=== PATIENT | female | born 1940 | race Caucasian/White ===

== ENCOUNTER → 2018-03-07 | Outpatient (CLI) | payer MEDICARE ==
--- NOTE | 2018-03-09 08:51 | MM ---
Reason for exam: screening (asymptomatic). Last mammogram was performed 5 years and 1 month ago. History: Patient is postmenopausal. Family history of breast cancer in 2 paternal cousins and breast cancer in paternal aunt at age 60. Took hormonal contraceptives for 3 years beginning at age 20. Took estrogen for 6 months beginning at age 29. Taking other hormone for 10 years beginning at age 58. Physical Findings: A clinical breast exam by your physician is recommended on an annual basis and results should be correlated with mammographic findings. MG 3D Screening Mammo W/Cad Bilateral CC and MLO view(s) were taken. Prior study comparison: January 24, 2013, bilateral digital screening mammo w/CAD. September 29, 2011, bilateral digital screening mammo w/CAD. New 1.4cm cutaneous mass undersurface of the right breast measuring 1.4cm corresponds to the boil indicated by the tech. Otherwise, no significant change. ASSESSMENT: Probably benign, BI-RAD 3 RECOMMENDATION: Follow-up diagnostic mammogram of the right breast in 3 months. (following treatment of patient's boil) Manage on a clinical basis with regard to patient ruptured right breast boil.
== END | disposition home or self-care (01) ==
LOC: RADMAMWWP 11:18
PROVIDERS: ATTEND Family Medicine
DX: Z12.31 Encounter for screening mammogram for malignant neoplasm of breast (principal)
CPT/HCPCS: 77063; 77067

== ENCOUNTER → 2018-03-10 | Day surgery (SDC) | payer MEDICARE ==
[~2018-03-10] MED LIST: ALLOPURINOL 300 MG TAB PO SCH; ALPRAZolam 0.25 MG TAB PO PRN; ALPRAZolam 0.5 MG TAB PO PRN; ASPIRIN 325 MG TAB PO STA; FOLIC ACID PO SCH; IOPAMIDOL-370 125ML BTL INJ ONE; LEVOTHYROXINE 75 MCG TAB PO SCH; LIDOCAINE 2% INJ 20 MG/ML (20 ML MDV) ONE; LIDOCAINE 2% INJ 20 MG/ML SQ ONE; METOPROLOL TARTRATE 50 MG TAB PO SCH; MULTIVITAMINS, THERA 1 EACH TAB PO SCH; NITROGLYCERIN SL TABS 0.4 MG TAB SUBLINGUAL PRN; NON-FORMULARY DRUG (Aspirin [Adult Low Dose Aspirin Ec] 81 MG) PO SCH; NON-FORMULARY DRUG (Calcium Carbonate [Calcium] 1 TAB) PO SCH; NON-FORMULARY DRUG (Cyanocobalamin (Vitamin B-12) [Vitamin B-12] 1,000 MCG) PO SCH; NON-FORMULARY DRUG (Lovastatin 40 MG) PO SCH; NON-FORMULARY DRUG (Omeprazole 20 MG) PO SCH; RX INFO: IV CONTRAST WAS GIVEN 1 EACH MISC MISCELLANE PRN; SODIUM CHLORIDE 0.9% 1,000 ML IV SCH; SODIUM CHLORIDE 0.9% 1,000 ML in EMPTY BAG 1 BAG IV ONE; TERAZOSIN 2 MG PO SCH; VERAPAMIL 2.5 MG/ML 2 ML AMP ONE; fentaNYL (PF) 50 MCG/ML 2 ML AMP IV ONE; fentaNYL (PF) 50 MCG/ML 2 ML AMP ONE
[2018-03-10 07:13] VITALS: RESP 18; TEMP 98.2
--- NOTE | 2018-03-10 09:01 | CC ---
CARDIAC CATHETERIZATION REPORT Ms. Carbone is a 77-year-old female with a known history of coronary artery disease, status post coronary artery bypass grafting performed in 1997, who presented with symptoms of progressive dyspnea and had an abnormal myocardial perfusion imaging with evidence of stress-induced ischemia involving the anterolateral wall. In view of that, recommendation made regarding cardiac catheterization. The procedures, risks and complication were discussed with the patient who is in full understanding and agreement. PROCEDURE: Patient was brought to the Wireless Cellular Technician in a fasting semi-sedated state after receiving fentanyl and Benadryl and achieving moderate conscious sedated state using Xylocaine anesthesia and Seldinger technique, a 6-Palestinian sheath was introduced in the right femoral artery. Selective right and left angiography performed using 6-Palestinian 4 bend right and left Carola catheter. Multiple views of the coronary artery including hemiaxial views were obtained. Following that, the 6-Palestinian right Carola catheter was used to cannulate the saphenous vein graft to the right coronary artery, to ramus intermedius and DONOVAN to LAD. Images of the grafts were obtained. Following that, a 6- Palestinian tight pigtail catheter was introduced into the left ventricle and a 30 degree KAYE view of the left ventricle was obtained. Following that, the catheter and sheaths were removed. Hemostasis was obtained with deployment of an Angio-Seal. There was no immediate complication. Patient was returned to her room in stable condition. FINDINGS: 1. FLUOROSCOPY: There was calcification involving the left main, LAD and left circumflex. 2. LEFT MAIN: This vessel is a large bifurcating left circumflex, left anterior descending artery. Left main coronary artery has a 99% stenosis distally. 3. LEFT ANTERIOR DESCENDING ARTERY: This vessel is totally occluded proximally with no significant antegrade flow. 4. LEFT CIRCUMFLEX: This vessel is totally occluded proximally with no antegrade flow. 5. RIGHT CORONARY ARTERY: This vessel is totally occluded proximally with no antegrade flow. 6. SAPHENOUS VEIN GRAFT TO THE RIGHT CORONARY ARTERY: The proximal distal anastomotic site are patent. The flow into the PDA and PLV is brisk. There is intimal disease in the [place] right coronary artery with area of stenosis up to 40%-50%. The rest of the vessel has no high-grade stenosis. 7. SAPHENOUS VEIN GRAFT TO THE RAMUS INTERMEDIUS: The proximal distal anastomotic site are patent. The flow into the ramus intermedius is brisk. There is intimal disease into the saphenous vein graft with an area of stenosis up to 20%-30% without any evidence of high-grade stenosis. 8. DONOVAN TO LAD: The distal anastomotic site is patent. The flow into the LAD is brisk. There is no evidence of high-grade stenosis. 9. LEFT VENTRICULOGRAM: Left ventriculogram is performed in 30 degree KAYE view and revealed mid anterior wall hypokinesis. Estimated ejection fraction 50%. There was no significant mitral regurgitation. An incidental abdominal aortic aneurysm was noted. HEMODYNAMICS: There was no gradient across the aortic valve. The left ventricle end-diastolic pressure was 11. Diastolic pressure was 16-20 mmHg. CONCLUSION: 1. Severe triple-vessel disease. 2. Patent DONOVAN to left anterior descending artery. 3. Patent saphenous vein graft to the right coronary artery into the ramus intermedius. 4. Mildly impaired left ventricular systolic function with evidence of abdominal aortic aneurysm. RECOMMENDATION: I will maximize her medical therapy and initiate anticoagulation. She will be further evaluated regarding her abdominal aortic aneurysm and depending on progress, further recommendation will be made. Those findings and recommendations were discussed with the patient and her family who is in full understanding and agreement. Duration of procedure is 20 minutes. MMODL / IJN: [id number] /
[2018-03-10 13:00] VITALS: BP 122/72; PULSE 105
== END | disposition home or self-care (01) ==
LOC: CATHCVL 06:23
PROVIDERS: ATTEND Internal Medicine Interventional Cardiology
DX: I25.10 Atherosclerotic heart disease of native coronary artery without angina pectoris (principal); I25.810 Atherosclerosis of coronary artery bypass graft(s) without angina pectoris; I25.84 Coronary atherosclerosis due to calcified coronary lesion; I25.82 Chronic total occlusion of coronary artery; I10 Essential (primary) hypertension; I48.1 Persistent atrial fibrillation; E78.2 Mixed hyperlipidemia; Z82.49 Family history of ischemic heart disease and other diseases of the circulatory system; Z79.82 Long term (current) use of aspirin; Z79.890 Hormone replacement therapy; Z79.899 Other long term (current) drug therapy
CPT/HCPCS: 93459; C1760; C1894; C1769; J2001; J3010; Q9967

== ENCOUNTER → 2018-03-14 | Outpatient (CLI) | payer MEDICARE ==
--- NOTE | 2018-03-14 11:32 | US ---
EXAMINATION TYPE: US abdomen complete DATE OF EXAM: 03/14/2018 COMPARISON: PET 2013 CLINICAL HISTORY: Abdominal Aortic Aneurysm I71.4. AAA seen on recent heart cath EXAM MEASUREMENTS: Liver Length: 15.5 cm Gallbladder Wall: 0.2 cm CBD: 0.6 cm Spleen: 13.4 cm Right Kidney: 9.7 x 4.9 x 4.7 cm Left Kidney: 9.6 x 4.9 x 5.0 cm Pancreas: visualized portions wnl, tail limited by overlying midline bowel gas Liver: somewhat heterogeneous without any definite lesion seen at this time Gallbladder: wnl Evidence for sonographic Singh's sign: no CBD: wnl Spleen: enlarged Right Kidney: dilated renal pelvis, 1.6 x 1.8 x 1.7cm exophytic hypoechoic area mid pole Left Kidney: wnl Upper IVC: wnl Abd Aorta: distal aorta AAA measuring 2.9 x 3.2cm and measuring 4 cm in length Visualized aorta shows aneurysm up to 3.2 cm transversely distal aspect new or more prominent from pr ior PET/CT. The visualized liver is heterogeneous without suspicious mass or ductal dilatation. The intrahepatic portion of the IVC is within normal limits. There is no evidence of cholelithiasis. Co mmon bile duct is unremarkable. The visualized portions of the pancreas are homogenous. The spleen is unremarkable. Some cortical thinning in right kidney is present. There is prominent right renal p marco a without calyceal dilatation consistent with extrarenal pelvis redemonstrated. Technologist jana s 1.6 cm round hypoechoic anechoic exophytic lesion likely reflecting proteinaceous cyst which correl ates with CT axial image 77. Left kidney and spleen are unremarkable. IMPRESSION: There is 3.2 cm aneurysm of the infrarenal abdominal aorta.
== END | disposition home or self-care (01) ==
LOC: RADUSWWP 10:25
PROVIDERS: ATTEND Internal Medicine Interventional Cardiology
DX: I71.4 Abdominal aortic aneurysm, without rupture (principal)
CPT/HCPCS: 76700

== ENCOUNTER 2018-08-11 07:40 | Day surgery (SDC) | payer MEDICARE ==
[2018-08-05 16:29] VITALS: BMI 28.3
[~2018-08-11 07:40] MED LIST changes: -ALLOPURINOL 300 MG TAB PO SCH; -ALPRAZolam 0.25 MG TAB PO PRN; -ALPRAZolam 0.5 MG TAB PO PRN; -ASPIRIN 325 MG TAB PO STA; -FOLIC ACID PO SCH; +HEPARIN SODIUM,PORCINE 5,000 UNIT/ML 1 ML VIAL SQ ONE; -IOPAMIDOL-370 125ML BTL INJ ONE; -LEVOTHYROXINE 75 MCG TAB PO SCH; -LIDOCAINE 2% INJ 20 MG/ML (20 ML MDV) ONE; -LIDOCAINE 2% INJ 20 MG/ML SQ ONE; -METOPROLOL TARTRATE 50 MG TAB PO SCH; -MULTIVITAMINS, THERA 1 EACH TAB PO SCH; -NITROGLYCERIN SL TABS 0.4 MG TAB SUBLINGUAL PRN; -NON-FORMULARY DRUG (Aspirin [Adult Low Dose Aspirin Ec] 81 MG) PO SCH; -NON-FORMULARY DRUG (Calcium Carbonate [Calcium] 1 TAB) PO SCH; -NON-FORMULARY DRUG (Cyanocobalamin (Vitamin B-12) [Vitamin B-12] 1,000 MCG) PO SCH; -NON-FORMULARY DRUG (Lovastatin 40 MG) PO SCH; -NON-FORMULARY DRUG (Omeprazole 20 MG) PO SCH; +Pre Op ABX Message 1 EACH MISC MISCELLANE ONE; -RX INFO: IV CONTRAST WAS GIVEN 1 EACH MISC MISCELLANE PRN; -SODIUM CHLORIDE 0.9% 1,000 ML IV SCH; -SODIUM CHLORIDE 0.9% 1,000 ML in EMPTY BAG 1 BAG IV ONE; -TERAZOSIN 2 MG PO SCH; -VERAPAMIL 2.5 MG/ML 2 ML AMP ONE; -fentaNYL (PF) 50 MCG/ML 2 ML AMP IV ONE; -fentaNYL (PF) 50 MCG/ML 2 ML AMP ONE
[2018-08-11 08:30] VITALS: TEMP 98.2
[2018-08-11] MEDS ORDERED: LACTATED RINGERS 1,000 ML IV ONE (08:44)
[2018-08-11] MEDS ORDERED: LIDOCAINE 1% 20 ML VIAL (10MG/ML) FOR IV START INTRADERMA ONE (08:44)
[2018-08-11] MEDS ORDERED: DEXAMETHASONE SOD PHOSPHATE 10 MG/ML 1 ML VIAL IV ONE (08:45)
[2018-08-11] MEDS ORDERED: ONDANSETRON 4 MG/2 ML VIAL IVP ONE (08:45)
--- NOTE | 2018-08-11 08:54 | P.GSHP ---
History of Present Illness H&P Date: 08/11/18 Chief Complaint: Right chest wall skin lesion Cyst 77-year-old female who has a right chest wall skin lesion. The patient has had the lesion several months. It has some intermittent drainage. His located at the inframammary crease under the right breast. Past Medical History Past Medical History: Hyperlipidemia, Hypertension, Thyroid Disorder Additional Past Medical History / Comment(s): GOUT. ANEMIA (NOT SURE WHAT EXACTLY TYPE). History of Any Multi-Drug Resistant Organisms: None Reported Past Surgical History: Section, Coronary Bypass/CABG, Heart Catheterization, Heart Catheterization With Stent, Hysterectomy Additional Past Surgical History / Comment(s): TRIPLE BYPASS. LEFT KNEE TOTAL X2. COLONOSCOPY Past Anesthesia/Blood Transfusion Reactions: No Reported Reaction, Blood Transfusion Reaction Additional Past Anesthesia/Blood Transfusion Reaction / Comment(s): SLOW TO WAKE. HAS HAD 2 UNITS OF BLOOD IN THE PAST FIVE YEARS. Date of Last Stent Placement:: 1995 Smoking Status: Never smoker - Past Family History Mother Family Medical History: No Reported History Father Family Medical History: Cancer Medications and Allergies Home Medications Medication Instructions Recorded Confirmed Type Calcium Carbonate [Calcium] 1 tab PO DAILY 03/08/18 08/05/18 History Cyanocobalamin (Vitamin B-12) 1,000 mcg PO DAILY 03/08/18 08/05/18 History [Vitamin B-12] Folic Acid 1 tab PO DAILY 03/08/18 08/05/18 History Levothyroxine Sodium [Synthroid] 75 mg PO QAM 03/08/18 08/05/18 History Lovastatin [Mevacor] 40 mg PO HS 03/08/18 08/05/18 History Metoprolol Tartrate [Lopressor] 50 mg PO TID 03/08/18 08/05/18 History Multivitamins, Thera [Multivitamin 1 tab PO DAILY 03/08/18 08/05/18 History (formulary)] Omeprazole [PriLOSEC] 20 mg PO HS 03/08/18 08/05/18 History Terazosin [Hytrin] 2 mg PO HS 03/08/18 08/05/18 History Warfarin [Coumadin] 2.5 mg PO MOTUTHSA 08/05/18 08/05/18 History Warfarin [Coumadin] 5 mg PO SUWEFR 08/05/18 08/05/18 History Allergies Allergy/AdvReac Type Severity Reaction Status Date / Time adhesive tape Allergy Rash/Hives Verified 08/11/18 08:11 nickel Allergy REACTED TO Verified 08/11/18 08:11 METAL, KNEE HAD TO REPLACED. codeine AdvReac Nausea & Verified 08/11/18 08:11 Vomiting Surgical - Exam Vital Signs Temp Pulse Resp BP Pulse Ox 98.2 F 95 16 120/75 98 08/11/18 08:28 08/11/18 08:28 08/11/18 08:28 08/11/18 08:28 08/11/18 08:28 - General well developed, no distress - Eyes PERRL - ENT normal pinna - Neck no masses - Respiratory normal expansion - Abdomen Abdomen: soft, non tender - Integumentary 2 cm skin lesion in the right inframammary crease. There is some minimal inflammation. Assessment and Plan Assessment: Right chest wall skin lesion. We'll perform excision.
[2018-08-11] MEDS ORDERED: PROPOFOL 10 MG/ML 20 ML VIAL IV ONE (09:23)
[2018-08-11] MEDS ORDERED: fentaNYL (PF) 50 MCG/ML 2 ML AMP ONE (09:23)
[2018-08-11] MEDS ORDERED: BUPIVACAIN-EPI 0.25%-1:200,000 30 ML VIAL SQ ONE ×2 (09:23→09:41)
[2018-08-11] MEDS ORDERED: MIDAZOLAM 2 MG/2 ML VIAL ONE (09:23)
[2018-08-11] MEDS ORDERED: SODIUM CHLORIDE 0.9% 50 ML with ceFAZolin 2,000 MG IV ONE ×2 (09:39)
--- NOTE | 2018-08-11 10:07 | P.OP ---
Date of Procedure: 08/11/18 Preoperative Diagnosis: Right chest wall skin lesion Postoperative Diagnosis: Right chest wall skin lesion Procedure(s) Performed: Excision of right chest wall skin lesion Anesthesia: EMERY Surgeon: Tommy Hernandez Estimated Blood Loss (ml): 2 Pathology: other (Right chest wall skin lesion) Condition: stable Disposition: PACU Description of Procedure: The patient's placed on the operating table in supine position. She received IV sedation. Her right chest wall was prepped and draped usual sterile fashion. The area was anesthetized 1% local Xylocaine. An elliptical skin incision is made around the lesion. Lesion was located at the inframammary crease. Using left cautery and subcu tissues were divided. The skin was closed interrupted 3-0 Monocryl suture. Dermabond was applied. Patient top procedure well was sent to recovery in stable condition.
[2018-08-11 10:18] VITALS: BP 124/86; PULSE 108; RESP 14
== END 2018-08-11 10:38 | disposition home or self-care (01) ==
LOC: OR 07:40
PROVIDERS: ATTEND Surgery
DX: L72.0 Epidermal cyst (principal); L92.9 Granulomatous disorder of the skin and subcutaneous tissue, unspecified; L90.5 Scar conditions and fibrosis of skin; I10 Essential (primary) hypertension; E78.5 Hyperlipidemia, unspecified; E07.9 Disorder of thyroid, unspecified; M10.9 Gout, unspecified; I48.91 Unspecified atrial fibrillation; Z79.01 Long term (current) use of anticoagulants; Z95.1 Presence of aortocoronary bypass graft; Z95.5 Presence of coronary angioplasty implant and graft; Z79.890 Hormone replacement therapy; Z79.899 Other long term (current) drug therapy; Z88.5 Allergy status to narcotic agent; Z91.09 Other allergy status, other than to drugs and biological substances
CPT/HCPCS: 88304; 11403; J2250; J1644; J1100; J2405; J0690; J3010; J2704

== ENCOUNTER → 2019-03-17 | Outpatient (CLI) | payer MEDICARE ==
--- NOTE | 2019-03-21 07:39 | MM ---
Reason for exam: screening (asymptomatic). Last mammogram was performed 1 year ago. History: Patient is postmenopausal. Family history of breast cancer in 2 paternal cousins and breast cancer in paternal aunt at age 60. Took hormonal contraceptives for 3 years beginning at age 20. Took estrogen for 6 months beginning at age 29. Taking other hormone for 10 years beginning at age 58. Physical Findings: A clinical breast exam by your physician is recommended on an annual basis and results should be correlated with mammographic findings. MG 3D Screening Mammo W/Cad Bilateral CC and MLO view(s) were taken. Prior study comparison: March 07, 2018, bilateral MG 3d screening mammo w/cad. There are scattered fibroglandular densities. No significant changes when compared with prior studies. ASSESSMENT: Negative, BI-RAD 1 RECOMMENDATION: Routine screening mammogram of both breasts in 1 year.
== END | disposition home or self-care (01) ==
LOC: RADMAMWWP 14:05
PROVIDERS: ATTEND Family Medicine
DX: Z12.31 Encounter for screening mammogram for malignant neoplasm of breast (principal)
CPT/HCPCS: 77063; 77067

== ENCOUNTER 2019-07-30 19:38 | Emergency (ER) | payer MEDICARE ==
[2019-07-30 19:44] VITALS: RESP 18
[2019-07-30] MEDS ORDERED: SODIUM CHLORIDE 0.9% 500 ML 500 ML IV STA (20:00)
--- NOTE | 2019-07-30 20:16 | ED ---
General Adult HPI - General Chief complaint: Dizziness Stated complaint: Chest pain Time Seen by Provider: 07/30/19 19:45 Source: patient Mode of arrival: ambulatory Limitations: no limitations - History of Present Illness Initial comments: Dictation was produced using Rad dictation software. please excuse any grammatical, word or spelling errors. Chief Complaint: 78 old female multiple coronary disease presents with dizziness and palpitations for 3 days. History of Present Illness: She is 78-year-old female she has past medical history of CABG, atrial fibrillation, hypertension and thyroid disease. She presents dizziness since Wednesday. Patient denies sensation of the room spinning. She denies any vomiting. She feels lightheaded. She states she also has palpitations. She has a history of atrial fibrillation and takes Coumadin. Patient is a patient complains at this time. She is having difficulty keeping things down. The ROS documented in this emergency department record has been reviewed and confirmed by me. Those systems with pertinent positive or negative responses have been documented in the HPI. All other systems are other negative and/or noncontributory. PHYSICAL EXAM: General Impression: Alert and oriented x3, not in acute distress HEENT: Normocephalic atraumatic, extra-ocular movements intact, pupils equal and reactive to light bilaterally, dry mucous membranes Cardiovascular: Heart regular rate and rhythm, S1&S2 audible, no murmurs, rubs or gallops Chest: Lungs clear to auscultation bilaterally, no rhonchi, no wheeze, no rales Abdomen: Bowel sounds present, abdomen soft, non-tender, non-distended, no organomegaly Musculoskeletal: Pulses present and equal in all extremities, no peripheral edema Motor: no focal deficits noted Neurological: CN II-XII grossly intact, no focal motor or sensory deficits noted Skin: Intact with no visualized rashes Psych: Normal affect and mood ED course: 28-year-old female presents with dizziness and palpitations 3 days. Vital signs upon arrival shows heart rate of 120, respiratory signs within acceptable limits. Physical examination is benign. Patient is well-appearing. Laboratory evaluation obtained. Hemoglobin stable at 12.7. Coag panel shows INR 2.2 which is therapeutic. Metabolic panel is unremarkable. Urinalysis is negative. Chest x-ray shows mild increased interstitial markings compared to old exam which could relate to minimal pulmonary congestion. Patient not complaining of any shortness of breath. She does have good outpatient follow-up with cardiology. 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 Patient is told to follow-up with cardiology as she may need dosed medication adjustments. Patient has some agreeable to plan. Patient be discharged. EKG interpretation: Ventricular rate 104, H fibrillation, QRS 76, QTC 444. No HI prolongation, no QTC prolongation, no ST or T-wave changes noted. No old EKG for comparison. Overall, this EKG is unremarkable - Related Data Home Medications Medication Instructions Recorded Confirmed Cyanocobalamin (Vitamin B-12) 1,000 mcg PO DAILY 03/08/18 07/30/19 [Vitamin B-12] Folic Acid 0.8 mg PO DAILY 03/08/18 07/30/19 Levothyroxine Sodium [Synthroid] 75 mg PO QAM 03/08/18 07/30/19 Metoprolol Tartrate [Lopressor] 50 mg PO TID 03/08/18 07/30/19 Omeprazole [PriLOSEC] 20 mg PO DAILY 03/08/18 07/30/19 Terazosin [Hytrin] 2 mg PO HS 03/08/18 07/30/19 Warfarin [Coumadin] 2.5 mg PO TUTHSA 08/05/18 07/30/19 Warfarin [Coumadin] 5 mg PO SUMOWEFR 08/05/18 07/30/19 Allopurinol [Zyloprim] 300 mg PO DAILY 07/30/19 07/30/19 Calcium Carbonate/Vitamin D3 1 tab PO DAILY 07/30/19 07/30/19 [Calcium 500-Vit D3 200 Tablet] Lovastatin [Mevacor] 20 mg PO HS 07/30/19 07/30/19 Allergies Allergy/AdvReac Type Severity Reaction Status Date / Time adhesive tape Allergy Rash/Hives Verified 07/30/19 20:44 nickel Allergy REACTED TO Verified 07/30/19 20:44 METAL, KNEE HAD TO REPLACED. codeine AdvReac Nausea & Verified 07/30/19 20:44 Vomiting Review of Systems ROS Statement: Those systems with pertinent positive or pertinent negative responses have been documented in the HPI. ROS Other: All systems not noted in ROS Statement are negative. Past Medical History Past Medical History: Atrial Fibrillation, Hyperlipidemia, Hypertension, Thyroid Disorder Additional Past Medical History / Comment(s): GOUT. ANEMIA (NOT SURE WHAT EXACTLY TYPE). History of Any Multi-Drug Resistant Organisms: None Reported Past Surgical History: Section, Coronary Bypass/CABG, Heart Catheterization, Heart Catheterization With Stent, Hysterectomy Additional Past Surgical History / Comment(s): TRIPLE BYPASS. LEFT KNEE TOTAL X2. COLONOSCOPY Past Anesthesia/Blood Transfusion Reactions: No Reported Reaction, Blood Transfusion Reaction Additional Past Anesthesia/Blood Transfusion Reaction / Comment(s): SLOW TO WAKE. HAS HAD 2 UNITS OF BLOOD IN THE PAST FIVE YEARS. Date of Last Stent Placement:: 1995 Past Psychological History: No Psychological Hx Reported Smoking Status: Never smoker - Past Family History Mother Family Medical History: No Reported History Father Family Medical History: Cancer General Exam Limitations: no limitations Course Vital Signs 07/30/19 07/30/19 07/30/19 19:42 20:14 20:26 Temperature 98.1 F Pulse Rate 120 H 110 H 98 Respiratory 18 18 18 Rate Blood Pressure 137/81 131/86 140/92 O2 Sat by Pulse 97 94 L 95 Oximetry Medical Decision Making - Lab Data Result diagrams: 07/30/19 20:10 07/30/19 20:10 Lab Results 07/30/19 07/30/19 07/30/19 Range/Units 20:10 20:10 20:10 WBC 4.7 (3.8-10.6) k/uL RBC 4.21 (3.80-5.40) m/uL Hgb 12.7 (11.4-16.0) gm/dL Hct 39.6 (34.0-46.0) % MCV 94.0 (80.0-100.0) fL MCH 30.2 (25.0-35.0) pg MCHC 32.2 (31.0-37.0) g/dL RDW 15.8 H (11.5-15.5) % Plt Count 175 (150-450) k/uL Neutrophils % 61 % Lymphocytes % 28 % Monocytes % 6 % Eosinophils % 3 % Basophils % 1 % Neutrophils # 2.9 (1.3-7.7) k/uL Lymphocytes # 1.3 (1.0-4.8) k/uL Monocytes # 0.3 (0-1.0) k/uL Eosinophils # 0.2 (0-0.7) k/uL Basophils # 0.0 (0-0.2) k/uL PT 21.8 H (9.0-12.0) sec INR 2.2 H (<1.2) APTT 34.9 H (22.0-30.0) sec Sodium 141 (137-145) mmol/L Potassium 3.7 (3.5-5.1) mmol/L Chloride 107 (98-107) mmol/L Carbon Dioxide 24 (22-30) mmol/L Anion Gap 10 mmol/L BUN 15 (7-17) mg/dL Creatinine 0.96 (0.52-1.04) mg/dL Est GFR (CKD-EPI)AfAm 66 (>60 ml/min/1.73 sqM) Est GFR (CKD-EPI)NonAf 57 (>60 ml/min/1.73 sqM) Glucose 127 H (74-99) mg/dL Calcium 10.2 (8.4-10.2) mg/dL Magnesium 1.8 (1.6-2.3) mg/dL Total Bilirubin 0.3 (0.2-1.3) mg/dL AST 23 (14-36) U/L ALT 18 (9-52) U/L Alkaline Phosphatase 66 (38-126) U/L Troponin I (0.000-0.034) ng/mL Total Protein 7.3 (6.3-8.2) g/dL Albumin 4.3 (3.5-5.0) g/dL TSH 3.850 (0.465-4.680) mIU/L Urine Color Urine Appearance (Clear) Urine pH (5.0-8.0) Ur Specific [place] (1.001-1.035) Urine Protein (Negative) Urine Glucose (UA) (Negative) Urine Ketones (Negative) Urine Blood (Negative) Urine Nitrite (Negative) Urine Bilirubin (Negative) Urine Urobilinogen (<2.0) mg/dL Ur Leukocyte Esterase (Negative) Urine RBC (0-5) /hpf Urine WBC (0-5) /hpf Ur Squamous Epith Cells (0-4) /hpf Urine Bacteria (None) /hpf Urine Mucus (None) /hpf 07/30/19 07/30/19 Range/Units 20:10 23:20 WBC (3.8-10.6) k/uL RBC (3.80-5.40) m/uL Hgb (11.4-16.0) gm/dL Hct (34.0-46.0) % MCV (80.0-100.0) fL MCH (25.0-35.0) pg MCHC (31.0-37.0) g/dL RDW (11.5-15.5) % Plt Count (150-450) k/uL Neutrophils % % Lymphocytes % % Monocytes % % Eosinophils % % Basophils % % Neutrophils # (1.3-7.7) k/uL Lymphocytes # (1.0-4.8) k/uL Monocytes # (0-1.0) k/uL Eosinophils # (0-0.7) k/uL Basophils # (0-0.2) k/uL PT (9.0-12.0) sec INR (<1.2) APTT (22.0-30.0) sec Sodium (137-145) mmol/L Potassium (3.5-5.1) mmol/L Chloride (98-107) mmol/L Carbon Dioxide (22-30) mmol/L Anion Gap mmol/L BUN (7-17) mg/dL Creatinine (0.52-1.04) mg/dL Est GFR (CKD-EPI)AfAm (>60 ml/min/1.73 sqM) Est GFR (CKD-EPI)NonAf (>60 ml/min/1.73 sqM) Glucose (74-99) mg/dL Calcium (8.4-10.2) mg/dL Magnesium (1.6-2.3) mg/dL Total Bilirubin (0.2-1.3) mg/dL AST (14-36) U/L ALT (9-52) U/L Alkaline Phosphatase (38-126) U/L Troponin I <0.012 (0.000-0.034) ng/mL Total Protein (6.3-8.2) g/dL Albumin (3.5-5.0) g/dL TSH (0.465-4.680) mIU/L Urine Color Light Yellow Urine Appearance Clear (Clear) Urine pH 6.0 (5.0-8.0) Ur Specific [place] 1.007 (1.001-1.035) Urine Protein Negative (Negative) Urine Glucose (UA) Negative (Negative) Urine Ketones Negative (Negative) Urine Blood Small H (Negative) Urine Nitrite Negative (Negative) Urine Bilirubin Negative (Negative) Urine Urobilinogen <2.0 (<2.0) mg/dL Ur Leukocyte Esterase Negative (Negative) Urine RBC 1 (0-5) /hpf Urine WBC 3 (0-5) /hpf Ur Squamous Epith Cells 3 (0-4) /hpf Urine Bacteria Rare H (None) /hpf Urine Mucus Rare H (None) /hpf Disposition Clinical Impression: Palpitations, Generalized weakness Disposition: HOME SELF-CARE Condition: Good Instructions (If sedation given, give patient instructions): Heart Palpitations (ED) Is patient prescribed a controlled substance at d/c from ED?: No Referrals: Brittany Mike DO [Primary Care Provider] - 1-2 days Time of Disposition: 00:10
[2019-07-30 20:23] LABS: Basophils % (A) 1 %; Eosinophils # (A) 0.2 k/uL (0-0.7); Eosinophils % (A) 3 %; HCT 39.6 % (34.0-46.0); HGB 12.7 gm/dL (11.4-16.0); Lymphocytes # (A) 1.3 k/uL (1.0-4.8); Lymphocytes % (A) 28 %; MCH 30.2 pg (25.0-35.0); MCHC 32.2 g/dL (31.0-37.0); Monocytes # (A) 0.3 k/uL (0-1.0); Monocytes % (A) 6 %; Neutrophils # (A) 2.9 k/uL (1.3-7.7); Neutrophils % (A) 61 %; Platelet Count 175 k/uL (150-450); RBC 4.21 m/uL (3.80-5.40); RDW 15.8 % (11.5-15.5); WBC 4.7 k/uL (3.8-10.6)
[2019-07-30 20:33] LABS: Albumin 4.3 g/dL (3.5-5.0); Calcium 10.2 mg/dL (8.4-10.2); Magnesium 1.8 mg/dL (1.6-2.3); Potassium 3.7 mmol/L (3.5-5.1); Total Bilirubin 0.3 mg/dL (0.2-1.3); Total Protein 7.3 g/dL (6.3-8.2)
[2019-07-30 20:35] LABS: INR 2.2 (<1.2); Partial Thromboplastin Time 34.9 sec (22.0-30.0); Prothrombin Time 21.8 sec (9.0-12.0)
--- NOTE | 2019-07-30 21:03 | XR ---
EXAMINATION TYPE: XR chest 2V DATE OF EXAM: 07/30/2019 COMPARISON: 02/28/2013 HISTORY: Dysrhythmia TECHNIQUE: Frontal and lateral views of the chest are obtained. FINDINGS: Heart is enlarged. There is no gross heart failure. There is coarsening of the lung markin gs. There are sternal wires. There is no pleural effusion. There are no hilar masses. IMPRESSION: Increased interstitial markings compared to old exam could relate to minimal pulmonary c ongestion that is a change compared to old exam. There is no overt heart failure.
[2019-07-30 23:35] LABS: Appearance,Urine Clear (Clear); Bacteria,Urine Rare /hpf; Bilirubin,Urine Negative (Negative); Blood,Urine Small (Negative); Color,Urine Light Yellow; Glucose,Urine (UA) Negative (Negative); Ketones,Urine Negative (Negative); Leukocyte Esterase,Urine Negative (Negative); Mucus,Urine Rare /hpf; Nitrite,Urine Negative (Negative); Protein,Urine Negative (Negative); RBC,Urine 1 /hpf (0-5); Specific Gravity,Urine 1.007 (1.001-1.035); Squamous Epithelial Cell,Urine 3 /hpf (0-4); Urobilinogen,Urine <2.0 mg/dL (<2.0)
[2019-07-31 00:28] VITALS: BP 138/70; PULSE 81; TEMP 97.9
== END 2019-07-31 00:30 | disposition home or self-care (01) ==
LOC: EC 19:38
DX: R00.2 Palpitations (principal); R53.1 Weakness; R42 Dizziness and giddiness; R07.9 Chest pain, unspecified; R91.8 Other nonspecific abnormal finding of lung field; I48.91 Unspecified atrial fibrillation; E78.5 Hyperlipidemia, unspecified; I10 Essential (primary) hypertension; M10.9 Gout, unspecified; E07.9 Disorder of thyroid, unspecified; Z95.1 Presence of aortocoronary bypass graft; Z95.818 Presence of other cardiac implants and grafts; Z95.5 Presence of coronary angioplasty implant and graft; Z79.890 Hormone replacement therapy; Z79.01 Long term (current) use of anticoagulants; Z79.899 Other long term (current) drug therapy; Z91.048 Other nonmedicinal substance allergy status; Z88.5 Allergy status to narcotic agent
CPT/HCPCS: 36415; 71046; 80053; 81001; 83735; 84443; 84484; 85025; 85610; 85730; 93005; 96360; 99284

== ENCOUNTER → 2019-09-27 | Outpatient (CLI) | payer MEDICARE ==
--- NOTE | 2019-09-27 14:05 | CT ---
EXAMINATION TYPE: CT abdomen pelvis wo con DATE OF EXAM: 09/27/2019 HISTORY: generalized abdominal pain, constipation, bloating CT DLP: 885 mGycm. Automated Exposure Control for Dose Reduction was Utilized. TECHNIQUE: CT scan of the abdomen and pelvis is performed without oral or IV contrast. COMPARISON: PET/CT October 21, 2013 FINDINGS: Within the limitations of a non-contrast study, the following observations are made. LUNG BASES: Moderate linear and slightly nodular bibasilar fibrotic changes are present new from 2013 PET/CT. LIVER/GB: No significant abnormality is appreciated. PANCREAS: No significant abnormality is seen. SPLEEN: No significant abnormality is seen. ADRENALS: No significant abnormality is seen. KIDNEYS: Some cortical thinning of both kidneys redemonstrated. Redemonstration of exophytic 1.5 cm s imple appearing thin-walled cyst laterally right kidney mid to lower pole level. BOWEL: Sigmoid colonic diverticula. No suspicious small or large bowel dilatation. GENITAL ORGANS: Uterus is surgically absent. LYMPH NODES: No greater than 1cm abdominal or pelvic lymph nodes are appreciated. OSSEOUS STRUCTURES: Mild multilevel spurring in the lower thoracic spine. Moderate narrowing and spur ring of both hip joints. OTHER: Moderate atherosclerotic change in the aorta with focal 3.0 cm AAA axial image 58. This is pro gressed slightly from prior PET/CT 2013 from 2.7 cm. Redemonstration of small to moderate size left f at containing periumbilical hernia image 68. IMPRESSION: 1. No bowel obstruction. No significant colonic fecal prominence or constipation. No acute findings a re evident. 2. Atherosclerotic and mildly aneurysmal abdominal aorta measuring up to 3.0 cm. 3. Suspect fairly moderate new bibasilar fibrotic changes. Correlate clinically. 3.
== END | disposition home or self-care (01) ==
LOC: RADCTMAIN 13:35
PROVIDERS: ATTEND Family Medicine
DX: I70.0 Atherosclerosis of aorta (principal); I71.4 Abdominal aortic aneurysm, without rupture
CPT/HCPCS: 74176

== ENCOUNTER 2019-11-21 06:32 | Day surgery (SDC) | payer MEDICARE ==
[2019-11-20 11:16] VITALS: BMI 30.2
[~2019-11-21 06:32] MED LIST changes: -HEPARIN SODIUM,PORCINE 5,000 UNIT/ML 1 ML VIAL SQ ONE; +LACTATED RINGERS 1,000 ML IV SCH; +LIDOCAINE 1% 20 ML VIAL (10MG/ML) FOR IV START INTRADERMA PRN; -Pre Op ABX Message 1 EACH MISC MISCELLANE ONE
[2019-11-21 07:16] VITALS: TEMP 97.5
[2019-11-21] MEDS ORDERED: PROPOFOL 10 MG/ML 20 ML VIAL IV ONE (09:16)
[2019-11-21] MEDS ORDERED: LIDOCAINE 1% INJ 10MG/ML (20 ML MDV) ONE (09:16)
--- NOTE | 2019-11-21 09:21 | P.GSHP ---
History of Present Illness H&P Date: 11/21/19 Chief Complaint: GERD, screening colonoscopy, change in bowel habits This a 70-year-old female who presents today for EGD colonoscopy. She's had issues GERD. She's also had issues with change in bowel habits increased constipation. She presents today for screening colonoscopy. Past Medical History Past Medical History: Atrial Fibrillation, Hyperlipidemia, Hypertension, Thyroid Disorder Additional Past Medical History / Comment(s): irregular stools,contipation,abdominal pain and incontinent of stools when sneezing or coughing,doesn't feel like emptying bowel, hx GOUT,ANEMIA History of Any Multi-Drug Resistant Organisms: None Reported Past Surgical History: Section, Coronary Bypass/CABG, Heart Catheterization, Heart Catheterization With Stent, Hysterectomy Additional Past Surgical History / Comment(s): TRIPLE BYPASS. LEFT KNEE TOTAL X2. COLONOSCOPY Past Anesthesia/Blood Transfusion Reactions: No Reported Reaction Additional Past Anesthesia/Blood Transfusion Reaction / Comment(s): SLOW TO WAKE. no problems with prior blood transfusions Date of Last Stent Placement:: 1995 Smoking Status: Never smoker - Past Family History Mother Family Medical History: No Reported History Father Family Medical History: Cancer Sister(s) Family Medical History: Cancer Additional Family Medical History / Comment(s): ovarian CA Medications and Allergies Home Medications Medication Instructions Recorded Confirmed Type Cyanocobalamin (Vitamin B-12) 1,000 mcg PO DAILY 03/08/18 11/21/19 History [Vitamin B-12] Folic Acid 0.8 mg PO DAILY 03/08/18 11/21/19 History Levothyroxine Sodium [Synthroid] 75 mg PO QAM 03/08/18 11/21/19 History Metoprolol Tartrate [Lopressor] 50 mg PO TID 03/08/18 11/21/19 History Omeprazole [PriLOSEC] 20 mg PO DAILY 03/08/18 11/21/19 History Terazosin [Hytrin] 2 mg PO DAILY 03/08/18 11/21/19 History Warfarin [Coumadin] 2.5 mg PO Q2D 08/05/18 11/21/19 History Warfarin [Coumadin] 5 mg PO Q2D 08/05/18 11/21/19 History Allopurinol [Zyloprim] 300 mg PO DAILY 07/30/19 11/21/19 History Calcium Carbonate/Vitamin D3 2 tab PO DAILY 07/30/19 11/21/19 History [Calcium 500-Vit D3 200 Tablet] Lovastatin [Mevacor] 20 mg PO HS 07/30/19 11/21/19 History Allergies Allergy/AdvReac Type Severity Reaction Status Date / Time adhesive tape Allergy Rash/Hives,paper Verified 11/21/19 06:50 tape is ok nickel Allergy REACTED TO Verified 11/21/19 06:50 METAL, KNEE HAD TO REPLACED. codeine AdvReac Nausea & Verified 11/21/19 06:50 Vomiting Surgical - Exam Vital Signs Temp Pulse Resp BP Pulse Ox 97.5 F L 97 16 126/81 96 11/21/19 07:05 11/21/19 07:05 11/21/19 07:05 11/21/19 07:05 11/21/19 07:05 - General well developed, well nourished, no distress - Eyes PERRL - ENT normal pinna - Neck no masses - Respiratory normal expansion - Cardiovascular Rhythm: regular - Abdomen Abdomen: soft, non tender Assessment and Plan Assessment: GERD we'll perform EGD. Change in bowel habits with increasing constipation. We'll perform screening colonoscopy
--- NOTE | 2019-11-21 09:45 | P.OP ---
Date of Procedure: 11/21/19 Preoperative Diagnosis: Change in bowel habits . GERD Postoperative Diagnosis: Antral gastritis Hiatal hernia Esophagitis Diverticulosis Procedure(s) Performed: EGD Colonoscopy Anesthesia: MAC Surgeon: Tommy Hernandez Pathology: other (Antrum, esophagus) Condition: stable Disposition: PACU Description of Procedure: The patient's placed on the endoscopy table in the lateral position. She received IV sedation. The gastroscope placed oropharynx passed in the esophagus and into the stomach. Scope was then placed through the pylorus. The first and second portion of the duodenum appeared normal. Scope was then brought back the antrum and this appeared moderately inflamed with evidence of significant gastritis at the pylorus. This area was biopsied. The scope was unretroflexed and remainder of the stomach appeared normal. The GE junction was at 47 is. The distals esophagus appeared inflamed. There is evidence of a small hiatal hernia. The esophagus was biopsied. The proximal esophagus. Normal. Scope withdrawn for patient. Next digital rectal exam was performed which revealed hemorrhoids. The flexible colonoscope was then placed patient anus and passed throughout the colon. Cecum was not visualizing the tortuous the bowel. This point scope was brought back and the remainder of the right colon, transverse colon appeared normal. In the descending and sigmoid colon there is moderate diverticular changes. The scope was then brought back the rectum and this appeared normal. Scope withdrawn for patient.
[2019-11-21 10:06] VITALS: BP 143/76; PULSE 114; RESP 20
== END 2019-11-21 10:32 | disposition home or self-care (01) ==
LOC: ORWHC2ENDO 06:32
PROVIDERS: ATTEND Surgery
DX: K29.50 Unspecified chronic gastritis without bleeding (principal); K21.0 Gastro-esophageal reflux disease with esophagitis; K44.9 Diaphragmatic hernia without obstruction or gangrene; K57.30 Diverticulosis of large intestine without perforation or abscess without bleeding; K64.9 Unspecified hemorrhoids; K59.00 Constipation, unspecified; I48.91 Unspecified atrial fibrillation; I25.10 Atherosclerotic heart disease of native coronary artery without angina pectoris; I10 Essential (primary) hypertension; E78.5 Hyperlipidemia, unspecified; E07.9 Disorder of thyroid, unspecified; M10.9 Gout, unspecified; Z95.1 Presence of aortocoronary bypass graft; Z95.5 Presence of coronary angioplasty implant and graft; Z79.890 Hormone replacement therapy; Z79.899 Other long term (current) drug therapy; Z79.01 Long term (current) use of anticoagulants; Z88.5 Allergy status to narcotic agent; Z88.8 Allergy status to other drugs, medicaments and biological substances; Z91.09 Other allergy status, other than to drugs and biological substances; Z98.890 Other specified postprocedural states; Z90.710 Acquired absence of both cervix and uterus; Z96.652 Presence of left artificial knee joint; Z80.41 Family history of malignant neoplasm of ovary; Z80.9 Family history of malignant neoplasm, unspecified
CPT/HCPCS: 45378; 43239; 88305; J2001; J2704

== ENCOUNTER 2020-08-11 15:30 | Emergency (ER) | payer MEDICARE ==
[2020-08-11] MEDS ORDERED: LIDOCAINE 5% PATCH TOPICAL STA (16:09)
--- NOTE | 2020-08-11 16:12 | ED ---
General Adult HPI - General Chief complaint: Chest Pain Stated complaint: chest pain Time Seen by Provider: 08/11/20 15:43 Source: patient Mode of arrival: ambulatory Limitations: no limitations - History of Present Illness Initial comments: Dictation was produced using [employer] dictation software. please excuse any grammatical, word or spelling errors. This patient was cared for during a federal and state declared state of emergency secondary to Covid 19 Chief Complaint: 79-year-old female presents today with right-sided chest pain. History of Present Illness: 79-year-old female presents with right-sided chest pain she states her symptoms started early this morning. Patient states sharp and worse with deep inspiration. She denies any trauma to the chest per she states it hurts when you press over her right chest. No associated dizziness, nausea. Her symptoms do not rate to her extremities jaw or shoulders. She has past medical history of coronary artery disease and multivessel bypass grafting. She denies any associated diaphoresis. The ROS documented in this emergency department record has been reviewed and confirmed by me. Those systems with pertinent positive or negative responses have been documented in the HPI. All other systems are other negative and/or noncontributory. PHYSICAL EXAM: General Impression: Alert and oriented x3, not in acute distress HEENT: Normocephalic atraumatic, extra-ocular movements intact, pupils equal and reactive to light bilaterally, mucous membranes moist. Cardiovascular: Heart regular rate and rhythm Chest: Able to complete full sentences, no retractions, no tachypnea, tenderness to palpation over the right anterolateral chest Abdomen: abdomen soft, non-tender, non-distended, no organomegaly Musculoskeletal: Pulses present and equal in all extremities, no peripheral edema Motor: no focal deficits noted Neurological: CN II-XII grossly intact, no focal motor or sensory deficits noted Skin: Intact with no visualized rashes Psych: Normal affect and mood ED course: 79-year-old female presents with musculoskeletal chest pain. Signs upon arrival shows heart rate of 104, rest vital signs within acceptable limits. EKG shows A. fib. Patient has history of A. fib. She does take anticoagulation medications. On physical examination pain is very atypical and reproducible with palpation.Laboratory evaluation was obtained. CBC unremarkable. Coag panel is negative. Metabolic panel is negative. Troponin is negative. Patient observed in emergency department for several hours with no acute events. Patient reevaluated at bedside after blood patch administration she does report slight improvement of her symptoms. Patient given one [place] pills. Patient has an ALLERGY to codeine however has taken medical in the past post surgically. Patient is tolerating [place]. Patient evaluated with improvement of symptoms. Patient given prescription for [place]. She is told to follow-up with her primary care physician regarding outpatient management of her symptoms. Return parameters discussed. Patient will be discharged. EKG interpretation: Ventricular rate 84, A. fib, QRS 82, QTc 453. No NE prolongation, no QTC prolongation, no ST or T-wave changes noted. EKG compared to 07/30/2019 showing no changes. Overall, this EKG is unremarkable - Related Data Home Medications Medication Instructions Recorded Confirmed Cyanocobalamin (Vitamin B-12) 1,000 mcg PO DAILY 03/08/18 11/21/19 [Vitamin B-12] Folic Acid 0.8 mg PO DAILY 03/08/18 11/21/19 Levothyroxine Sodium [Synthroid] 75 mg PO QAM 03/08/18 11/21/19 Metoprolol Tartrate [Lopressor] 50 mg PO TID 03/08/18 11/21/19 Omeprazole [PriLOSEC] 20 mg PO DAILY 03/08/18 11/21/19 Terazosin [Hytrin] 2 mg PO DAILY 03/08/18 11/21/19 Warfarin [Coumadin] 2.5 mg PO Q2D 08/05/18 11/21/19 Warfarin [Coumadin] 5 mg PO Q2D 08/05/18 11/21/19 Calcium Carbonate/Vitamin D3 2 tab PO DAILY 07/30/19 11/21/19 [Calcium 500-Vit D3 200 Tablet] Lovastatin [Mevacor] 20 mg PO HS 07/30/19 11/21/19 allopurinoL [Zyloprim] 300 mg PO DAILY 07/30/19 11/21/19 Previous Rx's Medication Instructions Recorded HYDROcodone/APAP 5-325MG [[place] 1 tab PO Q6HR PRN 3 Days #6 tab 08/11/20 5-325] Allergies Allergy/AdvReac Type Severity Reaction Status Date / Time adhesive tape Allergy Rash/Hives,paper Verified 08/11/20 15:35 tape is ok nickel Allergy REACTED TO Verified 08/11/20 15:35 METAL, KNEE HAD TO REPLACED. codeine AdvReac Nausea & Verified 08/11/20 15:35 Vomiting Review of Systems ROS Statement: Those systems with pertinent positive or pertinent negative responses have been documented in the HPI. ROS Other: All systems not noted in ROS Statement are negative. Past Medical History Past Medical History: Atrial Fibrillation, Hyperlipidemia, Hypertension, Thyroid Disorder Additional Past Medical History / Comment(s): irregular stools,contipation,abdominal pain and incontinent of stools when sneezing or coughing,doesn't feel like emptying bowel, hx GOUT,ANEMIA History of Any Multi-Drug Resistant Organisms: None Reported Past Surgical History: Section, Coronary Bypass/CABG, Heart Catheterization, Heart Catheterization With Stent, Hysterectomy Additional Past Surgical History / Comment(s): TRIPLE BYPASS. LEFT KNEE TOTAL X2. COLONOSCOPY Past Anesthesia/Blood Transfusion Reactions: No Reported Reaction Additional Past Anesthesia/Blood Transfusion Reaction / Comment(s): SLOW TO WAKE. no problems with prior blood transfusions Date of Last Stent Placement:: 1995 Past Psychological History: No Psychological Hx Reported Smoking Status: Never smoker Past Alcohol Use History: None Reported Past Drug Use History: None Reported - Past Family History Mother Family Medical History: No Reported History Father Family Medical History: Cancer Sister(s) Family Medical History: Cancer Additional Family Medical History / Comment(s): ovarian CA General Exam Limitations: no limitations Course Vital Signs 08/11/20 08/11/20 08/11/20 15:32 16:40 17:51 Temperature 97.8 F 98.2 F Pulse Rate 104 H 98 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 ] Respiratory 18 20 Rate Blood Pressure 125/71 131/75 O2 Sat by Pulse 98 96 Oximetry Medical Decision Making - Lab Data Result diagrams: 08/11/20 16:10 08/11/20 16:10 Lab Results 08/11/20 08/11/20 08/11/20 Range/Units 16:10 16:10 16:10 WBC 5.8 (3.8-10.6) k/uL RBC 4.19 (3.80-5.40) m/uL Hgb 12.3 (11.4-16.0) gm/dL Hct 39.1 (34.0-46.0) % MCV 93.3 (80.0-100.0) fL MCH 29.5 (25.0-35.0) pg MCHC 31.6 (31.0-37.0) g/dL RDW 15.8 H (11.5-15.5) % Plt Count 195 (150-450) k/uL Neutrophils % 61 % Lymphocytes % 28 % Monocytes % 4 % Eosinophils % 4 % Basophils % 2 % Neutrophils # 3.5 (1.3-7.7) k/uL Lymphocytes # 1.6 (1.0-4.8) k/uL Monocytes # 0.2 (0-1.0) k/uL Eosinophils # 0.2 (0-0.7) k/uL Basophils # 0.1 (0-0.2) k/uL PT 21.1 H (9.0-12.0) sec INR 2.2 H (<1.2) APTT 32.7 H (22.0-30.0) sec Sodium 137 (137-145) mmol/L Potassium 4.0 (3.5-5.1) mmol/L Chloride 104 (98-107) mmol/L Carbon Dioxide 27 (22-30) mmol/L Anion Gap 6 mmol/L BUN 14 (7-17) mg/dL Creatinine 0.74 (0.52-1.04) mg/dL Est GFR (CKD-EPI)AfAm 90 (>60 ml/min/1.73 sqM) Est GFR (CKD-EPI)NonAf 78 (>60 ml/min/1.73 sqM) Glucose 104 H (74-99) mg/dL Calcium 10.1 (8.4-10.2) mg/dL Magnesium 1.9 (1.6-2.3) mg/dL Total Bilirubin 0.7 (0.2-1.3) mg/dL AST 50 H (14-36) U/L ALT 35 H (4-34) U/L Alkaline Phosphatase 70 (38-126) U/L Troponin I (0.000-0.034) ng/mL Total Protein 7.3 (6.3-8.2) g/dL Albumin 4.3 (3.5-5.0) g/dL 08/11/20 Range/Units 16:10 WBC (3.8-10.6) k/uL RBC (3.80-5.40) m/uL Hgb (11.4-16.0) gm/dL Hct (34.0-46.0) % MCV (80.0-100.0) fL MCH (25.0-35.0) pg MCHC (31.0-37.0) g/dL RDW (11.5-15.5) % Plt Count (150-450) k/uL Neutrophils % % Lymphocytes % % Monocytes % % Eosinophils % % Basophils % % Neutrophils # (1.3-7.7) k/uL Lymphocytes # (1.0-4.8) k/uL Monocytes # (0-1.0) k/uL Eosinophils # (0-0.7) k/uL Basophils # (0-0.2) k/uL PT (9.0-12.0) sec INR (<1.2) APTT (22.0-30.0) sec Sodium (137-145) mmol/L Potassium (3.5-5.1) mmol/L Chloride (98-107) mmol/L Carbon Dioxide (22-30) mmol/L Anion Gap mmol/L BUN (7-17) mg/dL Creatinine (0.52-1.04) mg/dL Est GFR (CKD-EPI)AfAm (>60 ml/min/1.73 sqM) Est GFR (CKD-EPI)NonAf (>60 ml/min/1.73 sqM) Glucose (74-99) mg/dL Calcium (8.4-10.2) mg/dL Magnesium (1.6-2.3) mg/dL Total Bilirubin (0.2-1.3) mg/dL AST (14-36) U/L ALT (4-34) U/L Alkaline Phosphatase (38-126) U/L Troponin I <0.012 (0.000-0.034) ng/mL Total Protein (6.3-8.2) g/dL Albumin (3.5-5.0) g/dL Disposition Clinical Impression: Chest pain Disposition: HOME SELF-CARE Condition: Good Instructions (If sedation given, give patient instructions): Costochondritis (E D) Prescriptions: HYDROcodone/APAP 5-325MG [[place] 5-325] 1 tab PO Q6HR PRN 3 Days #6 tab PRN Reason: Severe Pain Is patient prescribed a controlled substance at d/c from ED?: No Referrals: Brittany Mike DO [Primary Care Provider] - 1-2 days Time of Disposition: 17:57
--- NOTE | 2020-08-11 16:14 | XR ---
EXAMINATION TYPE: XR chest 2V DATE OF EXAM: 08/11/2020 COMPARISON: 07/30/2019 HISTORY: Chest pain TECHNIQUE: FINDINGS: Heart is enlarged. There are sternal wires. There is coarsening of the interstitial marking s. There is no gross heart failure. There are chest leads. Costophrenic angles are clear. IMPRESSION: Coarse lung markings similar to old exam and consistent with prominent fibrosis. Stable c ardiomegaly. No obvious heart failure.
[2020-08-11 16:26] LABS: Basophils # (A) 0.1 k/uL (0-0.2); Basophils % (A) 2 %; Eosinophils # (A) 0.2 k/uL (0-0.7); Eosinophils % (A) 4 %; HCT 39.1 % (34.0-46.0); HGB 12.3 gm/dL (11.4-16.0); Lymphocytes # (A) 1.6 k/uL (1.0-4.8); Lymphocytes % (A) 28 %; MCH 29.5 pg (25.0-35.0); MCHC 31.6 g/dL (31.0-37.0); MCV 93.3 fL (80.0-100.0); Mean Platelet Volume 7.2; Monocytes # (A) 0.2 k/uL (0-1.0); Monocytes % (A) 4 %; Neutrophils # (A) 3.5 k/uL (1.3-7.7); Neutrophils % (A) 61 %; Platelet Count 195 k/uL (150-450); RBC 4.19 m/uL (3.80-5.40); RDW 15.8 % (11.5-15.5); WBC 5.8 k/uL (3.8-10.6)
[2020-08-11 16:37] LABS: INR 2.2 (<1.2); Partial Thromboplastin Time 32.7 sec (22.0-30.0); Prothrombin Time 21.1 sec (9.0-12.0)
[2020-08-11 16:38] LABS: Albumin 4.3 g/dL (3.5-5.0); Calcium 10.1 mg/dL (8.4-10.2); Magnesium 1.9 mg/dL (1.6-2.3); Total Bilirubin 0.7 mg/dL (0.2-1.3); Total Protein 7.3 g/dL (6.3-8.2)
[2020-08-11] MEDS ORDERED: HYDROcodone/APAP 5-325MG 1 EACH TAB PO STA (17:33)
[2020-08-11 18:26] VITALS: BP 130/74; PULSE 92; RESP 18; TEMP 98.1
== END 2020-08-11 18:25 | disposition home or self-care (01) ==
LOC: EC 15:30
DX: R07.89 Other chest pain (principal); I48.91 Unspecified atrial fibrillation; I10 Essential (primary) hypertension; E07.9 Disorder of thyroid, unspecified; D64.9 Anemia, unspecified; E78.5 Hyperlipidemia, unspecified; M10.9 Gout, unspecified; Z79.01 Long term (current) use of anticoagulants; Z79.899 Other long term (current) drug therapy; Z79.890 Hormone replacement therapy; Z88.5 Allergy status to narcotic agent; Z91.048 Other nonmedicinal substance allergy status; Z95.1 Presence of aortocoronary bypass graft; Z95.5 Presence of coronary angioplasty implant and graft
CPT/HCPCS: 36415; 71046; 80053; 83735; 84484; 85025; 85610; 85730; 93005; 99285

== ENCOUNTER → 2021-07-10 | Outpatient (CLI) | payer MEDICARE ==
--- NOTE | 2021-07-11 12:16 | MM ---
Reason for exam: screening (asymptomatic). Last mammogram was performed 2 years and 4 months ago. History: Patient is postmenopausal. Family history of breast cancer in 2 paternal cousins and breast cancer in paternal aunt at age 60. Took hormonal contraceptives for 3 years beginning at age 20. Took estrogen for 6 months beginning at age 29. Taking other hormone for 10 years beginning at age 58. Physical Findings: A clinical breast exam by your physician is recommended on an annual basis and results should be correlated with mammographic findings. MG 3D Screening Mammo W/Cad Bilateral CC and MLO view(s) were taken. Prior study comparison: March 17, 2019, bilateral MG 3d screening mammo w/cad. March 07, 2018, bilateral MG 3d screening mammo w/cad. No significant changes when compared with prior studies. ASSESSMENT: Benign, BI-RAD 2 RECOMMENDATION: Routine screening mammogram of both breasts in 1 year.
== END | disposition home or self-care (01) ==
LOC: RADMAMWWP 13:34
PROVIDERS: ATTEND Family Medicine
DX: Z12.31 Encounter for screening mammogram for malignant neoplasm of breast (principal); Z78.0 Asymptomatic menopausal state; Z80.3 Family history of malignant neoplasm of breast; Z79.3 Long term (current) use of hormonal contraceptives
CPT/HCPCS: 77063; 77067

== ENCOUNTER 2022-01-19 10:41 | Observation (INO) | payer MEDICARE ==
--- NOTE | 2022-01-19 11:29 | ED ---
General Adult HPI - General Chief complaint: Weakness Stated complaint: weakness Time Seen by Provider: 01/19/22 11:00 Source: patient, EMS Mode of arrival: EMS - History of Present Illness Initial comments: Dictation was produced using [employer] dictation software. please excuse any grammatical, word or spelling errors. Chief Complaint: Patient is an 81-year-old female presents to the emergency department for weakness and fall History of Present Illness: Patient is a 81-year-old female she has multiple comorbidities. She presents to emergency department for generalized weakness and fall. This morning she was able to get to the toilet however oriented toe she felt so weak that she tried to stand up and fell to the ground. She states she cut herself. Denies any head trauma. No loss of consciousness. Patient states she was in IVP from the fall. She tried to get up but was unable to. Her is a diesel truck technician and is not home at the moment. Neighbor was notified and found patient on the ground. EMS was called. Patient states she feels really weak to her lower extremities. Denies any pain complaints. Patient has no other complaints at this time. The ROS documented in this emergency department record has been reviewed and confirmed by me. Those systems with pertinent positive or negative responses have been documented in the HPI. All other systems are other negative and/or noncontributory. PHYSICAL EXAM: General Impression: Alert and oriented x3, not in acute distress HEENT: Normocephalic atraumatic, extra-ocular movements intact, pupils equal and reactive to light bilaterally, mucous membranes moist. Cardiovascular: Heart regular rate and rhythm Chest: Able to complete full sentences, no retractions, no tachypnea Abdomen: abdomen soft, non-tender, non-distended, no organomegaly Musculoskeletal: Pulses present and equal in all extremities, no peripheral edema Motor: no focal deficits noted Neurological: CN II-XII grossly intact, no focal motor or sensory deficits noted Skin: Intact with no visualized rashes Psych: Normal affect and mood ED course: 81-year-old female presents to the emergency department for weakness and fall this morning. Signs upon arrival shows 93% on room air, rest of vital signs within acceptable limits. Post x-ray chest x-ray shows no acute processes. Computed tomography scan of the head C-spine shows no traumatic injuries. Blood work was obtained. CBC, coag panel and metabolic panel is all within acceptable limits. Urinalysis shows 14 squamous epithelial cells with 13 white blood cells. Pending culture. Disposition options were discussed with patient she states she is home alone and is feeling too weak to go home. She has no family or friend assistance. Patient be admitted observation. Case discussed with Dr. Mei who is willing to accept patient care. EKG interpretation: Ventricular rate 92, A. fib, QRS 81, QTC 377. no QTC prolongation, no ST or T-wave changes noted. EKG compared to 08/11/2020 showing no changes. Overall, this EKG is unremarkable - Related Data Home Medications Medication Instructions Recorded Confirmed Metoprolol Tartrate [Lopressor] 50 mg PO BID 03/08/18 01/19/22 Warfarin [Coumadin] 2.5 mg PO SUTUTHSA@209908/05/18 01/19/22 allopurinoL [Zyloprim] 300 mg PO DAILY 07/30/19 01/19/22 Diltiazem HCl [Cardizem CD] 120 mg PO DAILY 01/19/22 01/19/22 Isosorbide Mononitrate ER [Imdur] 30 mg PO DAILY 01/19/22 01/19/22 Levothyroxine Sodium [Synthroid] 100 mcg PO DAILY 01/19/22 01/19/22 Lovastatin [Mevacor] 40 mg PO DAILY 01/19/22 01/19/22 Nitroglycerin Sl Tabs [Nitrostat] 0.4 mg SL Q5M PRN 01/19/22 01/19/22 Oxybutynin Chloride [Ditropan] 5 mg PO DAILY 01/19/22 01/19/22 Pantoprazole [Protonix] 40 mg PO DAILY 01/19/22 01/19/22 Terazosin [Hytrin] 2 mg PO HS 01/19/22 01/19/22 Warfarin [Coumadin] 5 mg PO MOWEFR@209901/19/22 01/19/22 Allergies Allergy/AdvReac Type Severity Reaction Status Date / Time adhesive tape Allergy Rash/Hives,paper Verified 01/19/22 12:56 tape is ok nickel Allergy REACTED TO Verified 01/19/22 12:56 METAL, KNEE HAD TO REPLACED. codeine AdvReac Hallucinati Verified 01/19/22 12:56 ons Review of Systems ROS Statement: Those systems with pertinent positive or pertinent negative responses have been documented in the HPI. ROS Other: All systems not noted in ROS Statement are negative. Past Medical History Past Medical History: Atrial Fibrillation, Hyperlipidemia, Hypertension, Thyroid Disorder Additional Past Medical History / Comment(s): irregular stools,contipation,abdominal pain and incontinent of stools when sneezing or coughing,doesn't feel like emptying bowel, hx GOUT,ANEMIA History of Any Multi-Drug Resistant Organisms: None Reported Past Surgical History: Section, Coronary Bypass/CABG, Heart Catheterization, Heart Catheterization With Stent, Hysterectomy Additional Past Surgical History / Comment(s): TRIPLE BYPASS. LEFT KNEE TOTAL X2. COLONOSCOPY Past Anesthesia/Blood Transfusion Reactions: No Reported Reaction Additional Past Anesthesia/Blood Transfusion Reaction / Comment(s): SLOW TO WAKE. no problems with prior blood transfusions Date of Last Stent Placement:: 1995 Past Psychological History: No Psychological Hx Reported Smoking Status: Never smoker Past Alcohol Use History: None Reported Past Drug Use History: None Reported - Past Family History Mother Family Medical History: No Reported History Father Family Medical History: Cancer Sister(s) Family Medical History: Cancer Additional Family Medical History / Comment(s): ovarian CA Course Vital Signs 01/19/22 10:42 Pulse Rate 62 Respiratory 18 Rate Blood Pressure 128/90 O2 Sat by Pulse 93 L Oximetry Medical Decision Making - Lab Data Result diagrams: 01/19/22 12:05 01/19/22 12:46 Lab Results 01/19/22 01/19/22 01/19/22 Range/Units 12:05 12:05 12:46 WBC 10.9 H (3.8-10.6) k/uL RBC 4.91 (3.80-5.40) m/uL Hgb 16.0 (11.4-16.0) gm/dL Hct 49.4 H (34.0-46.0) % MCV 100.6 H (80.0-100.0) fL MCH 32.6 (25.0-35.0) pg MCHC 32.4 (31.0-37.0) g/dL RDW 15.5 (11.5-15.5) % Plt Count 173 (150-450) k/uL MPV 8.3 Neutrophils % 84 % Lymphocytes % 9 % Monocytes % 5 % Eosinophils % 1 % Basophils % 0 % Neutrophils # 9.2 H (1.3-7.7) k/uL Lymphocytes # 1.0 (1.0-4.8) k/uL Monocytes # 0.6 (0-1.0) k/uL Eosinophils # 0.1 (0-0.7) k/uL Basophils # 0.0 (0-0.2) k/uL Macrocytosis Slight PT 23.8 H (9.0-12.0) sec INR 2.4 H (<1.2) APTT 30.1 H (22.0-30.0) sec Sodium (137-145) mmol/L Potassium (3.5-5.1) mmol/L Chloride (98-107) mmol/L Carbon Dioxide (22-30) mmol/L Anion Gap mmol/L BUN (7-17) mg/dL Creatinine (0.52-1.04) mg/dL Est GFR (CKD-EPI)AfAm (>60 ml/min/1.73 sqM) Est GFR (CKD-EPI)NonAf (>60 ml/min/1.73 sqM) Glucose (74-99) mg/dL Plasma Lactic Acid Lloyd 1.5 (0.7-2.0) mmol/L Calcium (8.4-10.2) mg/dL Magnesium (1.6-2.3) mg/dL Troponin I (0.000-0.034) ng/mL Urine Color Urine Appearance (Clear) Urine pH (5.0-8.0) Ur Specific [place] (1.001-1.035) Urine Protein (Negative) Urine Glucose (UA) (Negative) Urine Ketones (Negative) Urine Blood (Negative) Urine Nitrite (Negative) Urine Bilirubin (Negative) Urine Urobilinogen (<2.0) mg/dL Ur Leukocyte Esterase (Negative) Urine RBC (0-5) /hpf Urine WBC (0-5) /hpf Ur Squamous Epith Cells (0-4) /hpf Urine Bacteria (None) /hpf Urine Mucus (None) /hpf 01/19/22 01/19/22 01/19/22 Range/Units 12:46 12:46 14:01 WBC (3.8-10.6) k/uL RBC (3.80-5.40) m/uL Hgb (11.4-16.0) gm/dL Hct (34.0-46.0) % MCV (80.0-100.0) fL MCH (25.0-35.0) pg MCHC (31.0-37.0) g/dL RDW (11.5-15.5) % Plt Count (150-450) k/uL MPV Neutrophils % % Lymphocytes % % Monocytes % % Eosinophils % % Basophils % % Neutrophils # (1.3-7.7) k/uL Lymphocytes # (1.0-4.8) k/uL Monocytes # (0-1.0) k/uL Eosinophils # (0-0.7) k/uL Basophils # (0-0.2) k/uL Macrocytosis PT (9.0-12.0) sec INR (<1.2) APTT (22.0-30.0) sec Sodium 137 (137-145) mmol/L Potassium 4.1 (3.5-5.1) mmol/L Chloride 108 H (98-107) mmol/L Carbon Dioxide 22 (22-30) mmol/L Anion Gap 7 mmol/L BUN 25 H (7-17) mg/dL Creatinine 0.69 (0.52-1.04) mg/dL Est GFR (CKD-EPI)AfAm >90 (>60 ml/min/1.73 sqM) Est GFR (CKD-EPI)NonAf 82 (>60 ml/min/1.73 sqM) Glucose 86 (74-99) mg/dL Plasma Lactic Acid Lloyd (0.7-2.0) mmol/L Calcium 9.4 (8.4-10.2) mg/dL Magnesium 2.0 (1.6-2.3) mg/dL Troponin I 0.013 (0.000-0.034) ng/mL Urine Color Light Yellow Urine Appearance Cloudy H (Clear) Urine pH 7.0 (5.0-8.0) Ur Specific [place] 1.010 (1.001-1.035) Urine Protein Negative (Negative) Urine Glucose (UA) Negative (Negative) Urine Ketones Negative (Negative) Urine Blood Trace H (Negative) Urine Nitrite Negative (Negative) Urine Bilirubin Negative (Negative) Urine Urobilinogen <2.0 (<2.0) mg/dL Ur Leukocyte Esterase Large H (Negative) Urine RBC 4 (0-5) /hpf Urine WBC 13 H (0-5) /hpf Ur Squamous Epith Cells 14 H (0-4) /hpf Urine Bacteria Occasional H (None) /hpf Urine Mucus Rare H (None) /hpf Disposition Clinical Impression: Grave disability Disposition: ADMITTED IP TO THIS HOSP Condition: Fair Referrals: Brittany Mike DO [Primary Care Provider] - 1-2 days
--- NOTE | 2022-01-19 12:06 | CT ---
EXAMINATION TYPE: CT brain freddy wo con DATE OF EXAM: 01/19/2022 COMPARISON: None HISTORY: 81-year-old female with pain after fall CT DLP: 1350.8 mGycm Automated exposure control for dose reduction was used. Technique: Examination of the head was done in axial plane without intravenous contrast. Coronal and sagittal reconstructions performed. CT of the cervical spine was obtained in axial plane without intravenous injection of contrast mater ial. Coronal and sagittal reformatted images were obtained from the axial views for evaluation of f ractures, spinal alignment and canal. FINDINGS: Head: There is no evidence of acute intracranial hemorrhage, acute ischemic changes, mass, mass-effect, or extra-axial fluid collection. There is no effacement of cerebral sulci or basal subarachnoid cister ns. There is no hydrocephalus. There is no midline shift. Evans-white matter distinction is preserv ed. Mild generalized supratentorial volume loss. Moderate patchy white matter hypodensities in both cereb ral hemispheres. Prominent prostatic calcification junction of the V3/V4 segments of the vertebral ar teries. The left side is dominant. Paranasal sinuses are well pneumatized. Mild lobulated mucosal thickening left greater than right zen ors of the maxillary sinuses. Slight leftward nasal septal bowing. Orbits and globes are intact. Cervical spine: Degenerative changes left greater than right TMJs. No craniocervical junction anomaly, predental space widening, or prevertebral soft tissue swelling. D egenerative changes C1 dens articulation. Mild degenerative disc disease especially mid to lower cervical spine. Disc osteophyte complex at C6- C7 results in mild central spinal canal narrowing. No watson canal compromise identified by CT. Overall alignment is maintained. No acute fracture of the cervical spine. Scattered facet and uncovertebral joint arthropathy mid to lower cervical spine. Changes result in va riable mild neuroforaminal stenoses, particularly on the right at C3-C4, C4-C5, C5-C6. Sagittal and coronal reformatted images confirm above findings. COMBINED IMPRESSION: 1. Mild generalized atrophy and moderate patchy burden of chronic small vessel ischemic disease. No a cute intracranial abnormality seen. 2. No acute fracture or malalignment of the cervical spine. Mild to moderate multilevel spondylotic c hange.
--- NOTE | 2022-01-19 12:14 | XR ---
EXAMINATION TYPE: XR chest 1V portable DATE OF EXAM: 01/19/2022 Comparison: 08/11/2020 Clinical History: 81-year-old female with pain after fall Findings: Median sternotomy wires are present with post-CABG clips in the mediastinum. Heart is mildly enlarged . Mild interstitial prominence as a chronic appearance and shows improvement from 08/11/2020. Some mil d strandy atelectasis at the right base. No watson consolidation or pleural effusion. No pneumothorax seen. Impression: Borderline to mild cardiomegaly. Chronic appearing changes. Correlate to exclude mild pulmonary vascu lar congestion. No focal infiltrate or other acute process seen.
--- NOTE | 2022-01-19 12:15 | XR ---
EXAMINATION TYPE: XR pelvis AP view DATE OF EXAM: 01/19/2022 Comparison: None Clinical History: 81-year-old female with pain after fall Findings: Mild degenerative changes bilateral hips. More mild to moderate at the left hip with joint space narr owing. Mild osteitis pubis. SI joints appear symmetric and intact. Smooth delineation to the arcuate lines of the sacrum. There is osteopenia but no displaced fracture seen. Impression: Mild bilateral hip OA, left greater than right. There is osteopenia but no displaced fracture seen.
[2022-01-19 12:24] LABS: Basophils % (A) 0 %; Eosinophils # (A) 0.1 k/uL (0-0.7); Eosinophils % (A) 1 %; HCT 49.4 % (34.0-46.0); Lymphocytes % (A) 9 %; MCH 32.6 pg (25.0-35.0); MCHC 32.4 g/dL (31.0-37.0); MCV 100.6 fL (80.0-100.0); Macrocytosis Slight; Mean Platelet Volume 8.3; Monocytes # (A) 0.6 k/uL (0-1.0); Monocytes % (A) 5 %; Neutrophils # (A) 9.2 k/uL (1.3-7.7); Neutrophils % (A) 84 %; Platelet Count 173 k/uL (150-450); RBC 4.91 m/uL (3.80-5.40); RDW 15.5 % (11.5-15.5); WBC 10.9 k/uL (3.8-10.6)
[2022-01-19 12:46] LABS: INR 2.4 (<1.2); Partial Thromboplastin Time 30.1 sec (22.0-30.0); Prothrombin Time 23.8 sec (9.0-12.0)
[2022-01-19 13:13] LABS: African American GFR (CKD) >90 (>60 ml/min/1.73 sqM); Anion Gap 7 mmol/L; Blood Urea Nitrogen 25 mg/dL (7-17); Calcium 9.4 mg/dL (8.4-10.2); Carbon Dioxide 22 mmol/L (22-30); Chloride 108 mmol/L (98-107); Glucose 86 mg/dL (74-99); Non-African American GFR(CKD) 82 (>60 ml/min/1.73 sqM); Potassium 4.1 mmol/L (3.5-5.1); Sodium 137 mmol/L (137-145)
[2022-01-19 14:23] LABS: Appearance,Urine Cloudy (Clear); Bacteria,Urine Occasional /hpf; Bilirubin,Urine Negative (Negative); Blood,Urine Trace (Negative); Color,Urine Light Yellow; Glucose,Urine (UA) Negative (Negative); Ketones,Urine Negative (Negative); Leukocyte Esterase,Urine Large (Negative); Mucus,Urine Rare /hpf; Nitrite,Urine Negative (Negative); Protein,Urine Negative (Negative); RBC,Urine 4 /hpf (0-5); Squamous Epithelial Cell,Urine 14 /hpf (0-4); Urobilinogen,Urine <2.0 mg/dL (<2.0); WBC,Urine 13 /hpf (0-5)
[2022-01-19] MEDS ORDERED: NALOXONE 0.4 MG/ML 1 ML VIAL IV PRN (15:02)
[2022-01-19] MEDS: SODIUM CHLORIDE 0.9% 1,000 ML IV SCH (19:00)
[2022-01-19] MEDS: METOPROLOL TARTRATE 50 MG TAB PO SCH (20:44)
[2022-01-19] MEDS ORDERED: WARFARIN 5 MG TAB PO SCH (21:00)
[2022-01-20] MEDS: LEVOTHYROXINE 100 MCG TAB PO SCH (05:59)
[2022-01-20 06:29] LABS: Prothrombin Time 20.5 sec (9.0-12.0)
[2022-01-20] MEDS: METOPROLOL TARTRATE 50 MG TAB PO SCH ×2 (08:45→23:00)
[2022-01-20] MEDS: ATORVASTATIN 10 MG TAB PO SCH (08:45)
[2022-01-20] MEDS: allopurinoL 300 MG TAB PO SCH (08:45)
[2022-01-20] MEDS: PANTOPRAZOLE 40 MG TABLET PO SCH (08:45)
[2022-01-20] MEDS: DILTIAZEM CD 120 MG CAP.ER.24H PO SCH (08:45)
[2022-01-20] MEDS: ISOSORBIDE MONONITRATE ER 30 MG TAB.ER.24H PO SCH (08:45)
--- NOTE | 2022-01-20 13:29 | P.CNNES ---
History of Present Illness Consult date: 01/20/22 Requesting physician: Lanny Virk Reason for Consult: lower extremity numbness, weakness, recent fall History of Present Illness: This is an 81-year-old woman with history of atrial fibrillation on Coumadin, hypertension, hyperlipidemia, hypothyroidism who presented emergency department on the 01/19/2022 for lower extremity weakness and a recent fall. According to patient she noticed that she is having the lower back pain over the posterior left side that radiated to the posterior leg all the way down to the foot and that occurred about 3 weeks ago and since then she's been having the lower extremity weakness over the bilateral lower extremity initially she noticed over the left than the right as well as now she is noticing got numbness tingling over the bilateral lower extremities. She stated that she had a fall about 2-3 weeks ago in which her legs gave out and she denies any loss of consciousness. She denies any bowel incontinence or constipation. She has been having urinary frequency and some incontinence for the last 4 months. She has sensation that her urine is fall but she stated that she can't control and as a result the she would have leakage. She was not exactly sure about the timeframe of how things started regarding the weakness and the numbness but she knows that started about 3 weeks ago. She saw her primary care and she got the an injection to her lower back which did not help. She said that she did not get any imaging as an outpatient. She denies of any visual disturbance, difficulty swallowing, she has chronic old left neck pain that does not radiate anywhere. Some other workup in the hospital consisted of: Initial vital signs was blood pressure of 128/90, heart rate of 62, respiratory of 18, initial temperature is 98.0 Fahrenheit oral and pulse ox of 93% room air. Initial white blood cell is 10.9 thousand and slightly in the neutrophilic. The MCV is 100.6 and hematocrit is 49.4 otherwise CBC with differential is unremarkable Chemistry panel is a chloride is 108 and the BUN is 25 otherwise is unremarkable PT is 23.8, INR is 2.4 and the PTT is 3.1 on presentation Urinalysis is a leukocyte esterase was large, urine white blood cells 13, squamous epithelial cells is 14 possibly suspicious for urinary tract infection CT of the head is reported as mild generalized atrophy and moderate patchy burden of chronic small vessel ischemic disease. No acute intracranial abnormality seen. I personally reviewed the CT of the head there is no acute or subacute ischemia and there is no parts interpreter proximal hemorrhage. There is no appreciable mass. CT cervical spine was reported as no acute fracture or malalignment of the cervical spine. Mild to moderate multilevel spondylitic changes over the C3-C4 C4-C5 and C5-C6. Review of Systems Review of system: The 12 point system was reviewed and apparent positive and negative per HPI. Past Medical History Past Medical History: Atrial Fibrillation, Hyperlipidemia, Hypertension, Thyroid Disorder Additional Past Medical History / Comment(s): irregular stools,contipation,abdominal pain and incontinent of stools when sneezing or coughing,doesn't feel like emptying bowel, hx GOUT,ANEMIA History of Any Multi-Drug Resistant Organisms: None Reported Past Surgical History: Section, Coronary Bypass/CABG, Heart Catheterization, Heart Catheterization With Stent, Hysterectomy Additional Past Surgical History / Comment(s): TRIPLE BYPASS. LEFT KNEE TOTAL X2. COLONOSCOPY Past Anesthesia/Blood Transfusion Reactions: No Reported Reaction Additional Past Anesthesia/Blood Transfusion Reaction / Comment(s): SLOW TO WAKE. no problems with prior blood transfusions Date of Last Stent Placement:: 1995 Past Psychological History: No Psychological Hx Reported Smoking Status: Never smoker Past Alcohol Use History: None Reported Past Drug Use History: None Reported - Past Family History Mother Family Medical History: No Reported History Father Family Medical History: Cancer Sister(s) Family Medical History: Cancer Additional Family Medical History / Comment(s): ovarian CA Medications and Allergies Home Medications Medication Instructions Recorded Confirmed Type Metoprolol Tartrate [Lopressor] 50 mg PO BID 03/08/18 01/19/22 History Warfarin [Coumadin] 2.5 mg PO SUTUTHSA@2100 08/05/18 01/19/22 History allopurinoL [Zyloprim] 300 mg PO DAILY 07/30/19 01/19/22 History Diltiazem HCl [Cardizem CD] 120 mg PO DAILY 01/19/22 01/19/22 History Isosorbide Mononitrate ER [Imdur] 30 mg PO DAILY 01/19/22 01/19/22 History Levothyroxine Sodium [Synthroid] 100 mcg PO DAILY 01/19/22 01/19/22 History Lovastatin [Mevacor] 40 mg PO DAILY 01/19/22 01/19/22 History Nitroglycerin Sl Tabs [Nitrostat] 0.4 mg SL Q5M PRN 01/19/22 01/19/22 History Oxybutynin Chloride [Ditropan] 5 mg PO DAILY 01/19/22 01/19/22 History Pantoprazole [Protonix] 40 mg PO DAILY 01/19/22 01/19/22 History Terazosin [Hytrin] 2 mg PO HS 01/19/22 01/19/22 History Warfarin [Coumadin] 5 mg PO MOWEFR@2100 01/19/22 01/19/22 History Allergies Allergy/AdvReac Type Severity Reaction Status Date / Time adhesive tape Allergy Rash/Hives,paper Verified 01/19/22 12:56 tape is ok nickel Allergy REACTED TO Verified 01/19/22 12:56 METAL, KNEE HAD TO REPLACED. codeine AdvReac Hallucinati Verified 01/19/22 12:56 ons Physical Examination - Vital Signs Vital Signs: Vital Signs Temp Pulse Pulse Resp BP BP Pulse Ox 01/20/22 07:00 97.6 F 100 14 135/68 97 01/20/22 01:51 97.5 F L 139 H 17 121/89 98 01/19/22 20:17 98.0 F 109 H 18 136/77 96 01/19/22 17:02 56 L 18 118/72 93 L Intake and Output 01/19/22 01/20/22 01/20/22 22:59 06:59 14:59 Intake Total 200 Balance 200 Intake: Oral 200 Other: # Voids 1 3 Weight 70.307 kg GENERAL: The patient is lying in bed and is not in acute distress. CHEST: The heart rate is regular rate rhythm. No murmurs to auscultation. No carotid bruit bilaterally. LUNG: Clear to auscultation bilaterally no wheezing noted throughout. Not labored breathing. ABDOMEN/GI: Bowel sounds present in all 4 quadrants. No tenderness to palpation throughout. NEUROLOGICAL: Higher mental function: The patient is awake, alert, oriented to self, place and time. Patient is following commands. No aphasia and no neglect. Cranial nerves: The pupils are round, equal and reactive to light and accommodation. Visual dior are full to confrontation throughout. Extraocular movement is intact no nystagmus is noted. Facial sensation is normal to touch throughout. The facial strength is normal throughout. Hearing is mildly decreased bilaterally to hand rub. Tongue is midline and moved [id number] without any difficulty. No dysarthria is noted. Shoulder shrug is normal b ilaterally. Motor: Gait is deferred because of her weakness. The strength is bilateral proximal including knee flexion/extesion is 4- while ankle dorsiflexion is 4+ while plantar flexion is 5-. 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 Otherwise 5 over 5 throughout. Normal tone and bulk. Cerebellum: Normal finger to nose bilaterally. Sensation: Sensation is normal to touch throughout. Reflexes (right/left): 1+ throughout upper. Patellar is 0, while ankles are 0- 1. Plantars are mute bilaterally. Results - Laboratory Findings CBC and BMP: 01/19/22 12:05 01/19/22 12:46 Abnormal Lab Findings: Abnormal Labs 01/19/22 01/19/22 01/19/22 12:05 12:05 12:46 WBC 10.9 H Hct 49.4 H MCV 100.6 H Neutrophils # 9.2 H PT 23.8 H INR 2.4 H APTT 30.1 H Chloride 108 H BUN 25 H Urine Appearance Urine Blood Ur Leukocyte Esterase Urine WBC Ur Squamous Epith Cells Urine Bacteria Urine Mucus 01/19/22 01/20/22 14:01 05:40 WBC Hct MCV Neutrophils # PT 20.5 H INR 2.0 H APTT Chloride BUN Urine Appearance Cloudy H Urine Blood Trace H Ur Leukocyte Esterase Large H Urine WBC 13 H Ur Squamous Epith Cells 14 H Urine Bacteria Occasional H Urine Mucus Rare H Assessment and Plan Assessment: Posterior back pain with radiation to leg, with bilateral leg weakness and paresthesia of legs for past 3 weeks. Possibly Lumbosacral radiculopathy/plexopathy. Chronic left neck pain. Paresthesia of bilateral hand. Possible acute urinary tract infection Atrial fibrillation on Coumadin Hypothyroidism Hypertension and on presentation seems the normotensive Plan: I ordered MRI of lumbar/sacral spine w/ and w/o STAT. Consulted Orthopedic surgery team. Ordered vitamin B12, folate, TSH, hemoglobin A1c and CK level. Every 4 hours neuro checks PT and OT are consulted Recommend EMG with NCS of bilateral lower as outpatient. Patient is currently on ceftriaxone for possible urinary tract infection by the primary team. We'll defer the rest of the medical management to primary team The patient is discussed with patient and her nurse. Thank you for the consultation Mo Rivera M.D. Neuro-hospitalist Time with Patient: Greater than 30
--- NOTE | 2022-01-20 14:44 | P.CNOR ---
History of Present Illness - [facility] Consult date: 01/20/22 Consult reason: low back pain History of present illness: Patient is an 81-year-old female who was admitted to [facility] on 01/19/2022 with regards to her lower extremity weakness. Patient apparently was unable to get off her toilet while at home yesterday. She was able to contact a neighbor who was able to help her, she was then brought to the hospital for further evaluation. Also lab tests imaging test were done. She was admitted under internal medicine, neurology consult was initially placed. After their evaluation and imaging test were ordered and reviewed, our orthopedic team was consulted. Patient was evaluated at bedside today, she is resting comfortably. Patient describes over the last 3 weeks the symptoms have presented themselves and fluctuated. She initially noted some lower back pain with radiation of the pain backside of the bilateral legs. She was her primary care provider, they provided a few different injections she describes in the low back region and buttock region. She also received an oral tapering dose of steroids. This did provide some relief. She states that she had a fall about a week ago while in the bathroom, she had noticed some recent pain to the left leg/anterior chest region. And then the most recent issue was yesterday when she was having a very difficult time getting off the toilet due to bilateral lower extremity weakness. Denies any previous surgery to the cervical, thoracic or lumbar spine and she does have history of a left total knee arthroplasty that was done by Dr. Whitley in [place] many years ago. Patient states he normally ambulates with very minimal difficulty. Numbness and tingling throughout both hands. She admits to numbness and tingling in the bilateral feet. She states that the pain that is located in the low back will extend down the back of both legs. Review of Systems Constitutional: Reports as per [facility] Past Medical History Past Medical History: Atrial Fibrillation, Hyperlipidemia, Hypertension, Thyroid Disorder Additional Past Medical History / Comment(s): irregular stools,contipation,abdominal pain and incontinent of stools when sneezing or coughing,doesn't feel like emptying bowel, hx GOUT,ANEMIA History of Any Multi-Drug Resistant Organisms: None Reported Past Surgical History: Section, Coronary Bypass/CABG, Heart Catheteriza tion, Heart Catheterization With Stent, Hysterectomy Additional Past Surgical History / Comment(s): TRIPLE BYPASS. LEFT KNEE TOTAL X2. COLONOSCOPY Past Anesthesia/Blood Transfusion Reactions: No Reported Reaction Additional Past Anesthesia/Blood Transfusion Reaction / Comm: SLOW TO WAKE. no problems with prior blood transfusions Date of Last Stent Placement:: 1995 Past Psychological History: No Psychological Hx Reported Smoking Status: Never smoker Past Alcohol Use History: None Reported Past Drug Use History: None Reported - Past Family History Mother Family Medical History: No Reported History Father Family Medical History: Cancer Sister(s) Family Medical History: Cancer Additional Family Medical History / Comment(s): ovarian CA Medications and Allergies Home Medications Medication Instructions Recorded Confirmed Type Metoprolol Tartrate [Lopressor] 50 mg PO BID 03/08/18 01/19/22 History Warfarin [Coumadin] 2.5 mg PO SUTUTHSA@209908/05/18 01/19/22 History allopurinoL [Zyloprim] 300 mg PO DAILY 07/30/19 01/19/22 History Diltiazem HCl [Cardizem CD] 120 mg PO DAILY 01/19/22 01/19/22 History Isosorbide Mononitrate ER [Imdur] 30 mg PO DAILY 01/19/22 01/19/22 History Levothyroxine Sodium [Synthroid] 100 mcg PO DAILY 01/19/22 01/19/22 History Lovastatin [Mevacor] 40 mg PO DAILY 01/19/22 01/19/22 History Nitroglycerin Sl Tabs [Nitrostat] 0.4 mg SL Q5M PRN 01/19/22 01/19/22 History Oxybutynin Chloride [Ditropan] 5 mg PO DAILY 01/19/22 01/19/22 History Pantoprazole [Protonix] 40 mg PO DAILY 01/19/22 01/19/22 History Terazosin [Hytrin] 2 mg PO HS 01/19/22 01/19/22 History Warfarin [Coumadin] 5 mg PO MOWEFR@209901/19/22 01/19/22 History Allergies Allergy/AdvReac Type Severity Reaction Status Date / Time adhesive tape Allergy Rash/Hives,paper Verified 01/19/22 12:56 tape is ok nickel Allergy REACTED TO Verified 01/19/22 12:56 METAL, KNEE HAD TO REPLACED. codeine AdvReac Hallucinati Verified 01/19/22 12:56 ons Physical Examination Gen: AOx3, NAD VSS stable at this time Integument: No obvious open lesions or skin changes noted throughout the cervical, thoracic or lumbar spine Palpation: She demonstrates no mild tenderness with palpation to the midline and paraspinal region of the cervical spine and lumbar spine ROM: Full range of motion is noted in all major muscle groups of the bilateral upper and lower extremity Sensory Exam: Senory exam to light touch is intact C5-T1 Senosry exam to light touch is intact L2-S1 Patient admits vague numbness and tingling in the bilateral feet and hands Motor: 55 strength is appreciated in bilateral upper extremities with shoulder elevation, shoulder abduction, wrist extension, wrist flexion, elbow extension, elbow flexion, cooker loader 4/5 strength appreciated in the bilateral lower extremities with hip flexion, knee flexion, knee extension, dorsiflexion 5/5 strength appreciated with plantarflexion, EHL, FHL Reflexes: Negative Yaya's bilaterally Negative Babinski bilaterally Negative Homans bilaterally Special Test: Logroll maneuver in the bilateral lower extremities reproduces no groin pain Results - Labs Labs: Abnormal Lab Results - Last 24 Hours (Table) 01/20/22 Range/Units 05:40 PT 20.5 H (9.0-12.0) sec INR 2.0 H (<1.2) Microbiology - Last 24 Hours (Table) 01/19/22 14:01 Urine Culture - Preliminary Urine,Voided H & H 01/19/22 Range/Units 12:05 Hgb 16.0 (11.4-16.0) gm/dL Hct 49.4 H (34.0-46.0) % Coagulation 01/19/22 01/20/22 Range/Units 12:05 05:40 INR 2.4 H 2.0 H (<1.2) Result Diagrams: 01/19/22 12:05 01/19/22 12:46 - Diagnostic results CT scan - cervical: report reviewed, image reviewed (Images along with reports are reviewed. No acute fractures or dislocations were noted. Multiple s pondylitic changes noted and C3 to C4, C4-5, C5-C6) Assessment and Plan Assessment: Low back pain Lumbar radiculopathy, bilateral lower extremities Bilateral lower extremity weakness Paresthesias bilateral hands Multilevel cervical spondylosis Other medical comorbidities Plan: I was able to discuss the case, including physical exam findings and imaging studies my attending Dr. Ibarra Await MRI results of the lumbar/sacral spine, these were ordered by neurology Pending MRI results of the lumbar/sacral region, may order further imaging test, this including thoracic and cervical spine Pain control, utilize Tylenol and anti-inflammatories at this time GI and DVT prophylaxis per primary medical service Other medical supervisor recommendations Further recommendations to follow Time with Patient: Less than 30
--- NOTE | 2022-01-20 17:03 | MR ---
EXAMINATION TYPE: MR lumbar spine wo/w con DATE OF EXAM: 01/20/2022 COMPARISON: None HISTORY: Low back pain CONTRAST: Standard multiplanar, multisequence MRI departmental protocol images were obtained without contrast a nd with 6 mL intravenous gadolinium contrast. The lumbar vertebrae have normal alignment. Disc spaces are fairly normal. There is no compression fr acture. There is minimal biconcave deformity of the endplates in the lumbar spine. No significant ove rall loss of height. There is no spinal stenosis. The lumbar neural foramina are fairly well-maintained. There is minimal posterior disc bulging at T11-12 and T12-L1. There is developmentally adequate spinal canal and no sp inal stenosis. There is a minimal posterior disc bulge at L3-4 and L4-5. The contrast images show no pathologic enhancement. Sacroiliac joints are intact. There is no lumbar paraspinal mass. IMPRESSION: Minimal biconcave deformity of the lumbar vertebral bodies consistent with some mild degree of osteom alacia. No spinal stenosis. No acute bony abnormality. No evidence of any significant lumbar disc her niation.
[2022-01-20] MEDS: SODIUM CHLORIDE 0.9% 1,000 ML IV SCH (17:23)
[2022-01-20] MEDS ORDERED: WARFARIN 2.5 MG TAB PO SCH (21:00)
[2022-01-21 00:25] LABS: Folate, Serum >20.00 ng/mL (4.40-31.00)
[2022-01-21 00:32] LABS: Creatine Kinase 40 U/L (26-186)
[2022-01-21 03:41] VITALS: RESP 16
[2022-01-21] MEDS: LEVOTHYROXINE 100 MCG TAB PO SCH (05:13)
[2022-01-21 07:39] LABS: INR 2.4 (<1.2); Prothrombin Time 23.6 sec (9.0-12.0)
--- NOTE | 2022-01-21 08:34 | P.HPIM ---
History of Present Illness H&P Date: 01/20/22 Chief Complaint: weakness Denise Godinez is an 81 yo F with PMH of atrial fibrillation, HTN, hypothyroidism who was brought to the ED after experiencing profound weakness at home. Patient was unable to get off her toilet while at home yesterday. She was able to contact a neighbor who was able to help her, she was then brought to the hospital for further evaluation. She complains of back pain with radiation of the pain posterior aspect of her bilateral legs. She states her pain and weakness have fluctuated in intensity over the past month or so. She was seen at her PCP office and given trigger point injection as well as oral steroids with minimal improvement. On presentation vitals stable, WBC 10.9k, urine positive for LE, bacteria, XR head, cervical spine CXR no acute process. Review of Systems All systems: negative Constitutional: Reports malaise, Reports weakness, Denies chills, Denies fever Eyes: denies blurred vision, denies pain Ears, nose, mouth and throat: Denies headache, Denies sore throat Cardiovascular: Denies chest pain, Denies shortness of breath Respiratory: Denies cough Gastrointestinal: Denies abdominal pain, Denies diarrhea, Denies nausea, Denies vomiting Genitourinary: Denies dysuria, Denies hematuria Musculoskeletal: Reports low back pain, Reports muscle weakness, Denies myalgias Integumentary: Denies pruritus, Denies rash Neurological: Denies numbness, Denies weakness Psychiatric: Denies anxiety, Denies depression Endocrine: Denies fatigue, Denies weight change Past Medical History Past Medical History: Atrial Fibrillation, Hyperlipidemia, Hypertension, Thyroid Disorder Additional Past Medical History / Comment(s): irregular stools,contipation,abdominal pain and incontinent of stools when sneezing or coughing,doesn't feel like emptying bowel, hx GOUT,ANEMIA History of Any Multi-Drug Resistant Organisms: None Reported Past Surgical History: Section, Coronary Bypass/CABG, Heart Catheterization, Heart Catheterization With Stent, Hysterectomy Additional Past Surgical History / Comment(s): TRIPLE BYPASS. LEFT KNEE TOTAL X2. COLONOSCOPY Past Anesthesia/Blood Transfusion Reactions: No Reported Reaction Additional Past Anesthesia/Blood Transfusion Reaction / Comment(s): SLOW TO WAK E. no problems with prior blood transfusions Date of Last Stent Placement:: 1995 Past Psychological History: No Psychological Hx Reported Smoking Status: Never smoker Past Alcohol Use History: None Reported Past Drug Use History: None Reported - Past Family History Mother Family Medical History: No Reported History Father Family Medical History: Cancer Sister(s) Family Medical History: Cancer Additional Family Medical History / Comment(s): ovarian CA Medications and Allergies Home Medications Medication Instructions Recorded Confirmed Type Metoprolol Tartrate [Lopressor] 50 mg PO BID 03/08/18 01/19/22 History Warfarin [Coumadin] 2.5 mg PO SUTUTHSA@2100 08/05/18 01/19/22 History allopurinoL [Zyloprim] 300 mg PO DAILY 07/30/19 01/19/22 History Diltiazem HCl [Cardizem CD] 120 mg PO DAILY 01/19/22 01/19/22 History Isosorbide Mononitrate ER [Imdur] 30 mg PO DAILY 01/19/22 01/19/22 History Levothyroxine Sodium [Synthroid] 100 mcg PO DAILY 01/19/22 01/19/22 History Lovastatin [Mevacor] 40 mg PO DAILY 01/19/22 01/19/22 History Nitroglycerin Sl Tabs [Nitrostat] 0.4 mg SL Q5M PRN 01/19/22 01/19/22 History Oxybutynin Chloride [Ditropan] 5 mg PO DAILY 01/19/22 01/19/22 History Pantoprazole [Protonix] 40 mg PO DAILY 01/19/22 01/19/22 History Terazosin [Hytrin] 2 mg PO HS 01/19/22 01/19/22 History Warfarin [Coumadin] 5 mg PO MOWEFR@209901/19/22 01/19/22 History Allergies Allergy/AdvReac Type Severity Reaction Status Date / Time adhesive tape Allergy Rash/Hives,paper Verified 01/19/22 12:56 tape is ok nickel Allergy REACTED TO Verified 01/19/22 12:56 METAL, KNEE HAD TO REPLACED. codeine AdvReac Hallucinati Verified 01/19/22 12:56 ons Physical Exam Vitals: Vital Signs Temp Pulse Resp BP Pulse Ox 01/20/22 13:54 97.8 F 82 20 112/67 96 01/20/22 07:00 97.6 F 100 14 135/68 97 01/20/22 01:51 97.5 F L 139 H 17 121/89 98 Intake and Output 01/20/22 01/20/22 01/21/22 14:59 22:59 06:59 Intake Total 300 Balance 300 Intake: Intake, IV Titration 100 Amount cefTRIAXone 1 gm In 100 Sodium Chloride 0.9% 50 ml @ 100 mls/hr IVPB Q24HR [facility] Rx#:[id number] Oral 200 General: well nourished, well developed, NAD. Vitals reviewed Eyes: PERRL, EOMI, conjunctiva normal HENT: normocephalic, mucus membranes moist Neck: supple, no JVD Lungs: normal respiratory effort, no wheezes or rales CV: Irregular rhythm, no murmur. Peripheral pulses 2+ Abdomen: soft, nondistended, no organomegaly Lymph: no cervical or axillary LAD Skin: warm and dry. Neuro: A&Ox3, normal mood and affect Results CBC & Chem 7: 01/19/22 12:05 01/19/22 12:46 Labs: Abnormal Lab Results - Last 24 Hours (Table) 01/20/22 Range/Units 05:40 PT 20.5 H (9.0-12.0) sec INR 2.0 H (<1.2) Microbiology - Last 24 Hours (Table) 01/19/22 14:01 Urine Culture - Final Urine,Voided Assessment and Plan Plan: 1. Lumbar back pain and lower extremity weakness. Consult to Ortho and Neurolo gy. MRI lumbar spine ordered 2. Acute cystitis. Start rocephin 3. Persistent A fib. Continue coumadin, cardizem
[2022-01-21] MEDS: allopurinoL 300 MG TAB PO SCH (08:35)
[2022-01-21] MEDS: ISOSORBIDE MONONITRATE ER 30 MG TAB.ER.24H PO SCH (08:35)
[2022-01-21] MEDS: ATORVASTATIN 10 MG TAB PO SCH (08:35)
[2022-01-21] MEDS: METOPROLOL TARTRATE 50 MG TAB PO SCH (08:35)
[2022-01-21] MEDS: PANTOPRAZOLE 40 MG TABLET PO SCH (08:35)
[2022-01-21] MEDS: DILTIAZEM CD 120 MG CAP.ER.24H PO SCH (08:36)
[2022-01-21] MEDS ORDERED: DEXAMETHASONE SOD PHOSPHATE 10 MG/ML 1 ML VIAL IVP STA (09:36)
--- NOTE | 2022-01-21 09:36 | P.PN ---
Subjective Progress Note Date: 01/21/22 Principal diagnosis: Low back pain Patient seen and examined today. Patient was sitting up in chair with legs reclined. She states that she does have some pain in the bilateral buttock region that radiates down the back of both ofher legs. Patient reported numbness and tingling into her bilateral hands. She states that she occasionally gets neck pain on the left side that causes her neck to becomes stiff and she has to wait to allow it to rest before she is able to move her neck again. Patient reports that she was ambulatory with walker within her room and tolerated that well, but she is not comfortable doing this without someone present. Patient currently denies any fever/chills, bowel/bladder incontinence or retention, or chest pain. Objective - Vital Signs Vital signs: Vital Signs Temp 97.6 F 01/21/22 01:22 Pulse 136 H 01/21/22 01:22 Resp 16 01/21/22 01:22 BP 108/73 01/21/22 01:22 Pulse Ox 96 01/21/22 01:22 Intake & Output 01/20/22 01/21/22 01/21/22 18:59 06:59 18:59 Intake Total 300 Balance 300 Intake: Intake, IV Titration 100 Amount cefTRIAXone 1 gm In 100 Sodium Chloride 0.9% 50 ml @ 100 mls/hr IVPB Q24HR [facility] Rx#:[id number] Oral 200 Other: # Voids 1 - Exam Physical Examination General: The patient is awake and alert, in no acute distress Skin: Skin is warm and dry with no obvious rashes or lesions. Hairy patches absent, no dorsal skin dimples, and no cafe au lait spots. No surgical incisions. Eye: Pupils are equal, round and reactive to light, extra-ocular movements are intact; there is normal conjunctiva bilaterally. Neck: The neck is supple, there is no tenderness and ROM intact. Cardiovascular: There is a regular rate and rhythm. No murmur, rub or gallop is appreciated. Respiratory: Lungs are clear to auscultation, respirations are non-labored, breath sounds are equal. Gastrointestinal: Soft, non-distended, non-tender abdomen. Back: There is no tenderness to palpation in the midline, paralumbar, parathoracic, or cervical region. There is no obvious deformity. Musculoskeletal: ROM limited secondary to pain. Shoulder abduction 4/5, elbow flexors 4/5, wrist dorsiflexors 4/5. finger abductor 4/5, infection prevention specialist 4/5, hip flexor 4/5, knee flexor 4/5, ankle dorsiflexor 5/5, ankle plantarflexion 5/5 and extensor hallucis 5/5. Neurological: CN 2-12 intact. There are no obvious motor or sensory deficits. Movement and coordination equal and intact. Sensory exam to light touch intact C5-T1 and intact from L2-S1. Reflexes 2/4 in bilateral upper and lower extremities. Negative Hoffmans, babinski, and clonus signs. Psychiatric: Cooperative, appropriate mood & affect, normal judgment. - Labs CBC & Chem 7: 01/19/22 12:05 01/19/22 12:46 Labs: Abnormal Lab Results - Last 24 Hours (Table) 01/20/22 01/21/22 Range/Units 05:40 07:00 PT 23.6 H (9.0-12.0) sec INR 2.4 H (<1.2) Vitamin B12 973.0 H (200.0-944.0) pg/mL Microbiology - Last 24 Hours (Table) 01/19/22 14:01 Urine Culture - Final Urine,Voided Assessment and Plan Assessment: Low back pain Lumbar radiculopathy, bilateral lower extremities Bilateral lower extremity weakness Paresthesias bilateral hands Multilevel cervical spondylosis Plan: I reviewed and discussed the case with my attending Dr. Ibarra, he has had a chance to review the chart and films and we have decided to proceed as outlined below. Plan: -Appreciate consultants and team management. -Activity: Ambulate QID, OOB all meals, up and about, Use walker or cane if needed for stability. -Daily PT/OT, increase ambulation strength and balance. -Pain control: tylenol, antiinflammatories as needed. One time-dose of decadron. -Meds: reviewed -GI ppx: senna, protonix -DVT PPX: coumadin -Dispo: further recommedations to follow I have personally seen and examined the patient, performed the documentation and the assessment and plan as written. Number of minutes spent on the visit: [20 ]. Time with Patient: Less than 30
[2022-01-21 09:38] VITALS: BP 127/88; PULSE 62; TEMP 97.4
[2022-01-21] MEDS ORDERED: SENNOSIDES-DOCUSATE SODIUM 1 EACH TAB PO SCH (11:30)
[2022-01-21 11:39] LABS: Basophils # (A) 0.02 X 10*3/uL (0.00-0.10); Basophils % (A) 0.3 %; Eosinophils % (A) 1.3 %; HCT 44.4 % (37.2-46.3); Immature Grans, Automated 0.6 %; Lymphocytes # (A) 1.23 X 10*3/uL (0.90-5.00); Lymphocytes % (A) 15.6 %; MCH 31.2 pg (27.0-32.0); MCHC 31.5 g/dL (32.0-37.0); MCV 98.9 fL (80.0-97.0); Mean Platelet Volume 9.9 fL (9.5-12.2); Monocytes % (A) 7.6 %; NRBC Per 100 WBC 0 /100 WBCS (0.0-0.0); Neutrophils # (A) 5.87 X 10*3/uL (1.80-7.70); Neutrophils % (A) 74.6 %; Platelet Count 154 X 10*3/uL (140-440); RBC 4.49 X 10*6/uL (4.10-5.20); RDW 15.9 % (11.5-14.5); WBC 7.87 X 10*3/uL (4.50-10.00)
[2022-01-21 12:02] LABS: African American GFR (CKD) 61.2 (60.0-200.0); Anion Gap 9.7 mmol/L (10.00-18.00); BUN/Creat Ratio 27.2 Ratio (12.00-20.00); Blood Urea Nitrogen 27.2 mg/dL (9.0-27.0); Calcium 9.5 mg/dL (8.7-10.3); Carbon Dioxide 24.3 mmol/L (20.0-27.5); Non-African American GFR(CKD) 52.8 (60.0-200.0); Potassium 4.3 mmol/L (3.5-5.5)
--- NOTE | 2022-01-21 13:14 | P.DS ---
Providers Date of admission: 01/19/22 15:02 Expected date of discharge: 01/21/22 Attending physician: Wilbert Mei MD Consults: 01/20/22 10:31 Consult Physician Routine Consulting Provider: Mo Rivera Consult Reason/Comments: lower extremities numbness, weakness, recent fall Do you want consulting provider notified?: Yes 01/20/22 13:02 Consult Physician Urgent Consulting Provider: Brent Ibarra Consult Reason/Comments: back pain/lower ext weakness Do you want consulting provider notified?: Yes Primary care physician: Brittany Mike Hospital Course: Final Diagnoses: Lumbar back pain and bilateral lower extremity weakness. Multilevel cervical spondylosis ,Lumbar radiculopathy, bilateral hand paresthesia. Acute cystitis. Urine culture negative Persistent chronic A fib. Anticoagulated on Coumadin Hypothyroidism Hypertension Hospital course:Denise Godinez is an 81 yo F with PMH of atrial fibrillation, HTN, hypothyroidism who was brought to the ED after experiencing profound weakness at home. Patient was unable to get off her toilet while at home yesterday. She was able to contact a neighbor who was able to help her, she was then brought to the hospital for further evaluation. She complains of back pain with radiation of the pain posterior aspect of her bilateral legs. She states her pain and weakness have fluctuated in intensity over the past month or so. She was seen at her PCP office and given trigger point injection as well as oral steroids with minimal improvement. On presentation vitals stable, WBC 10.9k, urine positive for LE, bacteria, XR head, cervical spine CXR no acute process. Evaluated by orthopedic surgery and neurology. MR lumbar spine completed reported minimal biconcave deformity of the lumbar vertebral bodies consistent with mild degree of osteomalacia, no spinal stenosis, no acute bony abnormality, no evidence of any significant lumbar disc herniation. Orthopedic surgery recommending conservative management, pain management with Tylenol, anti- inflammatories . Senokot S added to med regimine for constipation .Urine culture reporting greater than 100,000 apparent skin and/or genital jaspal. Completed IV antibiotic therapy of ceftriaxone. Neurology recommending EMG with NCS of bilateral lower as outpatient. Patient will be discharged to [facility] subacute rehab. today in a stable condition with guarded prognosis pending final DC recommendations/clearance from neurology. The impression and plan of care has been dictated as directed. Dr.: I performed a history and examination of this patient, discussed the same with the dictator. I agree with the dictator's note ,documented as a scribe. Any additional findings or plans will be noted. Patient Condition at Discharge: Stable Plan - Discharge Summary New Discharge Prescriptions: New Sennosides-Docusate Sodium [Senokot-S] 2 tab PO BID #60 tablet No Action Metoprolol Tartrate [Lopressor] 50 mg PO BID Warfarin [Coumadin] 2.5 mg PO SUTUTHSA@2100 allopurinoL [Zyloprim] 300 mg PO DAILY Warfarin [Coumadin] 5 mg PO MOWEFR@2100 Terazosin [Hytrin] 2 mg PO HS Pantoprazole [Protonix] 40 mg PO DAILY Oxybutynin Chloride [Ditropan] 5 mg PO DAILY Levothyroxine Sodium [Synthroid] 100 mcg PO DAILY Lovastatin [Mevacor] 40 mg PO DAILY Isosorbide Mononitrate ER [Imdur] 30 mg PO DAILY Diltiazem HCl [Cardizem CD] 120 mg PO DAILY Nitroglycerin Sl Tabs [Nitrostat] 0.4 mg SL Q5M PRN PRN Reason: Chest Pain Discharge Medication List Metoprolol Tartrate [Lopressor] 50 mg PO BID 03/08/18 [History] Warfarin [Coumadin] 2.5 mg PO SUTUTHSA@2100 08/05/18 [History] allopurinoL [Zyloprim] 300 mg PO DAILY 07/30/19 [History] Diltiazem HCl [Cardizem CD] 120 mg PO DAILY 01/19/22 [History] Isosorbide Mononitrate ER [Imdur] 30 mg PO DAILY 01/19/22 [History] Levothyroxine Sodium [Synthroid] 100 mcg PO DAILY 01/19/22 [History] Lovastatin [Mevacor] 40 mg PO DAILY 01/19/22 [History] Nitroglycerin Sl Tabs [Nitrostat] 0.4 mg SL Q5M PRN 01/19/22 [History] Oxybutynin Chloride [Ditropan] 5 mg PO DAILY 01/19/22 [History] Pantoprazole [Protonix] 40 mg PO DAILY 01/19/22 [History] Terazosin [Hytrin] 2 mg PO HS 01/19/22 [History] Warfarin [Coumadin] 5 mg PO MOWEFR@2100 01/19/22 [History] Sennosides-Docusate Sodium [Senokot-S] 2 tab PO BID #60 tablet 01/21/22 [Rx] Follow up Appointment(s)/Referral(s): Corina Mo MD [REFERRING] - 1 Week (EMG with NCS of bilateral lower) Wilbert Mei MD [STAFF PHYSICIAN] - 1 Week (After DC from subacute rehab) Activity/Diet/Wound Care/Special Instructions: Darian latif,bmp in 3 days Discharge Disposition: TRANSFER TO SNF/ECF
--- NOTE | 2022-01-21 16:03 | P.PN ---
Subjective Progress Note Date: 01/21/22 The patient is seen at bedside and she feels she is doing better today compared to yesterday. Per the nurse she agrees and states she was walking with walker and was doing well. Again she stated her symptoms started about 3 weeks ago and prior to that denies upper respiratory infection or lower GI issue. She denies of any fever. She initially had posterior left lower back pain that radiated down then started having weakness in legs and then started having numbness of hands. Objective - Vital Signs Vital signs: Vital Signs Temp 97.4 F L 01/21/22 07:00 Pulse 62 01/21/22 07:00 Resp 16 01/21/22 07:00 BP 127/88 01/21/22 07:00 Pulse Ox 97 01/21/22 07:00 Intake & Output 01/20/22 01/21/22 01/21/22 18:59 06:59 18:59 Intake Total 300 Balance 300 Intake: Intake, IV Titration 100 Amount cefTRIAXone 1 gm In 100 Sodium Chloride 0.9% 50 ml @ 100 mls/hr IVPB Q24HR [facility] Rx#:[id number] Oral 200 Other: # Voids 1 - Exam GENERAL: The patient is lying in bed and is not in acute distress. NEUROLOGICAL: Higher mental function: The patient is awake, alert, oriented to self, place and time. Patient is following commands. No aphasia and no neglect. Cranial nerves: The pupils are round, equal and reactive to light and accommodation. Visual dior are full to confrontation throughout. Extraocular movement is intact no nystagmus is noted. Facial sensation is normal to touch throughout. The facial strength is normal throughout. Tongue is midline and moved [id number] without any difficulty. No dysarthria is noted. Shoulder shrug is normal bilaterally. Motor: Gait is deferred because of her weakness. The strength is bilateral proximal lower extremity is 4, knee extension is 5-. . Upper hand product specialist is 4+ 5- , bilateral arm extension is 5-. Otherwise 5 over 5 throughout. Normal tone and bulk. Cerebellum: Seems at times past pointing with finger to nose bilaterally. Sensation: Sensation is normal to touch throughout. Reflexes (right/left): 0-1 throughout. Plantars are mute bilaterally. WORK-UP: MRI lumbar spine with and without his reported as minimal biconcave deformity of the lumbar vertebral body consistent with some mild degree of osteomalacia. No spinal stenosis. No acute bony abnormality. No evidence of any significant lumbar disc herniation. Vitamin B12 is 973, serum folate is more than 20, TSH is 0.950. Hemoglobin A1c is 5.90. CK level is 40. - Labs CBC & Chem 7: 01/21/22 07:00 01/21/22 07:00 Labs: Abnormal Lab Results - Last 24 Hours (Table) 01/20/22 01/21/22 01/21/22 Range/Units 05:40 07:00 07:00 MCV 98.9 H (80.0-97.0) fL MCHC 31.5 L (32.0-37.0) g/dL RDW 15.9 H (11.5-14.5) % Immature Gran # 0.05 H (0.00-0.04) X 10*3/uL PT 23.6 H (9.0-12.0) sec INR 2.4 H (<1.2) Anion Gap (10.00-18.00) mmol/L BUN (9.0-27.0) mg/dL Est GFR (CKD-EPI)NonAf (60.0-200.0) BUN/Creatinine Ratio (12.00-20.00) Ratio Vitamin B12 973.0 H (200.0-944.0) pg/mL 01/21/22 Range/Units 07:00 MCV (80.0-97.0) fL MCHC (32.0-37.0) g/dL RDW (11.5-14.5) % Immature Gran # (0.00-0.04) X 10*3/uL PT (9.0-12.0) sec INR (<1.2) Anion Gap 9.70 L (10.00-18.00) mmol/L BUN 27.2 H (9.0-27.0) mg/dL Est GFR (CKD-EPI)NonAf 52.8 L (60.0-200.0) BUN/Creatinine Ratio 27.20 H (12.00-20.00) Ratio Vitamin B12 (200.0-944.0) pg/mL Microbiology - Last 24 Hours (Table) 01/19/22 14:01 Urine Culture - Final Urine,Voided Assessment and Plan Assessment: Posterior back pain with radiation to leg, with bilateral leg weakness and paresthesia of legs for past 3 weeks. Also paresthesia of hands. 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 MRI L-spine is unremarkable . Patient today felt she is doing better. Chronic left neck pain. Paresthesia of bilateral hand. Possible acute urinary tract infection Atrial fibrillation on Coumadin Hypothyroidism Hypertension and on presentation seems the normotensive Plan: I notified the patient that we'll like to get a verbal spinal fluid but seems she is on Coumadin and that needs to be on hold and if it's on hold there is a risk of strokes and clots versus starting IVIG as a prophylaxis for 3-5 days. Patient stated that she does not want the IVIG or getting cerebral spinal fluid were but rather she would like to go to rehab since she was getting better today. If she worsens down the line recommend consideration of MRI of cervical spine as well as cerebrospinal fluid. I also recommend EMG nerve conduction of the upper and lower extremity as an outpatient. Consulted Orthopedic surgery team. Every 4 hours neuro checks PT and OT are consulted Patient is currently on ceftriaxone for possible urinary tract infection by the primary team. We'll defer the rest of the medical management to primary team The patient is discussed with patient and her nurse. Otherwise no further neurological workup. Mo Rivera M.D. Neuro-hospitalist Time with Patient: Less than 30
== END 2022-01-21 14:42 ==
LOC: EC 10:41 → 6NMEDSUR 15:02
PROVIDERS: ADMIT Family Medicine; ATTEND Family Medicine
DX: M47.812 Spondylosis without myelopathy or radiculopathy, cervical region (principal); M54.16 Radiculopathy, lumbar region; M25.78 Osteophyte, vertebrae; I48.19 Other persistent atrial fibrillation; E03.9 Hypothyroidism, unspecified; Z20.822 Contact with and (suspected) exposure to COVID-19; R53.1 Weakness; I11.9 Hypertensive heart disease without heart failure; M16.0 Bilateral primary osteoarthritis of hip; E78.5 Hyperlipidemia, unspecified; N30.00 Acute cystitis without hematuria; R29.2 Abnormal reflex; K59.00 Constipation, unspecified; M10.9 Gout, unspecified; Z79.890 Hormone replacement therapy; Z79.01 Long term (current) use of anticoagulants; Z79.899 Other long term (current) drug therapy; Z91.048 Other nonmedicinal substance allergy status; Z88.5 Allergy status to narcotic agent; Z95.1 Presence of aortocoronary bypass graft; Z90.710 Acquired absence of both cervix and uterus; Z98.891 History of uterine scar from previous surgery; Z80.41 Family history of malignant neoplasm of ovary
CPT/HCPCS: 99285; 96365; 96366 ×2; 96375; 36415; 93005; 97530 ×2; 97162; 97535; 97166; 80048 ×2; 84443; 82607; 82550; 82746; 83605; 83735; 84484; 85025 ×2; 85610 ×3; 85730; 81001; 87086; 83036; 87635; 72170; 71045; 72125; 70450; 72158; G0378 ×3; J1100; J0696 ×2; A9585

== ENCOUNTER → 2022-04-15 | Outpatient (CLI) | payer MEDICARE ==
--- NOTE | 2022-04-20 07:27 | MR ---
EXAMINATION TYPE: MR lumbar spine wo con DATE OF EXAM: 04/15/2022 COMPARISON: 01/20/2022 HISTORY: Weakness of wade low extremities TECHNIQUE: Multiplanar, multisequence images of the lumbar spine were acquired without IV contrast. L1-L2: Mild acute compression fracture involving the superior endplate of L2. Loss of height is estim ated at less than 10%. No evidence of bony retropulsion. Normal-appearing disc. No herniation, protru phong or central stenosis. Foramina are patent bilaterally. L2-L3: Normal disc appearance without desiccation. No herniation, protrusion or disc bulging. No ca nal stenosis is present. Foramina are patent bilaterally. L3-L4: Mild decreased signal ossified compatible degenerative disc disease. Mild posterior disc bulge . No evidence for disc herniation protrusion or central stenosis. Foramina are patent. Mild facet benigno nt arthropathy. L4-L5: Mild decreased signal ossified compatible degenerative disc disease. Mild posterior disc bulge . No evidence for disc herniation protrusion or central stenosis. Foramina are patent. Mild facet benigno nt arthropathy. L5-S1: Normal disc appearance without desiccation. No herniation, protrusion or disc bulging. No ca nal stenosis is present. Foramina are patent bilaterally. Lumbar segments are intact. No paraspinal masses are identified. Conus medullaris has a normal appe arance. IMPRESSION: 1. Mild acute superior endplate compression fracture of L1. No bony retropulsion or instability. 2. Mild degenerative disc disease and disc bulging as outlined above.
== END | disposition home or self-care (01) ==
LOC: RADMRIMAIN 12:23
PROVIDERS: ATTEND Psychiatry & Neurology Neurology
DX: M51.36 Other intervertebral disc degeneration, lumbar region (principal); M48.56XA Collapsed vertebra, not elsewhere classified, lumbar region, initial encounter for fracture
CPT/HCPCS: 72148

== ENCOUNTER → 2022-05-19 | Outpatient (CLI) | payer MEDICARE ==
[2022-05-19 15:36] LABS: African American GFR (CKD) >90 (>60 ml/min/1.73 sqM); Blood Urea Nitrogen 13 mg/dL (7-17); Non-African American GFR(CKD) 82 (>60 ml/min/1.73 sqM)
--- NOTE | 2022-05-19 19:03 | CT ---
EXAMINATION TYPE: CT chest w con CT DLP: 285.7 mGycm, Automated exposure control for dose reduction was used. DATE OF EXAM: 05/19/2022 4:16 PM COMPARISON: 02/02/2022 CLINICAL INDICATION:Female, 81 years old with history of R22.2, lump, mass TECHNIQUE: Multiple axial images were obtained through the chest following the administration of 100 cc of Isovue 300. FINDINGS: LUNGS/ PLEURA: No evidence of focal consolidation, pneumothorax or pleural effusion. No suspicious pu lmonary nodules identified. There is streaky atelectasis/scarring most pronounced in the lung bases. AIRWAY: Patent and unremarkable.. HEART: The heart is mildly enlarged for size. There is coronary artery atherosclerosis and post CABG changes. MEDIASTINUM: No gross evidence of adenopathy. VASCULATURE: No aortic aneurysm. Scattered atherosclerosis of the arterial vasculature. MUSCULOSKELETAL: No acute osseous abnormalities. Sternotomy wires are present. SOFT TISSUES/LYMPH NODES: No evidence of lump/mass within the soft tissues. LOWER NECK: No significant findings. UPPER ABDOMEN: Diffuse low-attenuation to the parenchyma. IMPRESSION: 1. No evidence for soft tissue lump or mass 2. Hepatic steatosis. 3. Cardiomegaly with post CABG changes.
== END | disposition home or self-care (01) ==
LOC: RADCTMAIN 14:58
PROVIDERS: ATTEND Family Medicine
DX: K76.0 Fatty (change of) liver, not elsewhere classified (principal); I25.10 Atherosclerotic heart disease of native coronary artery without angina pectoris
CPT/HCPCS: 82565; 84520; 71260; 36415; Q9967

== ENCOUNTER → 2022-10-14 | Outpatient (CLI) | payer MEDICARE ==
--- NOTE | 2022-10-15 18:45 | MM ---
Reason for Exam: Screening (asymptomatic). Last mammogram was performed 1 year(s) and 3 month(s) ago. Patient History: Menarche at age 16. First Full-Term at age 18. Left ovary removed at age 29. Right ovary removed at age 29. Hysterectomy at age 29. Postmenopausal. Estrogen for 6 months starting at age 29. Hormonal Contraceptives, starting at age 20 for 3 years. Paternal cousin had breast cancer, age 45. Paternal aunt had breast cancer, age 60. Risk Values: Jihan 5 year model risk: 1.1%. NCI Lifetime model risk: 1.5%. Prior Study Comparison: 03/07/2018 Bilateral Screening Mammogram, [facility]. 03/17/2019 Bilateral Screening Mammogram, [facility]. 07/10/2021 Bilateral Screening Mammogram, [facility]. Tissue Density: There are scattered fibroglandular densities. Findings: Analyzed By CAD. Benign bilateral vascular calcifications are redemonstrated. There is no suspicious group of microcalcifications or new suspicious mass in either breast. Overall Assessment: Benign, BI-RAD 2 Management: Screening Mammogram of both breasts in 1 year. 1. Patient should continue monthly self breast exams. 2. A clinical breast exam by your physician is recommended on an annual basis. 3. This exam should not preclude additional follow-up of suspicious palpable abnormalities. Electronically signed and approved by: Lorna Durham M.D. Radiologist
== END | disposition home or self-care (01) ==
LOC: RADMAMWWP 14:43
PROVIDERS: ATTEND Family Medicine
DX: Z12.31 Encounter for screening mammogram for malignant neoplasm of breast (principal); Z78.0 Asymptomatic menopausal state; Z80.3 Family history of malignant neoplasm of breast; Z90.721 Acquired absence of ovaries, unilateral
CPT/HCPCS: 77063; 77067

== ENCOUNTER 2022-12-01 02:02 | Inpatient (IN) | payer MEDICARE ==
[2022-12-01] MEDS ORDERED: MAG HYDROX/AL HYDROX/SIMETH 30 ML, HYOSCYAMINE ELIXIR 10 ML, LIDOCAINE VISCOUS 2% 10 ML PO STA ×3 (02:29)
[2022-12-01] MEDS ORDERED: ONDANSETRON 4 MG/2 ML VIAL IVP STA (02:29)
[2022-12-01] MEDS ORDERED: PANTOPRAZOLE 40 MG/10 ML VIAL IVP STA (02:29)
[2022-12-01 02:38] LABS: Basophils % (A) 0 %; Eosinophils # (A) 0.1 k/uL (0-0.7); Eosinophils % (A) 0 %; HCT 42.2 % (34.0-46.0); HGB 13.8 gm/dL (11.4-16.0); Lymphocytes # (A) 0.6 k/uL (1.0-4.8); Lymphocytes % (A) 4 %; MCH 31.4 pg (25.0-35.0); MCHC 32.6 g/dL (31.0-37.0); MCV 96.1 fL (80.0-100.0); Mean Platelet Volume 7.6; Monocytes # (A) 0.5 k/uL (0-1.0); Monocytes % (A) 4 %; Neutrophils # (A) 12.8 k/uL (1.3-7.7); Neutrophils % (A) 91 %; Platelet Count 148 k/uL (150-450); RBC 4.39 m/uL (3.80-5.40); RDW 14.7 % (11.5-15.5)
[2022-12-01 02:42] LABS: ALT 45 U/L (4-34); AST 48 U/L (14-36); African American GFR (CKD) >90 (>60 ml/min/1.73 sqM); Albumin 4.8 g/dL (3.5-5.0); Alkaline Phosphatase 127 U/L (38-126); Amylase 65 U/L (30-110); Anion Gap 12 mmol/L; Blood Urea Nitrogen 15 mg/dL (7-17); Calcium 9.6 mg/dL (8.4-10.2); Carbon Dioxide 27 mmol/L (22-30); Chloride 101 mmol/L (98-107); Glucose 163 mg/dL (74-99); Lipase 50 U/L (23-300); Non-African American GFR(CKD) 84 (>60 ml/min/1.73 sqM); Potassium 3.4 mmol/L (3.5-5.1); Sodium 140 mmol/L (137-145); Total Bilirubin 1.1 mg/dL (0.2-1.3); Total Protein 7.8 g/dL (6.3-8.2)
[2022-12-01] MEDS ORDERED: HYDROmorphone 0.5 MG/0.5 ML SYRINGE IVP STA (02:46)
[2022-12-01] MEDS ORDERED: SODIUM CHLORIDE 0.9% 500 ML 500 ML IV ONE (02:48)
--- NOTE | 2022-12-01 03:15 | ED ---
Abdominal Pain HPI - General Chief Complaint: Abdominal Pain Stated Complaint: chest pain Time Seen by Provider: 12/01/22 02:17 Source: patient, EMS, RN notes reviewed Mode of arrival: EMS Limitations: no limitations - History of Present Illness Initial Comments: 81-year-old female presents emergency Department via EMS with chief complaint of abdominal pain. Patient states started earlier tonight in epigastric region. Patient states she is vomiting states is black emesis. Patient states she is on Coumadin for atrial fibrillation. Patient states she has no history of peptic ulcer disease. Patient denies chest pain she states her abdominal pain does radiate to her back. She has no dysuria no hematuria no significant change in bowel habits. - Related Data Home Medications Medication Instructions Recorded Confirmed Warfarin [Coumadin] 2.5 mg PO SUTUTHSA@1700 08/05/18 02/02/22 allopurinoL [Zyloprim] 300 mg PO DAILY@0800 07/30/02/02/22 Isosorbide Mononitrate ER [Imdur] 30 mg PO DAILY@0800 01/19/22 02/02/22 Levothyroxine Sodium [Synthroid] 100 mcg PO DAILY@0600 01/19/22 02/02/22 Lovastatin [Mevacor] 40 mg PO HS 01/19/22 02/02/22 Nitroglycerin Sl Tabs [Nitrostat] 0.4 mg SL Q5M PRN 01/19/22 02/02/22 Pantoprazole [Protonix] 40 mg PO DAILY@0600 01/19/22 02/02/22 Terazosin [Hytrin] 2 mg PO HS 01/19/22 02/02/22 Warfarin [Coumadin] 5 mg PO MOWEFR@1700 01/19/22 02/02/22 Ensure Enlive 120 ml PO BID@0800,1700 02/02/22 02/02/22 Magnesium Hydroxide [Milk of 7,200 mg PO Q48H PRN 02/02/22 02/02/22 Magnesia Concentrate] Multivitamins, Thera [Multivitamin 1 tab PO HS@1700 02/02/22 02/02/22 (formulary)] Na Phos,M-B/Na Phos,Di-Ba [Fleet 133 ml RECTAL DAILY PRN 02/02/22 02/02/22 Adult] Oxybutynin Xl [Ditropan XL] 5 mg PO DAILY@0800 02/02/22 02/02/22 Sennosides-Docusate Sodium 2 tab PO BID@0800,1700 02/02/22 02/02/22 [Senokot-S] bisacodyL [Dulcolax] 10 mg RECTAL DAILY PRN 02/02/22 02/02/22 Previous Rx's Medication Instructions Recorded Ascorbic Acid [Vitamin C] 500 mg PO BID tab 02/10/22 Cholecalciferol [Vitamin D3 (25 50 mcg PO DAILY tablet 02/10/22 Mcg = 1000 Iu)] Digoxin [Lanoxin] 125 mcg PO Q48H #15 tab 02/10/22 Diltiazem Cd [Cardizem CD] 180 mg PO DAILY #30 cap 02/10/22 Metoprolol Tartrate 75 mg PO BID #180 tab 02/10/22 Pregabalin [Lyrica] 75 mg PO BID #60 cap 02/10/22 Zinc Sulfate [Orazinc] 220 mg PO DAILY #30 capsule 02/10/22 predniSONE 10 mg PO DIRECTED #18 tab 02/10/22 Allergies Allergy/AdvReac Type Severity Reaction Status Date / Time adhesive tape Allergy Rash/Hives,paper Verified 12/01/22 02:03 tape is ok nickel Allergy REACTED TO Verified 12/01/22 02:03 METAL, KNEE HAD TO REPLACED. codeine AdvReac Hallucinati Verified 12/01/22 02:03 ons Review of Systems ROS Statement: Those systems with pertinent positive or pertinent negative responses have been documented in the HPI. ROS Other: All systems not noted in ROS Statement are negative. Past Medical History Past Medical History: Atrial Fibrillation, Hyperlipidemia, Hypertension, Thyroid Disorder Additional Past Medical History / Comment(s): irregular stools,contipation,abdominal pain and incontinent of stools when sneezing or coughing,doesn't feel like emptying bowel, hx GOUT,ANEMIA History of Any Multi-Drug Resistant Organisms: None Reported Past Surgical History: Section, Coronary Bypass/CABG, Heart Catheterization, Heart Catheterization With Stent, Hysterectomy Additional Past Surgical History / Comment(s): TRIPLE BYPASS. LEFT KNEE TOTAL X2. COLONOSCOPY Past Anesthesia/Blood Transfusion Reactions: No Reported Reaction Additional Past Anesthesia/Blood Transfusion Reaction / Comment(s): SLOW TO WAKE. no problems with prior blood transfusions Date of Last Stent Placement:: 1995 Past Psychological History: No Psychological Hx Reported Smoking Status: Never smoker Past Alcohol Use History: None Reported Past Drug Use History: None Reported - Past Family History Mother Family Medical History: No Reported History Father Family Medical History: Cancer Sister(s) Family Medical History: Cancer Additional Family Medical History / Comment(s): ovarian CA General Exam Limitations: no limitations General appearance: alert, in no apparent distress Head exam: Present: atraumatic, normocephalic, normal inspection Eye exam: Present: normal appearance, PERRL, EOMI. Absent: scleral icterus, conjunctival injection, periorbital swelling ENT exam: Present: normal exam, mucous membranes moist Neck exam: Present: normal inspection, full ROM. Absent: tenderness, meningismus, lymphadenopathy Respiratory exam: Present: normal lung sounds bilaterally. Absent: respiratory distress, wheezes, rales, rhonchi, stridor Cardiovascular Exam: Present: tachycardia, irregular rhythm, normal heart sounds. Absent: normal rhythm, systolic murmur, diastolic murmur, rubs, gallop, clicks GI/Abdominal exam: Present: soft, tenderness, normal bowel sounds. Absent: dist ended, guarding, rebound, rigid Neurological exam: Present: alert Skin exam: Present: warm, dry, intact, normal color. Absent: rash Course Vital Signs 12/01/22 12/01/22 02:04 02:59 Temperature 98.2 F Pulse Rate 117 H 115 H Respiratory 18 18 Rate Blood Pressure 169/96 174/98 O2 Sat by Pulse 98 96 Oximetry Medical Decision Making - Medical Decision Making Was pt. sent in by a medical professional or institution (, PA, LIVERY CAR DRIVER, urgent care, hospital, or [facility]...) When possible be specific @ -No Did you speak to anyone other than the patient for history (EMS, parent, family, police, friend...)? What history was obtained from this source @ -EMS prehospital complaint, care, medications Did you review nursing and triage notes (agree or disagree)? Why? @ -I reviewed and agree with nursing and triage notes Were old charts reviewed (outside hosp., previous admission, EMS record, old EKG, old radiological studies, urgent care reports/EKG's, [facility] records)? Report findings @ -No old charts were reviewed Differential Diagnosis (chest pain, altered mental status, abdominal pain women, abdominal pain men, vaginal bleeding, weakness, fever, dyspnea, syncope, headache, dizziness, GI bleed, back pain, seizure, CVA, palpatations, mental health)? @ -Gastritis, peptic ulcer disease, cholelithiasis, cholecystitis, colitis, this this is not all inclusive EKG interpreted by me (3pts min.). @ -As above X-rays interpreted by me (1pt min.). @ -None done CT interpreted by me (1pt min.). @ -CT of abdomen pelvis shows evidence of cholecystitis, possible new L2 compression fracture U/S interpreted by me (1pt. min.). @ -None done What testing was considered but not performed or refused? (CT, X-rays, U/S, labs)? Why? @ -None What meds were considered but not given or refused? Why? @ -None Did you discuss the management of the patient with other professionals (professionals i.e. , PA, LIVERY CAR DRIVER, lab, RT, psych nurse, social media manager, chili powder mixer, teacher, civil preparedness training officer, piano case and bench assembler)? Give summary @ -Dr. Zuniga and Dr. ramos a she'll be admitted on a abx, surgery evalua tion possible EGD possible surgery. Was smoking cessation discussed for >3mins.? @ -No Was critical care preformed (if so, how long)? @ -No Were there social determinants of health that impacted care today? How? (Homelessness, low income, unemployed, alcoholism, drug addiction, transportation, low edu. Level, literacy, decrease access to med. care, residential, rehab)? @ -No Was there de-escalation of care discussed even if they declined (Discuss DNR or withdrawal of care, Hospice)? DNR status @ -No What co-morbidities impacted this encounter? (DM, HTN, Smoking, COPD, CAD, Cancer, CVA, ARF, Chemo, Hep., AIDS, mental health diagnosis, sleep apnea, morbid obesity)? @ -A. fib on Coumadin Was patient admitted / discharged? Hospital course, mention meds given and route, prescriptions, significant lab abnormalities, going to OR and other pertinent info. @ -Admitted patient has evidence of cholecystitis, concerning for peptic ulcer disease, GI bleed patient will be admitted for EGD, surgery, IV antibiotics and further treatment and monitoring. Undiagnosed new problem with uncertain prognosis? @ -No Drug Therapy requiring intensive monitoring for toxicity (Heparin, Nitro, Insulin, Cardizem)? @ -No Were any procedures done? @ -No Diagnosis/symptom? @ -Cholecystitis Acute, or Chronic, or Acute on Chronic? @ -Acute Uncomplicated (without systemic symptoms) or Complicated (systemic symptoms)? @ -Uncomplicated Side effects of treatment? @ -No Exacerbation, Progression, or Severe Exacerbation? @ -No Poses a threat to life or bodily function? How? (Chest pain, [place], [place], pneumonia, PE, COPD, DKA, ARF, appy, cholecystitis, CVA, Diverticulitis, Homicidal, Suicidal, threat to staff... and all critical care pts) @ -Yes Diagnosis/symptom? @ -GI bleed Acute, or Chronic, or Acute on Chronic? @ -Acute Uncomplicated (without systemic symptoms) or Complicated (systemic symptoms)? @ -Comp. Side effects of treatment? @ -none Exacerbation, Progression, or Severe Exacerbation] @ -no Poses a threat to life or bodily function? @ -Yes - Lab Data Result diagrams: 12/01/22 02:18 12/01/22 02:18 Lab Results 12/01/22 12/01/22 12/01/22 Range/Units 02:18 02:18 02:18 WBC 14.0 H (3.8-10.6) k/uL RBC 4.39 (3.80-5.40) m/uL Hgb 13.8 (11.4-16.0) gm/dL Hct 42.2 (34.0-46.0) % MCV 96.1 (80.0-100.0) fL MCH 31.4 (25.0-35.0) pg MCHC 32.6 (31.0-37.0) g/dL RDW 14.7 (11.5-15.5) % Plt Count 148 L (150-450) k/uL MPV 7.6 Neutrophils % 91 % Lymphocytes % 4 % Monocytes % 4 % Eosinophils % 0 % Basophils % 0 % Neutrophils # 12.8 H (1.3-7.7) k/uL Lymphocytes # 0.6 L (1.0-4.8) k/uL Monocytes # 0.5 (0-1.0) k/uL Eosinophils # 0.1 (0-0.7) k/uL Basophils # 0.0 (0-0.2) k/uL PT 19.0 H (9.0-12.0) sec INR 1.9 H (<1.2) APTT 32.4 H (22.0-30.0) sec Sodium 140 (137-145) mmol/L Potassium 3.4 L (3.5-5.1) mmol/L Chloride 101 (98-107) mmol/L Carbon Dioxide 27 (22-30) mmol/L Anion Gap 12 mmol/L BUN 15 (7-17) mg/dL Creatinine 0.63 (0.52-1.04) mg/dL Est GFR (CKD-EPI)AfAm >90 (>60 ml/min/1.73 sqM) Est GFR (CKD-EPI)NonAf 84 (>60 ml/min/1.73 sqM) Glucose 163 H (74-99) mg/dL Plasma Lactic Acid Lloyd (0.7-2.0) mmol/L Calcium 9.6 (8.4-10.2) mg/dL Total Bilirubin 1.1 (0.2-1.3) mg/dL AST 48 H (14-36) U/L ALT 45 H (4-34) U/L Alkaline Phosphatase 127 H (38-126) U/L Troponin I (0.000-0.034) ng/mL Total Protein 7.8 (6.3-8.2) g/dL Albumin 4.8 (3.5-5.0) g/dL Amylase 65 (30-110) U/L Lipase 50 (23-300) U/L Blood Type Recheck Bld Type Recheck Status Spec Expiration Date 12/01/22 12/01/22 12/01/22 Range/Units 02:18 02:18 02:44 WBC (3.8-10.6) k/uL RBC (3.80-5.40) m/uL Hgb (11.4-16.0) gm/dL Hct (34.0-46.0) % MCV (80.0-100.0) fL MCH (25.0-35.0) pg MCHC (31.0-37.0) g/dL RDW (11.5-15.5) % Plt Count (150-450) k/uL MPV Neutrophils % % Lymphocytes % % Monocytes % % Eosinophils % % Basophils % % Neutrophils # (1.3-7.7) k/uL Lymphocytes # (1.0-4.8) k/uL Monocytes # (0-1.0) k/uL Eosinophils # (0-0.7) k/uL Basophils # (0-0.2) k/uL PT (9.0-12.0) sec INR (<1.2) APTT (22.0-30.0) sec Sodium (137-145) mmol/L Potassium (3.5-5.1) mmol/L Chloride (98-107) mmol/L Carbon Dioxide (22-30) mmol/L Anion Gap mmol/L BUN (7-17) mg/dL Creatinine (0.52-1.04) mg/dL Est GFR (CKD-EPI)AfAm (>60 ml/min/1.73 sqM) Est GFR (CKD-EPI)NonAf (>60 ml/min/1.73 sqM) Glucose (74-99) mg/dL Plasma Lactic Acid Lloyd 1.9 (0.7-2.0) mmol/L Calcium (8.4-10.2) mg/dL Total Bilirubin (0.2-1.3) mg/dL AST (14-36) U/L ALT (4-34) U/L Alkaline Phosphatase (38-126) U/L Troponin I <0.012 (0.000-0.034) ng/mL Total Protein (6.3-8.2) g/dL Albumin (3.5-5.0) g/dL Amylase (30-110) U/L Lipase (23-300) U/L Blood Type Recheck No Previous Record Bld Type Recheck Status CABO Indicated Spec Expiration Date 12/04/20222343 - EKG Data -: EKG Interpreted by Me EKG Comments: EKG performed at 2:06 A. fib with RVR rate of 112 QRS 78 QT/QTC 321/387 Disposition Clinical Impression: Atrial fibrillation, Cholecystitis, GI bleed Disposition: ADMITTED IP TO THIS [facility] Condition: Fair Referrals: Greg Mei MD [STAFF PHYSICIAN] - 1-2 days Time of Disposition: 03:50
[2022-12-01 03:17] LABS: INR 1.9 (<1.2); Partial Thromboplastin Time 32.4 sec (22.0-30.0)
--- NOTE | 2022-12-01 03:41 | CT ---
EXAMINATION TYPE: CT abdomen pelvis w con DATE OF EXAM: 12/01/2022 COMPARISON: 09/27/2019 HISTORY: ABD PAIN WITH VOMITING OF COFFEE GROUND EMESIS CT DLP: 859.8 mGycm Automated exposure control for dose reduction was used. CONTRAST: Performed with IV Contrast, patient injected with 100 mL of Isovue 300. Images obtained from the diaphragm to the floor the pelvis with the IV contrast. There is some patchy atelectasis at the posterior lung bases. Heart is enlarged. No pericardial effus ion. No pleural effusion. Gallbladder is dilated and measures 5 x 10 cm. Spleen is intact. Stomach is intact. There is no evide nce of pancreatic mass. Pancreas appears normal. There is minimal gallbladder wall thickening and flu id around the gallbladder. There is no adrenal mass. Kidneys show satisfactory contrast opacification. No hydronephrosis. Delaye d images show normal renal excretion. There is 2 cm cortical cyst lateral right kidney. There is 3.4 cm aneurysm of the mid abdominal aorta. No evidence of dissection. No evidence of a leak. No retroper itoneal adenopathy. The ureters are not dilated. Urinary bladder is dilated. No inguinal hernia. No free fluid in the pelvis. There are numerous sigmoid diverticula. No sign of d iverticulitis. There is no mesenteric edema. No ascites or free air. No sign of a bowel obstruction. The lumbar vertebra have normal alignment. There is 25% biconcave compression deformity of L2 vertebr al body. The bony pelvis is intact. The hip joints are intact. Urinary bladder measures 16.7 cm. Appendix not clearly seen. No sign of thickened appendix. IMPRESSION: Dilated gallbladder with mild wall thickening and fluid suggestive of acute cholecystitis and is a ch tamara compared to old exam. Dilated urinary bladder consistent with bladder outlet obstruction and is a change compared to the ol d exam. There is L2 compression fracture which is mostly new compared to old exam. There is a 3.4 cm abdomina l aortic aneurysm which is increased 3 mm compared to old exam. There is some atelectasis at the lung bases which is improved compared to old exam.
[2022-12-01] MEDS ORDERED: DILTIAZEM DRIP BOLUS FROM BAG 1 MG SOLN IV ONE (04:12)
[2022-12-01] MEDS ORDERED: NALOXONE 0.4 MG/ML 1 ML VIAL IV PRN ×2 (04:15→11:39)
[2022-12-01] MEDS ORDERED: ONDANSETRON 4 MG/2 ML VIAL IVP PRN ×3 (04:15→11:39)
[2022-12-01] MEDS ORDERED: DILTIAZEM 125 MG in SODIUM CHLORIDE 0.9% 100 ML IV SCH (04:15)
[2022-12-01] MEDS: PIPERACILLIN-TAZOBACTAM 3.375 GM in SODIUM CHLORIDE 0.9% 100 ML IVPB SCH ×3 (04:23→20:13)
[2022-12-01] MEDS: HYDROmorphone 0.5 MG/0.5 ML SYRINGE IVP PRN ×3 (04:44→20:14)
[2022-12-01] MEDS: SODIUM CHLORIDE 0.9% 1,000 ML IV SCH ×2 (05:10→20:15)
[2022-12-01] MEDS ORDERED: METOCLOPRAMIDE 5 MG/ML 2 ML VIAL IVP PRN (06:43)
[2022-12-01] MEDS ORDERED: METOPROLOL TARTRATE 25 MG TAB PO SCH (09:00)
[2022-12-01] MEDS: ATORVASTATIN 10 MG TAB PO SCH (09:20)
[2022-12-01] MEDS: PANTOPRAZOLE 40 MG/10 ML VIAL IV SCH ×2 (09:20→20:14)
[2022-12-01] MEDS: ISOSORBIDE MONONITRATE ER 30 MG TAB.ER.24H PO SCH (09:20)
[2022-12-01] MEDS: SUCRALFATE 1 GM TAB PO SCH ×4 (09:20→23:52)
[2022-12-01] MEDS: DILTIAZEM CD 120 MG CAP.ER.24H PO SCH (09:20)
[2022-12-01] MEDS ORDERED: BUPIVACAIN-EPI 0.25%-1:200,000 30 ML VIAL SQ ONE ×2 (09:58→11:00)
[2022-12-01] MEDS ORDERED: POTASSIUM CHLORIDE ER 20 MEQ TAB.ER PO STA (10:03)
--- NOTE | 2022-12-01 10:07 | P.GSCN ---
History of Present Illness Consult date: 12/01/22 History of present illness: CHIEF COMPLAINT: Abdominal pain HISTORY OF PRESENT ILLNESS: This 81-year-old female presented to Hospital complaints of right upper quadrant and epigastric abdominal pain that started last night. She did have episode of vomiting and describes the emesis as black. She is on Coumadin for her A. fib. She had a computed tomography scan of the abdomen and pelvis that did show evidence of a dilated gallbladder and mild thickening wall suggestive of acute cholecystitis. She did have evidence of A. fib RVR possibly related to sepsis from the cholecystitis. Cardiology is following. She's currently on a Cardizem drip. She did have evidence of leukocytosis and mildly elevated liver enzymes. She denies any fever chills or sweats. Past surgical history does include and hysterectomy. She does have a history of coronary disease with CABG and cardiac stent. Patient seen and examined with Dr. ramos PAST MEDICAL HISTORY: See below PAST SURGICAL HISTORY: See below MEDICATIONS: See below ALLERGIES: See below SOCIAL HISTORY: No illicit drug use. REVIEW OF SYSTEMS: CONSTITUTIONAL: Denies fever or chills. HEENT: Denies blurred vision, vision changes, or eye pain. Denies hemoptysis CARDIOVASCULAR: Denies chest pain or pressure. RESPIRATORY: No shortness of breath. GASTROINTESTINAL: See HPI for pertinent findings HEMATOLOGIC: Denies bleeding disorders. GENITOURINARY: Denies any blood in urine or increased urinary frequency. SKIN: Denies pruitis. Denies rash. PHYSICAL EXAM: VITAL SIGNS: Reviewed GENERAL: Well-developed in no acute distress. HEENT: No sclera icterus. Extraocular movements grossly intact. Moist buccal mucosa. Head is atraumatic, normocephalic. No nasal drainage. ABDOMEN: Soft. Nondistended. Epigastric and right upper quadrant tenderness NEUROLOGIC: Alert and oriented. Cranial nerves II through XII grossly intact. LABORATORY DATA: WBC is 14 Hgb 13.8 platelets 148 INR 1.9 Sodium is 140 potassium is 3.4 creatinine 0.63 AST 48 ALT 45 alk phos 127 Troponin less than 0.012 Lipase 50 IMAGING: Computed tomography scan abdomen and pelvis dilated gallbladder with mild wall thickening and fluids just of acute cholecystitis. Dilated urinary bladder consistent with bladder outlet obstruction. There is L2 compression fracture which is mostly compared to old exam. There is a 3.4 cm abdominal aortic aneurysm which is increased 3 mm compared to old exam. There is some atelectasis at the lung bases improved. ASSESSMENT: 1. Acute cholecystitis 2. Atrial fibrillation with rapid ventricular response. On coumadin at home PLAN: -Patient is scheduled for laparoscopic cholecystectomy today with Dr. ramos -Patient evaluated by cardiology and per cardiology patient is cleared for surgical intervention -Keep patient nothing by mouth -Continue antibiotics -Continue supportive care -Hold coumadin Physician Switchboard Wirer note has been reviewed by physician. Signing provider agrees with the documented findings, assessment, and plan of care. Past Medical History Past Medical History: Atrial Fibrillation, Hyperlipidemia, Hypertension, Thyroid Disorder Additional Past Medical History / Comment(s): irregular stools,contipation,abdominal pain and incontinent of stools when sneezing or coughing,doesn't feel like emptying bowel, hx GOUT,ANEMIA History of Any Multi-Drug Resistant Organisms: None Reported Past Surgical History: Section, Coronary Bypass/CABG, Heart Catheterization, Heart Catheterization With Stent, Hysterectomy Additional Past Surgical History / Comment(s): TRIPLE BYPASS. LEFT KNEE TOTAL X2. COLONOSCOPY Past Anesthesia/Blood Transfusion Reactions: No Reported Reaction Additional Past Anesthesia/Blood Transfusion Reaction / Comm: SLOW TO WAKE. no problems with prior blood transfusions Date of Last Stent Placement:: 1995 Past Psychological History: No Psychological Hx Reported Smoking Status: Never smoker Past Alcohol Use History: None Reported Past Drug Use History: None Reported - Past Family History Mother Family Medical History: No Reported History Father Family Medical History: Cancer Sister(s) Family Medical History: Cancer Additional Family Medical History / Comment(s): ovarian CA Medications and Allergies Home Medications Medication Instructions Recorded Confirmed Type allopurinoL [Zyloprim] 300 mg PO DAILY 07/30/19 12/01/22 History Isosorbide Mononitrate ER [Imdur] 30 mg PO DAILY 01/19/22 12/01/22 History Lovastatin [Mevacor] 40 mg PO DAILY 01/19/22 12/01/22 History Pantoprazole [Protonix] 40 mg PO DAILY 01/19/22 12/01/22 History Terazosin [Hytrin] 2 mg PO HS 01/19/22 12/01/22 History Warfarin [Coumadin] 5 mg PO HS 01/19/22 12/01/22 History Multivitamins, Thera [Multivitamin 1 tab PO DAILY 02/02/22 12/01/22 History (formulary)] Digoxin [Lanoxin] 125 mcg PO Q48H #15 tab 02/10/22 12/01/22 Rx Metoprolol Tartrate 75 mg PO BID #180 tab 02/10/22 12/01/22 Rx Zinc Sulfate [Orazinc] 220 mg PO DAILY #30 capsule 02/10/22 12/01/22 Rx Calcium Citrate/Vitamin D3 1 tab PO DAILY 12/01/22 12/01/22 History [Citracal + D Maximum Caplet] Folic Acid 0.8 mg PO DAILY 12/01/22 12/01/22 History Levothyroxine Sodium [Synthroid] 112 mcg PO DAILY 12/01/22 12/01/22 History dilTIAZem HCL [Cardizem CD] 120 mg PO DAILY 12/01/22 12/01/22 History Allergies Allergy/AdvReac Type Severity Reaction Status Date / Time adhesive tape Allergy Rash/Hives,paper Verified 12/01/22 08:18 tape is ok nickel Allergy REACTED TO Verified 12/01/22 08:18 METAL, KNEE HAD TO REPLACED. codeine AdvReac Hallucinati Verified 12/01/22 08:18 ons Surgical - Exam Vital Signs Temp Pulse Resp BP Pulse Ox 98.2 F 117 H 18 169/96 98 12/01/22 02:04 12/01/22 02:04 12/01/22 02:04 12/01/22 02:04 12/01/22 02:04 Results - Labs 12/01/22 02:18 12/01/22 02:18 Abnormal Lab Results - Last 24 Hours (Table) 12/01/22 12/01/22 12/01/22 Range/Units 02:18 02:18 02:18 WBC 14.0 H (3.8-10.6) k/uL Plt Count 148 L (150-450) k/uL Neutrophils # 12.8 H (1.3-7.7) k/uL Lymphocytes # 0.6 L (1.0-4.8) k/uL PT 19.0 H (9.0-12.0) sec INR 1.9 H (<1.2) APTT 32.4 H (22.0-30.0) sec Potassium 3.4 L (3.5-5.1) mmol/L Glucose 163 H (74-99) mg/dL AST 48 H (14-36) U/L ALT 45 H (4-34) U/L Alkaline Phosphatase 127 H (38-126) U/L Diabetes panel 12/01/22 Range/Units 02:18 Sodium 140 (137-145) mmol/L Potassium 3.4 L (3.5-5.1) mmol/L Chloride 101 (98-107) mmol/L Carbon Dioxide 27 (22-30) mmol/L BUN 15 (7-17) mg/dL Creatinine 0.63 (0.52-1.04) mg/dL Glucose 163 H (74-99) mg/dL Calcium 9.6 (8.4-10.2) mg/dL AST 48 H (14-36) U/L ALT 45 H (4-34) U/L Alkaline Phosphatase 127 H (38-126) U/L Total Protein 7.8 (6.3-8.2) g/dL Albumin 4.8 (3.5-5.0) g/dL Calcium panel 12/01/22 Range/Units 02:18 Calcium 9.6 (8.4-10.2) mg/dL Albumin 4.8 (3.5-5.0) g/dL Pituitary panel 12/01/22 Range/Units 02:18 Sodium 140 (137-145) mmol/L Potassium 3.4 L (3.5-5.1) mmol/L Chloride 101 (98-107) mmol/L Carbon Dioxide 27 (22-30) mmol/L BUN 15 (7-17) mg/dL Creatinine 0.63 (0.52-1.04) mg/dL Glucose 163 H (74-99) mg/dL Calcium 9.6 (8.4-10.2) mg/dL Adrenal panel 12/01/22 Range/Units 02:18 Sodium 140 (137-145) mmol/L Potassium 3.4 L (3.5-5.1) mmol/L Chloride 101 (98-107) mmol/L Carbon Dioxide 27 (22-30) mmol/L BUN 15 (7-17) mg/dL Creatinine 0.63 (0.52-1.04) mg/dL Glucose 163 H (74-99) mg/dL Calcium 9.6 (8.4-10.2) mg/dL Total Bilirubin 1.1 (0.2-1.3) mg/dL AST 48 H (14-36) U/L ALT 45 H (4-34) U/L Alkaline Phosphatase 127 H (38-126) U/L Total Protein 7.8 (6.3-8.2) g/dL Albumin 4.8 (3.5-5.0) g/dL
[2022-12-01] MEDS ORDERED: IV FLUID CONTINUATION 1,000 ML IV ONE (10:23)
--- NOTE | 2022-12-01 10:27 | P.CRDCN ---
History of Present Illness History of present illness: HISTORY OF PRESENT ILLNESS: This is a 81-year-old female with a past medical history significant for coronary artery disease with previous stenting and three-vessel CABG in 1998, persistent atrial fibrillation, hypertension, and hyperlipidemia. Patient follows in the office with Dr. Miller. We have been asked to see the patient in consultation for A. fib with RVR. Patient examined at the bedside. Patient presented to the hospital yesterday with a chief complaint of back pain, abdominal pain, nausea and vomiting. The patient states she started having nausea yesterday and was vomiting frequently in the afternoon. She states she was having dark brown/black emesis. The patient is anticoagulated with Coumadin. Her INR is 1.9. Hemoglobin has been stable. She reports right upper quadrant and epigastric pain. The patient was found to be in A. fib with RVR on admission. She was started on IV Cardizem. She remains in atrial fibrillation this morning with a heart rate in the low 100s. She denies chest pain or pressure. She denies shortness of breath. * EKG reveals A. fib with RVR * Laboratory data: WBC 14.0. Hemoglobin 13.8. Platelet count 148. Sodium 140. Potassium 3.4. BUN 15. Creatinine 0.63. Troponin negative 1. * Current home cardiac medications include warfarin 5 mg at night, Imdur 30 mg daily, digoxin 125 g every 48 hours, metoprolol titrate 75 mg twice a day, lovastatin 40 mg daily, Cardizem 120 mg daily * Most recent echocardiogram obtained in January 2022 revealed ejection fraction 45-50%, mild aortic regurgitation, [id number] mitral regurgitation, mild tricuspid regurgitation REVIEW OF SYSTEMS: At the time of my exam: CONSTITUTIONAL: Denies fever or chills. HEENT: Denies blurred vision, vision changes, or eye pain. Denies hemoptysis CARDIOVASCULAR: Denies chest pain. Denies orthopnea. Denies PND. Denies palpitations RESPIRATORY: Denies shortness of breath. GASTROINTESTINAL: Denies abdominal pain. Denies nausea or vomiting. HEMATOLOGIC: Denies bleeding disorders. GENITOURINARY: Denies any blood in urine. SKIN: Denies pruitis. Denies rash. PHYSICAL EXAM: VITAL SIGNS: Reviewed. GENERAL: Well-developed in no acute distress. HEENT: Head is normocephalic. Pupils are equal, round. Sclerae anicteric. Mucous membranes of the mouth are moist. Neck supple. No JVD or thyromegaly LUNGS: Respirations even and unlabored. Lungs essentially clear to auscultation bilaterally. HEART: Tachycardic. Irregular rate and rhythm. S1 and S2 heard. ABDOMEN: Soft. Nondistended. Tenderness upon palpation EXTREMITIES: Normal range of motion. No clubbing or cyanosis. Peripheral pulses intact. No lower extremity edema NEUROLOGIC: Awake and alert. Oriented x 3. ASSESSMENT: Acute cholecystitis Leukocytosis Persistent atrial fibrillation with RVR Coronary artery disease with previous stenting and CABG Hypertension Hyperlipidemia PLAN: Obtain 2-D echo to assess cardiac structure and function Resume home cardiac medications Wean off IV Cardizem drip Continue telemetry monitoring Hold Coumadin. Resume postoperatively. Patient has no complaints of angina and is clinically euvolemic with no signs of acute heart failure Patient scheduled for laparoscopic cholecystectomy today. No absolute contraindications from a cardiac standpoint to proceed with surgery. Further recommendations pending patient's course Nurse practitioner note has been reviewed by physician. Signing provider agrees with the documented findings, assessment, and plan of care. Past Medical History Past Medical History: Atrial Fibrillation, Hyperlipidemia, Hypertension, Thyroid Disorder Additional Past Medical History / Comment(s): irregular stoo ls,contipation,abdominal pain and incontinent of stools when sneezing or coughing,doesn't feel like emptying bowel, hx GOUT,ANEMIA History of Any Multi-Drug Resistant Organisms: None Reported Past Surgical History: Section, Coronary Bypass/CABG, Heart Catheterization, Heart Catheterization With Stent, Hysterectomy Additional Past Surgical History / Comment(s): TRIPLE BYPASS. LEFT KNEE TOTAL X2. COLONOSCOPY Past Anesthesia/Blood Transfusion Reactions: No Reported Reaction Additional Past Anesthesia/Blood Transfusion Reaction / Comment(s): SLOW TO WAKE. no problems with prior blood transfusions Date of Last Stent Placement:: 1995 Past Psychological History: No Psychological Hx Reported Smoking Status: Never smoker Past Alcohol Use History: None Reported Past Drug Use History: None Reported - Past Family History Mother Family Medical History: No Reported History Father Family Medical History: Cancer Sister(s) Family Medical History: Cancer Additional Family Medical History / Comment(s): ovarian CA Medications and Allergies Home Medications Medication Instructions Recorded Confirmed Type allopurinoL [Zyloprim] 300 mg PO DAILY 07/30/19 12/01/22 History Isosorbide Mononitrate ER [Imdur] 30 mg PO DAILY 01/19/22 12/01/22 History Lovastatin [Mevacor] 40 mg PO DAILY 01/19/22 12/01/22 History Pantoprazole [Protonix] 40 mg PO DAILY 01/19/22 12/01/22 History Terazosin [Hytrin] 2 mg PO HS 01/19/22 12/01/22 History Warfarin [Coumadin] 5 mg PO HS 01/19/22 12/01/22 History Multivitamins, Thera [Multivitamin 1 tab PO DAILY 02/02/22 12/01/22 History (formulary)] Digoxin [Lanoxin] 125 mcg PO Q48H #15 tab 02/10/22 12/01/22 Rx Metoprolol Tartrate 75 mg PO BID #180 tab 02/10/22 12/01/22 Rx Zinc Sulfate [Orazinc] 220 mg PO DAILY #30 capsule 02/10/22 12/01/22 Rx Calcium Citrate/Vitamin D3 1 tab PO DAILY 12/01/22 12/01/22 History [Citracal + D Maximum Caplet] Folic Acid 0.8 mg PO DAILY 12/01/22 12/01/22 History Levothyroxine Sodium [Synthroid] 112 mcg PO DAILY 12/01/22 12/01/22 History dilTIAZem HCL [Cardizem CD] 120 mg PO DAILY 12/01/22 12/01/22 History Allergies Allergy/AdvReac Type Severity Reaction Status Date / Time adhesive tape Allergy Rash/Hives,paper Verified 12/01/22 10:32 tape is ok nickel Allergy REACTED TO Verified 12/01/22 10:32 METAL, KNEE HAD TO REPLACED. codeine AdvReac Hallucinati Verified 12/01/22 10:32 ons Physical Exam Vitals: Vital Signs Temp Pulse Pulse Resp BP BP Pulse Ox 12/01/22 06:00 97.8 F 110 H 16 159/76 93 L 12/01/22 05:56 110 H 16 12/01/22 05:11 118 H 18 152/80 97 12/01/22 04:11 113 H 20 174/79 97 12/01/22 02:59 115 H 18 174/98 96 12/01/22 02:04 98.2 F 117 H 18 169/96 98 Intake and Output 11/30/22 12/01/22 12/01/22 22:59 06:59 14:59 Output Total 0 Balance 0 Output: Urine 0 Other: # Voids 0 Weight 64.41 kg Results 12/01/22 02:18 12/01/22 02:18 Cardiac Enzymes 12/01/22 12/01/22 Range/Units 02:18 02:18 AST 48 H (14-36) U/L Troponin I <0.012 (0.000-0.034) ng/mL Coagulation 12/01/22 Range/Units 02:18 PT 19.0 H (9.0-12.0) sec APTT 32.4 H (22.0-30.0) sec CBC 12/01/22 Range/Units 02:18 WBC 14.0 H (3.8-10.6) k/uL RBC 4.39 (3.80-5.40) m/uL Hgb 13.8 (11.4-16.0) gm/dL Hct 42.2 (34.0-46.0) % Plt Count 148 L (150-450) k/uL Comprehensive Metabolic Panel 12/01/22 Range/Units 02:18 Sodium 140 (137-145) mmol/L Potassium 3.4 L (3.5-5.1) mmol/L Chloride 101 (98-107) mmol/L Carbon Dioxide 27 (22-30) mmol/L BUN 15 (7-17) mg/dL Creatinine 0.63 (0.52-1.04) mg/dL Glucose 163 H (74-99) mg/dL Calcium 9.6 (8.4-10.2) mg/dL AST 48 H (14-36) U/L ALT 45 H (4-34) U/L Alkaline Phosphatase 127 H (38-126) U/L Total Protein 7.8 (6.3-8.2) g/dL Albumin 4.8 (3.5-5.0) g/dL Current Medications Generic Name Dose Route Start Last Admin Trade Name Freq PRN Reason Stop Dose Admin Hydromorphone HCl 0.5 mg 12/01/22 04:15 12/01/22 04:44 Hydromorphone 0.5 Mg/0.5 Ml Syringe IVP 0.5 mg Q3HR PRN Administration Moderate Pain (Scale 4 to 6) Sodium Chloride 1,000 mls @ 75 mls/hr 12/01/22 03:00 12/01/22 05:10 Saline 0.9% IV 75 mls/hr .[id number] CHARLIE Administration Piperacillin Sod/Tazobactam 100 mls @ 25 mls/hr 12/01/22 04:00 12/01/22 04:23 Sod 3.375 gm/ Sodium Chloride IVPB 25 mls/hr Q8H CHARLIE Administration Protocol Diltiazem HCl 125 mg/ Sodium 125 mls @ 5 mls/hr 12/01/22 04:15 12/01/22 04:47 Chloride IV 5 mg/hr .Q24H CHARLIE 5 mls/hr Administration 5 MG/HR Metoclopramide HCl 5 mg 12/01/22 06:43 Metoclopramide 5 Mg/Ml 2 Ml Vial IVP Q6HR PRN Nausea And Vomiting Naloxone HCl 0.2 mg 12/01/22 04:15 Naloxone 0.4 Mg/Ml 1 Ml Vial IV Q2M PRN Opioid Reversal Ondansetron HCl 4 mg 12/01/22 06:41 Ondansetron 4 Mg/2 Ml Vial IVP Q6HR PRN Nausea And Vomiting Pantoprazole Sodium 40 mg 12/01/22 09:00 Pantoprazole 40 Mg/10 Ml Vial IV BID CHARLIE Sucralfate 1 gm 12/01/22 07:30 Sucralfate 1 Gm Tab PO [facility] Intake and Output 11/30/22 12/01/22 12/01/22 22:59 06:59 14:59 Output Total 0 Balance 0 Output: Urine 0 Other: # Voids 0 Weight 64.41 kg 12/01/22 02:18 12/01/22 02:18
[2022-12-01] MEDS ORDERED: ONDANSETRON 4 MG/2 ML VIAL ONE (10:40)
[2022-12-01] MEDS ORDERED: ETOMIDATE 2 MG/ML 10 ML VIAL ONE (10:40)
[2022-12-01] MEDS ORDERED: GLYCOPYRROLATE 0.2 MG/ML 2 ML VIAL ONE (10:40)
[2022-12-01] MEDS ORDERED: fentaNYL (PF) 50 MCG/ML 2 ML AMP ONE (10:40)
[2022-12-01] MEDS ORDERED: diphenhydrAMINE 50 MG/ML 1 ML VIAL ONE (10:40)
[2022-12-01] MEDS ORDERED: NEOSTIGMINE 1 MG/ML 10 ML VIAL ONE (10:40)
[2022-12-01] MEDS ORDERED: KETAMINE 10 MG/ML 20 ML VIAL ONE (10:40)
[2022-12-01] MEDS ORDERED: SUCCINYLCHOLINE CHLORIDE 200 MG/10 ML VIAL IV ONE (10:40)
[2022-12-01] MEDS ORDERED: LIDOCAINE 2% INJ 20 MG/ML (2 ML VIAL) ONE (10:40)
[2022-12-01] MEDS ORDERED: DEXAMETHASONE SOD PHOS (MDV) 100 MG/10 ML VIAL ONE (10:40)
[2022-12-01] MEDS ORDERED: LACTATED RINGERS 1,000 ML IV ONE ×2 (10:45→11:39)
[2022-12-01] MEDS ORDERED: ACETAMINOPHEN TAB 325 MG TAB PO PRN (11:39)
[2022-12-01] MEDS ORDERED: HYDROmorphone 1 MG/ML 1 ML SYRINGE IVP PRN (11:39)
[2022-12-01] MEDS ORDERED: HYDROcodone/APAP 5-325MG 1 EACH TAB PO PRN ×2 (11:39)
--- NOTE | 2022-12-01 11:39 | P.OP ---
Date of Procedure: 12/01/22 Preoperative Diagnosis: Acute cholecystitis Postoperative Diagnosis: Acute gangrenous cholecystitis Procedure(s) Performed: Laparoscopic cholecystectomy Anesthesia: EMERY Surgeon: Tommy Hernandez Estimated Blood Loss (ml): 10 Pathology: other (Gallbladder) Condition: stable Disposition: PACU Description of Procedure: The patient was placed on the operating table. The patient received a general endotracheal tube anesthesia. The patients abdomen was prepped and draped in the usual sterile fashion. Through an infraumbilical stab incision, the fascia of the anterior abdominal wall was grasped with a pair of Kochers and then the Veress needle was placed in the peritoneal cavity. Position of the Veress needle was confirmed with positive drop test. The abdomen was then insufflated. After adequate insufflation, the 10 mm trocar was placed in the peritoneal cavity. Following this the laparoscope was placed in the peritoneal cavity. The patient was placed in the head-up, right side up position and then a 5 mm trocar was placed in the right lateral and right subcostal position under direct visualization. A 8 mm trocar was placed in the epigastric position. There appeared to be necrosis of the gallbladder wall. The gallbladder was quite thickened. The gallbladder was hydropic. The gallbladder was aspirated prior to grasping the gallbladder. The gallbladder was grasped in the fundus and infundibulum. Traction on the gallbladder was placed in the lateral and the cephalad positions. The triangle of Calot was visualized.. The cystic duct was bluntly dissected until the union of the cystic duct and common bile duct was seen. A critical view of safety was achieved. The cystic duct was then divided and sealed with the Harmonic scissors. A PDS Endoloop was then placed throughout the cystic duct stump. The cystic artery divided and sealed with the Harmonic scissors. The gallbladder was then removed from the liver bed using Harmonic scissors. The gallbladder was then extracted through the epigastric port site. Operative field was checked for any bleeding spots and Harmonic scissors was used to coagulate the liver bed. The abdomen was irrigated. The trocars were removed. The skin was closed using interrupted 3-0 Vicryl suture. Dermabond dressing were applied. The patient tolerated the procedure well.
[2022-12-01] MEDS ORDERED: SODIUM CHLORIDE 0.9% 1,000 ML IV ONE (13:15)
[2022-12-01] MEDS ORDERED: Potassium Replacement Protocol 1 EACH MISC MISCELLANE PRN (13:27)
[2022-12-01] MEDS ORDERED: METOPROLOL TARTRATE 25 MG TAB PO STA (13:39)
--- NOTE | 2022-12-01 14:01 | P.HPIM ---
History of Present Illness H&P Date: 12/01/22 Chief Complaint: Abd. pain, dark black emesis This is a pleasant 81-year-old female with past medical history of atrial fibrillation-on Coumadin, CAD, history of CABG, PCI , anemia ,hypothyroidism,HLD, polyneuropathy, cervical spondylosis C4-5 with right neural foraminal narrowing and multiple other medical issues presented to the ER with complaints of significant abdominal pain, greatest in midepigastric and right upper quadrant, started last night approximately 2 hours after consuming meat loaf sandwich ,accompanied by nausea and one episode of vomiting "dark black "e mesis. Otherwise hematuria, dysuria or change in voiding or bowel habits. CT of abdomen and pelvis reported evidence of a dilated gallbladder and mild thickening wall suggestive of acute cholecystitis, dilated urinary bladder consistent with bladder outlet obstruction, L2 compression fracture appears new, 3.4 cm abdominal aortic aneurysm, increased and bibasilar atelectasis. LFTs mildly elevated. Patient also was placed on Cardizem drip secondary to A. fib with RVR. Troponin negative. Afebrile, WBC 14. Lactic acid 1.9, Hemoglobin 13.8, platelets 148, INR 1.9. Potassium 3.4. Renal function stable. Review of Systems ROS Statement: Those systems with pertinent positive or pertinent negative responses have been documented in the HPI. ROS Other: All systems not noted in ROS Statement are negative. Past Medical History Past Medical History: Atrial Fibrillation, Hyperlipidemia, Hypertension, Thyroid Disorder Additional Past Medical History / Comment(s): irregular stools,contipation,abdominal pain and incontinent of stools when sneezing or coughing,doesn't feel like emptying bowel, hx GOUT,ANEMIA History of Any Multi-Drug Resistant Organisms: None Reported Past Surgical History: Section, Coronary Bypass/CABG, Heart Catheterization, Heart Catheterization With Stent, Hysterectomy Additional Past Surgical History / Comment(s): TRIPLE BYPASS. LEFT KNEE TOTAL X2. COLONOSCOPY Past Anesthesia/Blood Transfusion Reactions: No Reported Reaction Additional Past Anesthesia/Blood Transfusion Reaction / Comment(s): SLOW TO WAKE. no problems with prior blood transfusions Date of Last Stent Placement:: 1995 Past Psychological History: No Psychological Hx Reported Smoking Status: Never smoker Past Alcohol Use History: None Reported Past Drug Use History: None Reported - Past Family History Mother Family Medical History: No Reported History Father Family Medical History: Cancer Sister(s) Family Medical History: Cancer Additional Family Medical History / Comment(s): ovarian CA Medications and Allergies Home Medications Medication Instructions Recorded Confirmed Type allopurinoL [Zyloprim] 300 mg PO DAILY 07/30/19 12/01/22 History Isosorbide Mononitrate ER [Imdur] 30 mg PO DAILY 01/19/22 12/01/22 History Lovastatin [Mevacor] 40 mg PO DAILY 01/19/22 12/01/22 History Pantoprazole [Protonix] 40 mg PO DAILY 01/19/22 12/01/22 History Terazosin [Hytrin] 2 mg PO HS 01/19/22 12/01/22 History Warfarin [Coumadin] 5 mg PO HS 01/19/22 12/01/22 History Multivitamins, Thera [Multivitamin 1 tab PO DAILY 02/02/22 12/01/22 History (formulary)] Digoxin [Lanoxin] 125 mcg PO Q48H #15 tab 02/10/22 12/01/22 Rx Metoprolol Tartrate 75 mg PO BID #180 tab 02/10/22 12/01/22 Rx Zinc Sulfate [Orazinc] 220 mg PO DAILY #30 capsule 02/10/22 12/01/22 Rx Calcium Citrate/Vitamin D3 1 tab PO DAILY 12/01/22 12/01/22 History [Citracal + D Maximum Caplet] Folic Acid 0.8 mg PO DAILY 12/01/22 12/01/22 History Levothyroxine Sodium [Synthroid] 112 mcg PO DAILY 12/01/22 12/01/22 History dilTIAZem HCL [Cardizem CD] 120 mg PO DAILY 12/01/22 12/01/22 History Allergies Allergy/AdvReac Type Severity Reaction Status Date / Time adhesive tape Allergy Rash/Hives,paper Verified 12/01/22 10:32 tape is ok nickel Allergy REACTED TO Verified 12/01/22 10:32 METAL, KNEE HAD TO REPLACED. codeine AdvReac Hallucinati Verified 12/01/22 10:32 ons Physical Exam Vitals: Vital Signs Temp Pulse Pulse Resp BP BP BP 12/01/22 12:39 101 H 18 130/61 12/01/22 12:24 105 H 18 127/60 12/01/22 12:09 85 18 130/63 12/01/22 11:53 91 16 126/61 12/01/22 11:38 97.6 F 109 H 12 132/75 12/01/22 10:23 101 H 16 146/69 12/01/22 09:10 126 H 163/77 12/01/22 08:00 120 H 12/01/22 07:55 98.6 F 120 H 15 158/75 12/01/22 06:00 97.8 F 110 H 16 159/76 12/01/22 05:56 110 H 16 12/01/22 05:11 118 H 18 152/80 12/01/22 04:11 113 H 20 174/79 12/01/22 02:59 115 H 18 174/98 12/01/22 02:04 98.2 F 117 H 18 169/96 Pulse Ox 12/01/22 12:39 95 12/01/22 12:24 95 12/01/22 12:09 95 12/01/22 11:53 99 12/01/22 11:38 96 12/01/22 10:23 94 L 12/01/22 09:10 12/01/22 08:00 12/01/22 07:55 94 L 12/01/22 06:00 93 L 12/01/22 05:56 12/01/22 05:11 97 12/01/22 04:11 97 12/01/22 02:59 96 12/01/22 02:04 98 Intake and Output 11/30/22 12/01/22 12/01/22 22:59 06:59 14:59 Intake Total 900 Output Total 0 10 Balance 0 890 Intake: IV 900 Output: Urine 0 Estimated Blood Loss 10 Other: # Voids 0 Weight 64.41 kg General: well nourished, well developed, NAD. Vitals reviewed Eyes: PERRL, EOMI, conjunctiva normal HENT: normocephalic, mucus membranes dry Neck: supple, no JVD Lungs: Unlabored normal respiratory effort, no wheezes or rales. Bilateral bases diminished CV: Tachycardic rate, irregular rhythm, no murmur. Peripheral pulses 2+ Abdomen: soft, distended, tender mid epigastric and right upper quadrant,minimal tenderness bilateral lower quadrants. Lymph: no cervical or axillary LAD Skin: warm and dry. Neuro: A&Ox3, normal mood and affect Results CBC & Chem 7: 12/01/22 02:18 12/01/22 02:18 Labs: Abnormal Lab Results - Last 24 Hours (Table) 12/01/22 12/01/22 12/01/22 Range/Units 02:18 02:18 02:18 WBC 14.0 H (3.8-10.6) k/uL Plt Count 148 L (150-450) k/uL Neutrophils # 12.8 H (1.3-7.7) k/uL Lymphocytes # 0.6 L (1.0-4.8) k/uL PT 19.0 H (9.0-12.0) sec INR 1.9 H (<1.2) APTT 32.4 H (22.0-30.0) sec Potassium 3.4 L (3.5-5.1) mmol/L Glucose 163 H (74-99) mg/dL AST 48 H (14-36) U/L ALT 45 H (4-34) U/L Alkaline Phosphatase 127 H (38-126) U/L Thrombosis Risk Factor Assmnt - Choose All That Apply Each Risk Factor Represents 3 Points: Age 75 years or older Thrombosis Risk Factor Assessment Total Risk Factor Score: 3 Thrombosis Risk Factor Assessment Level: Moderate Risk Assessment and Plan Assessment: Abdominal pain, CT suggests acute cholecystitis Leukocytosis secondary to above Persistent atrial fibrillation with RVR in a patient with history of Chronic persistent A. fib. Bibasilar atelectasis Abdominal aortic aneurysm, increased in size, 3.4 cm, further follow-up outpatient vascular surgery Possible bladder outlet obstruction History of polyneuropathy, cervical [id number] right neural foraminal narrowing- Status post IVIG infusions. Anemia, hemolytic autioimmune, follows with hematology CAD, history of CABG,PCI Hypertension Hyperlipidemia Hypothyroidism Anxiety Plan: Continue on current medication regime ,monitoring and symptomatic treatment. Hold Coumadin, surgery pending. General surgery consult in place. Echo pending. Cardiac clearance being obtained. Antiarrhythmics as per cardiology, currently on Cardizem drip. Urology consulted regarding abnormal CT reporting possible bladder outlet obstruction. Potassium supplementation ordered, magnesium level ordered/pending. The impression and plan of care has been dictated as directed. : I performed a history and examination of this patient, discussed the same with the dictator. I agree with the dictator's note ,documented as a scribe. Any additional findings or plans will be noted.
[2022-12-01] MEDS: KETOROLAC 15 MG/ML 1 ML VIAL IVP SCH ×2 (14:06→18:09)
--- NOTE | 2022-12-01 15:44 | P.GSCN ---
History of Present Illness Consult date: 12/01/22 Reason for Consult: Bladder outlet obstruction Requesting physician: Lanny Virk History of present illness: The patient is a 81-year-old female with past medical history significant for A. fib on Coumadin, hyperlipidemia, hypertension, hypothyroid, and CAD/CABG x 3 v. She presented to the emergency department on 12/01/22 with epigastric pain and vomiting. CT of abdomen and pelvis reported a dilated gallbladder and mild thickening wall suggestive of acute cholecystitis, CT also showed dilated urinary bladder. She indicates she does have some difficulty voiding at baseline, denies any previous history of retention, recurrent UTIs or kidney stones. Review of Systems - Constitutional Denies chills, Denies fever - EENT Ears, nose, mouth and throat: Denies headache - Cardiovascular Denies chest pain, Denies shortness of breath - Gastrointestinal Reports abdominal pain, Reports nausea, Reports vomiting - Genitourinary Genitourinary: Reports urge incontinence, Denies dysuria, Denies hematuria, Denies urinary frequency Past Medical History Past Medical History: Atrial Fibrillation, Hyperlipidemia, Hypertension, Thyroid Disorder Additional Past Medical History / Comment(s): irregular stools,contipation,abdominal pain and incontinent of stools when sneezing or coughing,doesn't feel like emptying bowel, hx GOUT,ANEMIA History of Any Multi-Drug Resistant Organisms: None Reported Past Surgical History: Section, Coronary Bypass/CABG, Heart Catheterization, Heart Catheterization With Stent, Hysterectomy Additional Past Surgical History / Comment(s): TRIPLE BYPASS. LEFT KNEE TOTAL X2. COLONOSCOPY Past Anesthesia/Blood Transfusion Reactions: No Reported Reaction Additional Past Anesthesia/Blood Transfusion Reaction / Comm: SLOW TO WAKE. no problems with prior blood transfusions Date of Last Stent Placement:: 1995 Past Psychological History: No Psychological Hx Reported Smoking Status: Never smoker Past Alcohol Use History: None Reported Past Drug Use History: None Reported - Past Family History Mother Family Medical History: No Reported History Father Family Medical History: Cancer Sister(s) Family Medical History: Cancer Additional Family Medical History / Comment(s): ovarian CA Medications and Allergies Home Medications Medication Instructions Recorded Confirmed Type allopurinoL [Zyloprim] 300 mg PO DAILY 07/30/19 12/01/22 History Isosorbide Mononitrate ER [Imdur] 30 mg PO DAILY 01/19/22 12/01/22 History Lovastatin [Mevacor] 40 mg PO DAILY 01/19/22 12/01/22 History Pantoprazole [Protonix] 40 mg PO DAILY 01/19/22 12/01/22 History Terazosin [Hytrin] 2 mg PO HS 01/19/22 12/01/22 History Warfarin [Coumadin] 5 mg PO HS 01/19/22 12/01/22 History Multivitamins, Thera [Multivitamin 1 tab PO DAILY 02/02/22 12/01/22 History (formulary)] Digoxin [Lanoxin] 125 mcg PO Q48H #15 tab 02/10/22 12/01/22 Rx Metoprolol Tartrate 75 mg PO BID #180 tab 02/10/22 12/01/22 Rx Zinc Sulfate [Orazinc] 220 mg PO DAILY #30 capsule 02/10/22 12/01/22 Rx Calcium Citrate/Vitamin D3 1 tab PO DAILY 12/01/22 12/01/22 History [Citracal + D Maximum Caplet] Folic Acid 0.8 mg PO DAILY 12/01/22 12/01/22 History Levothyroxine Sodium [Synthroid] 112 mcg PO DAILY 12/01/22 12/01/22 History dilTIAZem HCL [Cardizem CD] 120 mg PO DAILY 12/01/22 12/01/22 History Allergies Allergy/AdvReac Type Severity Reaction Status Date / Time adhesive tape Allergy Rash/Hives,paper Verified 12/01/22 10:32 tape is ok nickel Allergy REACTED TO Verified 12/01/22 10:32 METAL, KNEE HAD TO REPLACED. codeine AdvReac Hallucinati Verified 12/01/22 10:32 ons Surgical - Exam Vital Signs Temp Pulse Resp BP Pulse Ox 98.2 F 117 H 18 169/96 98 12/01/22 02:04 12/01/22 02:04 12/01/22 02:04 12/01/22 02:04 12/01/22 02:04 General: Well developed, well nourished. No acute distress. HEENT: Head is atraumatic, normocephalic. Lungs: Respirations even and nonlabored. Abdomen/GI: Soft. No guarding, rigidity, or abdominal tenderness. : No suprapubic tenderness. No flank tenderness. Skin: Warm and dry, laparoscopic abdominal incisions clean dry and intact Neurologic: Awake, alert and oriented times 3. CN II-XII grossly intact. No fo sada deficits. Psychiatric: Appropriate mood and affect. Results - Labs 12/01/22 02:18 12/01/22 02:18 Abnormal Lab Results - Last 24 Hours (Table) 12/01/22 12/01/22 12/01/22 Range/Units 02:18 02:18 02:18 WBC 14.0 H (3.8-10.6) k/uL Plt Count 148 L (150-450) k/uL Neutrophils # 12.8 H (1.3-7.7) k/uL Lymphocytes # 0.6 L (1.0-4.8) k/uL PT 19.0 H (9.0-12.0) sec INR 1.9 H (<1.2) APTT 32.4 H (22.0-30.0) sec Potassium 3.4 L (3.5-5.1) mmol/L Glucose 163 H (74-99) mg/dL AST 48 H (14-36) U/L ALT 45 H (4-34) U/L Alkaline Phosphatase 127 H (38-126) U/L Diabetes panel 12/01/22 Range/Units 02:18 Sodium 140 (137-145) mmol/L Potassium 3.4 L (3.5-5.1) mmol/L Chloride 101 (98-107) mmol/L Carbon Dioxide 27 (22-30) mmol/L BUN 15 (7-17) mg/dL Creatinine 0.63 (0.52-1.04) mg/dL Glucose 163 H (74-99) mg/dL Calcium 9.6 (8.4-10.2) mg/dL AST 48 H (14-36) U/L ALT 45 H (4-34) U/L Alkaline Phosphatase 127 H (38-126) U/L Total Protein 7.8 (6.3-8.2) g/dL Albumin 4.8 (3.5-5.0) g/dL Calcium panel 12/01/22 Range/Units 02:18 Calcium 9.6 (8.4-10.2) mg/dL Albumin 4.8 (3.5-5.0) g/dL Pituitary panel 12/01/22 Range/Units 02:18 Sodium 140 (137-145) mmol/L Potassium 3.4 L (3.5-5.1) mmol/L Chloride 101 (98-107) mmol/L Carbon Dioxide 27 (22-30) mmol/L BUN 15 (7-17) mg/dL Creatinine 0.63 (0.52-1.04) mg/dL Glucose 163 H (74-99) mg/dL Calcium 9.6 (8.4-10.2) mg/dL Adrenal panel 12/01/22 Range/Units 02:18 Sodium 140 (137-145) mmol/L Potassium 3.4 L (3.5-5.1) mmol/L Chloride 101 (98-107) mmol/L Carbon Dioxide 27 (22-30) mmol/L BUN 15 (7-17) mg/dL Creatinine 0.63 (0.52-1.04) mg/dL Glucose 163 H (74-99) mg/dL Calcium 9.6 (8.4-10.2) mg/dL Total Bilirubin 1.1 (0.2-1.3) mg/dL AST 48 H (14-36) U/L ALT 45 H (4-34) U/L Alkaline Phosphatase 127 H (38-126) U/L Total Protein 7.8 (6.3-8.2) g/dL Albumin 4.8 (3.5-5.0) g/dL - Imaging CT scan - abdomen: report reviewed CT scan - pelvis: report reviewed Assessment and Plan Assessment: The patient is s/p laparoscopic cholecystectomy today. She is awake and alert. She denies any history of previous kidney or bladder surgery. No history of previous kidney stones. She denies any dysuria. She reports some incontinence and states sometimes she needs to strain to empty her bladder. Nursing staff was instructed to check a PVR. If it is greater than 400 mL a Sidhu catheter may be placed. She is stable from a urological standpoint to be discharged. She may be discharged home with a Sidhu catheter, if postvoid residuals greater than 400, with outpatient follow-up in 1 week. If PVR is less than 400 mL no need for sidhu catheter Plan: - Check PVR, if > 400 mL insert Sidhu catheter Thank you for this consultation Impression and plan of care have been directed as dictated by the signing physician. Antoinette Stanson nurse practitioner acting as scribe for signing physician. Antoinette Tony [facility] Palliative Care/Urology Spectralink [phone] Email: [email or web address] I personally performed and participated in the history, physical, the decision making, I agree with the assessment and plan of [employer]ER/DESIGNER
[2022-12-01] MEDS: DOCUSATE 100 MG CAP PO SCH (20:14)
[2022-12-01] MEDS: METOPROLOL TARTRATE 50 MG TAB PO SCH (20:14)
[2022-12-02] MEDS: KETOROLAC 15 MG/ML 1 ML VIAL IVP SCH ×5 (00:10→23:09)
[2022-12-02] MEDS: PIPERACILLIN-TAZOBACTAM 3.375 GM in SODIUM CHLORIDE 0.9% 100 ML IVPB SCH ×3 (04:15→20:44)
[2022-12-02] MEDS: SODIUM CHLORIDE 0.9% 1,000 ML IV SCH ×2 (05:40→20:44)
[2022-12-02] MEDS: SUCRALFATE 1 GM TAB PO SCH ×4 (07:30→20:43)
[2022-12-02 07:56] LABS: Basophils % (A) 0 %; Eosinophils % (A) 0 %; HCT 35.8 % (34.0-46.0); HGB 11.4 gm/dL (11.4-16.0); Lymphocytes # (A) 0.8 k/uL (1.0-4.8); Lymphocytes % (A) 5 %; MCH 31.4 pg (25.0-35.0); MCHC 31.9 g/dL (31.0-37.0); MCV 98.3 fL (80.0-100.0); Mean Platelet Volume 8.7; Monocytes # (A) 0.5 k/uL (0-1.0); Monocytes % (A) 3 %; Neutrophils # (A) 13.1 k/uL (1.3-7.7); Neutrophils % (A) 90 %; Platelet Count 139 k/uL (150-450); RBC 3.64 m/uL (3.80-5.40); RDW 14.9 % (11.5-15.5); WBC 14.5 k/uL (3.8-10.6)
[2022-12-02 08:19] LABS: Albumin 3.6 g/dL (3.5-5.0); Calcium 8.5 mg/dL (8.4-10.2); Potassium 4.5 mmol/L (3.5-5.1); Total Bilirubin 1.3 mg/dL (0.2-1.3); Total Protein 6.1 g/dL (6.3-8.2)
[2022-12-02 08:35] LABS: INR 1.9 (<1.2); Prothrombin Time 18.9 sec (9.0-12.0)
[2022-12-02] MEDS: ISOSORBIDE MONONITRATE ER 30 MG TAB.ER.24H PO SCH (09:36)
[2022-12-02] MEDS: METOPROLOL TARTRATE 50 MG TAB PO SCH ×2 (09:36→20:43)
[2022-12-02] MEDS: ATORVASTATIN 10 MG TAB PO SCH (09:36)
[2022-12-02] MEDS: DOCUSATE 100 MG CAP PO SCH ×2 (09:37→20:43)
[2022-12-02] MEDS: DILTIAZEM CD 120 MG CAP.ER.24H PO SCH (09:37)
[2022-12-02] MEDS: DIGOXIN 125 MCG TAB PO SCH (09:37)
[2022-12-02] MEDS: PANTOPRAZOLE 40 MG/10 ML VIAL IV SCH ×2 (09:37→20:44)
--- NOTE | 2022-12-02 10:39 | P.PN ---
Subjective Progress Note Date: 12/02/22 HISTORY OF PRESENT ILLNESS: This is a 81-year-old female with a past medical history significant for coronary artery disease with previous stenting and three-vessel CABG in 1998, persistent atrial fibrillation, hypertension, and hyperlipidemia. Patient follows in the office with Dr. Miller. We have been asked to see the patient in consultation for A. fib with RVR. Patient examined at the bedside. Patient presented to the hospital yesterday with a chief complaint of back pain, abdominal pain, nausea and vomiting. The patient states she started having nausea yesterday and was vomiting frequently in the afternoon. She states she was having dark brown/black emesis. The patient is anticoagulated with Coumadin. Her INR is 1.9. Hemoglobin has been stable. She reports right upper quadrant and epigastric pain. The patient was found to be in A. fib with RVR on admission. She was started on IV Cardizem. She remains in atrial fibrillation this morning with a heart rate in the low 100s. She denies chest pain or pressure. She denies shortness of breath. * EKG reveals A. fib with RVR * Laboratory data: WBC 14.0. Hemoglobin 13.8. Platelet count 148. Sodium 140. Potassium 3.4. BUN 15. Creatinine 0.63. Troponin negative 1. * Current home cardiac medications include warfarin 5 mg at night, Imdur 30 mg daily, digoxin 125 g every 48 hours, metoprolol titrate 75 mg twice a day, lovastatin 40 mg daily, Cardizem 120 mg daily * Most recent echocardiogram obtained in January 2022 revealed ejection fraction 45-50%, mild aortic regurgitation, [id number] mitral regurgitation, mild tricuspid regurgitation 12/02/2022 Patient is status post laparoscopic cholecystectomy. She was found to have acute gangrenous cholecystitis. Postop day #1. Patient examined this morning at the bedside. Patient denies chest pain or pressure. She denies shortness of breath. She reports mild surgical discomfort. Telemetry reveals atrial fibrillation with a heart rate around 100-105. Her Coumadin remains on hold. PHYSICAL EXAM: VITAL SIGNS: Reviewed. GENERAL: Well-developed in no acute distress. HEENT: Head is normocephalic. Pupils are equal, round. Sclerae anicteric. Mucous membranes of the mouth are moist. Neck supple. No JVD or thyromegaly LUNGS: Respirations even and unlabored. Lungs essentially clear to auscultation bilaterally. HEART: Tachycardic. Irregular rate and rhythm. S1 and S2 heard. ABDOMEN: Soft. Nondistended. Tenderness upon palpation EXTREMITIES: Normal range of motion. No clubbing or cyanosis. Peripheral pulses intact. No lower extremity edema NEUROLOGIC: Awake and alert. Oriented x 3. ASSESSMENT: Acute gangrenous cholecystitis, status post laparoscopic cholecystectomy Leukocytosis Persistent atrial fibrillation with RVR Coronary artery disease with previous stenting and CABG Hypertension Hyperlipidemia PLAN: 2-D echo ordered. Await results. Metoprolol increased yesterday. Continue current dose. Anticipate improvement in heart rate with resolution of infectious process Continue telemetry monitoring Resume Coumadin when okay with general surgery Further recommendations pending patient's course Nurse practitioner note has been reviewed by physician. Signing provider agrees with the documented findings, assessment, and plan of care. Objective - Vital Signs Vital signs: Vital Signs Temp 97.7 F 12/02/22 07:45 Pulse 115 H 12/02/22 10:27 Resp 16 12/02/22 10:27 BP 113/62 12/02/22 07:45 Pulse Ox 94 L 12/02/22 07:45 FiO2 Intake & Output 12/01/22 12/02/22 12/02/22 18:59 06:59 18:59 Intake Total 1800 540 118 Output Total 710 Balance 1090 540 118 Intake: IV 1800 Oral 540 118 Output: Urine 700 Straight 700 Estimated Blood Loss 10 Other: Voiding Method Toilet Toilet # Voids 1 - Labs CBC & Chem 7: 12/02/22 07:42 12/02/22 07:42 Labs: Abnormal Lab Results - Last 24 Hours (Table) 12/02/22 12/02/22 12/02/22 Range/Units 07:42 07:42 07:42 WBC 14.5 H (3.8-10.6) k/uL RBC 3.64 L (3.80-5.40) m/uL Plt Count 139 L (150-450) k/uL Neutrophils # 13.1 H (1.3-7.7) k/uL Lymphocytes # 0.8 L (1.0-4.8) k/uL PT 18.9 H (9.0-12.0) sec INR 1.9 H (<1.2) BUN 19 H (7-17) mg/dL Glucose 134 H (74-99) mg/dL AST 58 H (14-36) U/L ALT 47 H (4-34) U/L Total Protein 6.1 L (6.3-8.2) g/dL Microbiology - Last 24 Hours (Table) 12/01/22 04:05 Blood Culture - Preliminary Blood No Growth after 24 hours 12/01/22 04:20 Blood Culture - Preliminary Blood No Growth after 24 hours
--- NOTE | 2022-12-02 10:40 | CDI ---
Documentation Clarification Form Date: 12/02/2022 10:22:15 AM From: Josie Sanabria RN CCDS Admit Date: 12/01/2022 4:20:00 AM Patient Name: Denise Godinez Visit Number: [id number] Discharge Date: ATTENTION: The Clinical Documentation Specialists (CDI) and [facility] Coding Staff appreciate your assistance in clarifying documentation. Please respond to the clarification below the line at the bottom and electronically sign. The CDI & [facility] Coding staff will review the response and follow-up if needed. Please note: Queries are made part of the Legal Health Record. If you have any questions, please contact the author of this message via ITS. Dr. Wilbert Mei Sepsis from the cholecystitis documented in the surgical consult, 12/01. Based on this information and the findings below, is there an additional diagnosis that is clinically appropriate for this patient? History/Risk Factors: 81-year-old female presents to the ED with abdominal pain and dark black emesis. Medical History: CAD, Atrial Fib on Coumadin and anemia. 12/01, H&P. Clinical Indicators: WBC, 12/01: 14.0 Neutrophils, 12/01: 12.8 Lactic acid, 12/01: 1.9 Blood cultures, 12/01: No growth after 24 hours Vitals signs: 12/01 B/P 169/96, HR 117, Temp 98.2 F, RR 18, SpO2 98% room air Procedure note, 12/01: Post-operative diagnosis: Acute gangrenous cholecystitis Treatment: 12/01 0.9 NS IV 75cc/hr; 12/01 Laparoscopic cholecystectomy. Antibiotics: 12/01 Zosyn IVPB Q8H IV Bolus: 12/01 0.9 NS 500cc Bolus x 1 Is there an additional diagnosis that is clinically appropriate for this patient? [ X] Sepsis, present on admission [ ] Sepsis ruled out [ ] Other, please specify [ ] Unable to determine SIRS Criteria: 2 or more of the following may indicate SIRS Temperature < 96.8F (36C) or > 101.0F (38.3C) Heart Rate > 90 bpm Respiratory Rate > 20 breaths/min or PaCO2 < 32 mmHg White Blood Cell Count > 12,000 or < 4,000 cells/mm3 or > 10% bands Sepsis, present on admission (Template Last Reviewed: November 2022) RODDYD
--- NOTE | 2022-12-02 11:12 | CA ---
Transthoracic Echo Report Name: Denise Godinez Age: 81 Gender: F : 1940 Exam Date: 12/02/2022 08:57 Exam Location: [place] [facility] Ht (in): 60 Wt (lb): 142 Ordering Physician: Gunjan Lowry Attending/Referring Phys: [id number], Essence Superintendent [place]arry James Delgado RDCS Procedure CPT: Indications: LV function Cardiac Hx: unable to obtain subcostal views due to gallbladder removal incision in area. Technical Quality: Fair Contrast 1: Total Dose (mL): Contrast 2: Total Dose (mL): MEASUREMENTS (Male / Female) Normal Values 2D ECHO LV Diastolic Volume MOD 4C 37.3 cm??? LV Systolic Volume MOD 4C 13.6 cm??? LV Ejection Fraction MOD 4C 63.4 % LV Diastolic Length 4C 5.9 cm LV Systolic Length 4C 5.3 cm M-MODE Aortic Root Diameter MM 2.5 cm LA Systolic Diameter MM 7.3 cm LA Ao Ratio MM 2.9 MV E Point Septal Separation 0.3 cm AV Cusp Separation MM 1.3 cm DOPPLER AV Peak Velocity 112.1 cm/s AV Peak Gradient 5.0 mmHg LVOT Peak Velocity 100.2 cm/s LVOT Peak Gradient 4.0 mmHg MR Peak Velocity 447.1 cm/s MR Peak Gradient 80.0 mmHg TR Peak Velocity 241.6 cm/s TR Peak Gradient 23.4 mmHg PV Peak Velocity 64.0 cm/s PV Peak Gradient 1.6 mmHg FINDINGS Left Ventricle Left ventricular hypertrophy. Left ventricular ejection fraction is estimated at 55-60 %. Right Ventricle Reduced right ventricular global systolic function. Right Atrium Severe right atrial dilatation. Left Atrium Severe left atrial dilatation. Mitral Valve Mild mitral regurgitation. Aortic Valve Trileaflet aortic valve. Thickened aortic valve without stenosis. Trace aortic regurgitation. Tricuspid Valve Mild tricuspid regurgitation. Pulmonic Valve Structurally normal pulmonic valve. Mild pulmonic regurgitation. Pericardium No pericardial effusion. No pleural effusion. Aorta Normal size aortic root and proximal ascending aorta. CONCLUSIONS Normal LV systolic function Mild mitral regurgitation Biatrial enlargement Previewed by: Dr. Arnaldo Romero MD (Electronically Signed) Final Date: 02 December 2022 11:12
--- NOTE | 2022-12-02 12:28 | P.PN ---
Subjective Progress Note Date: 12/02/22 CHIEF COMPLAINT: Acute gangrenous cholecystitis HISTORY OF PRESENT ILLNESS: Patient is postop day #1 status post laparoscopic cholecystectomy. Patient reports that her pain is doing better than yesterday. She denies any nausea or vomiting. She is having flatus. Patient did have some bleeding at the incision site at the umbilicus yesterday. The bleeding has stopped. Patient had urinary retention and had to be straight cathed. She is followed by urology. They're checking postvoid residuals. Afebrile. Heart rate 115. WBC is 14.5 Hgb 11.4 platelets 139 INR 1.9 sodium is 138 potassium 4.5 creatinine 0.87 total bili 1.3 AST 58 ALT 47 alk phos 74 patient did report that the regular diet was to heavy to eat and she wanted a letter foods to eat PHYSICAL EXAM: VITAL SIGNS: Reviewed. GENERAL: Well-developed in no acute distress. HEENT: No sclera icterus. Extraocular movements grossly intact. Moist buccal mucosa. Head is atraumatic, normocephalic. ABDOMEN: Soft. Nondistended. Incision sites clean dry and intact the umbilicus incision no longer bleeding. There is some dried blood noted. NEUROLOGIC: Alert and oriented. Cranial nerves II through XII grossly intact. ASSESSMENT: 1. Acute gangrenous cholecystitis status post laparoscopic cholecystectomy 2. A. fib RVR PLAN: -Patient can resume Coumadin tomorrow from surgical standpoint -Diet has been downgraded to full liquids -Continue antibiotics -Encourage patient to ambulate -Continue pain medication as needed -Encourage patient to use incentive spirometer -Continue to monitor incisions Physician Mouthpiece Maker note has been reviewed by physician. Signing provider agrees with the documented findings, assessment, and plan of care. Objective - Vital Signs Vital signs: Vital Signs Temp 97.7 F 12/02/22 07:45 Pulse 115 H 12/02/22 10:27 Resp 16 12/02/22 10:27 BP 113/62 12/02/22 07:45 Pulse Ox 94 L 12/02/22 07:45 FiO2 Intake & Output 12/01/22 12/02/22 12/02/22 18:59 06:59 18:59 Intake Total 1800 540 118 Output Total 710 1025 Balance 1090 540 -907 Intake: IV 1800 Oral 540 118 Output: Urine 700 500 Straight 700 500 Post Void Residual 525 Estimated Blood Loss 10 Other: Voiding Method Toilet Toilet # Voids 1 - Labs CBC & Chem 7: 12/02/22 07:42 12/02/22 07:42 Labs: Abnormal Lab Results - Last 24 Hours (Table) 12/02/22 12/02/22 12/02/22 Range/Units 07:42 07:42 07:42 WBC 14.5 H (3.8-10.6) k/uL RBC 3.64 L (3.80-5.40) m/uL Plt Count 139 L (150-450) k/uL Neutrophils # 13.1 H (1.3-7.7) k/uL Lymphocytes # 0.8 L (1.0-4.8) k/uL PT 18.9 H (9.0-12.0) sec INR 1.9 H (<1.2) BUN 19 H (7-17) mg/dL Glucose 134 H (74-99) mg/dL AST 58 H (14-36) U/L ALT 47 H (4-34) U/L Total Protein 6.1 L (6.3-8.2) g/dL Microbiology - Last 24 Hours (Table) 12/01/22 04:05 Blood Culture - Preliminary Blood No Growth after 24 hours 12/01/22 04:20 Blood Culture - Preliminary Blood No Growth after 24 hours
--- NOTE | 2022-12-02 13:07 | P.PN ---
Subjective Progress Note Date: 12/02/22 The patient is a 81-year-old female with past medical history significant for A. fib on Coumadin, hyperlipidemia, hypertension, hypothyroid, and CAD/CABG x 3 v. She presented to the emergency department on 12/01/22 with epigastric pain and vomiting. CT of abdomen and pelvis reported a dilated gallbladder and mild thickening wall suggestive of acute cholecystitis, CT also showed dilated urinary bladder. She indicates she does have some difficulty voiding at baseline, denies any previous history of retention, recurrent UTIs or kidney stones. 12/01 The patient is s/p laparoscopic cholecystectomy today. She is awake and alert. She denies any history of previous kidney or bladder surgery. No histo ry of previous kidney stones. She denies any dysuria. She reports some incontinence and states sometimes she needs to strain to empty her bladder. Nursing staff was instructed to check a PVR. If it is greater than 400 mL a Sidhu catheter may be placed. She is stable from a urological standpoint to be discharged. She may be discharged home with a Sidhu catheter, if postvoid residuals greater than 400, with outpatient follow-up in 1 week. If PVR is less than 400 mL no need for sidhu catheter. Objective - Vital Signs Vital signs: Vital Signs Temp 97.7 F 12/02/22 07:45 Pulse 110 H 12/02/22 12:00 Resp 18 12/02/22 12:00 BP 109/64 12/02/22 12:00 Pulse Ox 92 L 12/02/22 12:00 FiO2 Intake & Output 12/01/22 12/02/22 12/02/22 18:59 06:59 18:59 Intake Total 1800 540 118 Output Total 710 1025 Balance 1090 540 -907 Intake: IV 1800 Oral 540 118 Output: Urine 700 500 Straight 700 500 Post Void Residual 525 Estimated Blood Loss 10 Other: Voiding Method Toilet Toilet # Voids 1 - Exam General: Well developed, well nourished. No acute distress. HEENT: Head is atraumatic, normocephalic. Lungs: Respirations even and nonlabored. Abdomen/GI: Soft. No guarding, rigidity, or abdominal tenderness. : Sidhu catheter in place draining clear yellow urine Skin: Warm and dry, laparoscopic abdominal incisions clean dry and intact Neurologic: Awake, alert and oriented times 3. CN II-XII grossly intact. No focal deficits. Psychiatric: Appropriate mood and affect. - Labs CBC & Chem 7: 12/02/22 07:42 12/02/22 07:42 Labs: Abnormal Lab Results - Last 24 Hours (Table) 12/02/22 12/02/22 12/02/22 Range/Units 07:42 07:42 07:42 WBC 14.5 H (3.8-10.6) k/uL RBC 3.64 L (3.80-5.40) m/uL Plt Count 139 L (150-450) k/uL Neutrophils # 13.1 H (1.3-7.7) k/uL Lymphocytes # 0.8 L (1.0-4.8) k/uL PT 18.9 H (9.0-12.0) sec INR 1.9 H (<1.2) BUN 19 H (7-17) mg/dL Glucose 134 H (74-99) mg/dL AST 58 H (14-36) U/L ALT 47 H (4-34) U/L Total Protein 6.1 L (6.3-8.2) g/dL Microbiology - Last 24 Hours (Table) 12/01/22 04:05 Blood Culture - Preliminary Blood No Growth after 24 hours 12/01/22 04:20 Blood Culture - Preliminary Blood No Growth after 24 hours Assessment and Plan Assessment: Per nursing staff patient's post void residuals have been greater than 400ml 2. Her last PVR was 525 mL and a Sidhu catheter was placed. The patient will be discharged with a Sidhu catheter and can follow up in our office in 1 week for a voiding trial. She is stable from a urological standpoint to be discharged. Impression and plan of care have been directed as dictated by the signing physician. Antoinette Tony nurse practitioner acting as scribe for signing physician. Antoinette Tony [facility]- Palliative Care/Urology Spectralink [phone] Email: [email or web address] Plan: - Keep Sidhu catheter in place - Patient may be discharged home with Sidhu catheter - Follow up with Dr. Ames in 1 week for voiding trial Thank you for this consultation Impression and plan of care have been directed as dictated by the signing physician. Antoinette Tony nurse practitioner acting as scribe for signing physician. Antoinette Tony [facility] Palliative Care/Urology Spectralink [phone] Email: [email or web address]
--- NOTE | 2022-12-02 15:14 | P.PN ---
Subjective Progress Note Date: 12/02/22 H&P Date: 12/01/22 Chief Complaint: Abd. pain, dark black emesis This is a pleasant 81-year-old female with past medical history of atrial fibrillation-on Coumadin, CAD, history of CABG, PCI , anemia ,hypothyroidism,HLD, polyneuropathy, cervical spondylosis C4-5 with right neural foraminal narrowing and multiple other medical issues presented to the ER with complaints of significant abdominal pain, greatest in midepigastric and right upper quadrant, started last night approximately 2 hours after consuming meat loaf sandwich ,accompanied by nausea and one episode of vomiting "dark black "emesis. Otherwise hematuria, dysuria or change in voiding or bowel habits. CT of abdomen and pelvis reported evidence of a dilated gallbladder and mild thickening wall suggestive of acute cholecystitis, dilated urinary bladder consistent with bladder outlet obstruction, L2 compression fracture appears new, 3.4 cm abdominal aortic aneurysm, increased and bibasilar atelectasis. LFTs mildly elevated. Patient also was placed on Cardizem drip secondary to A. fib with RVR. Troponin negative. Afebrile, WBC 14. Lactic acid 1.9, Hemoglobin 13.8, platelets 148, INR 1.9. Potassium 3.4. Renal function stable. 12/02/22 evaluated by urology, recommendations noted and appreciated. Sidhu catheter inserted secondary to high PVRs. Status post laparoscopic jeet cystectomy with reported acute gangrenous cholecystitis, postop day #1. Post surgery, bleeding at the umbilicus incision site, resolved. Hemoglobin decreased to 11.4, platelets decreased to 139. AST 58, ALT 47, Maintained on antibiotics of Zosyn. Afebrile, WBC trending up to 14.5. Reports her diet was too advanced for her, she preferred to back down to full liquids, not quite ready for regular diet. Metoprolol increased yesterday ,remains in A. fib, tachycardic -better controlled. Coumadin remains on hold, resume once cleared as per surgery. Renal function stable, potassium 4.5. Denies chest pain, palpitations or shortness of breath. Objective - Vital Signs Vital signs: Vital Signs Temp 97.7 F 12/02/22 07:45 Pulse 110 H 12/02/22 13:34 Resp 18 12/02/22 13:34 BP 109/64 12/02/22 12:00 Pulse Ox 92 L 12/02/22 12:00 FiO2 Intake & Output 12/01/22 12/02/22 12/02/22 18:59 06:59 18:59 Intake Total 1800 540 358 Output Total 710 1025 Balance 1090 540 -667 Intake: IV 1800 Oral 540 358 Output: Urine 700 500 Straight 700 500 Post Void Residual 525 Estimated Blood Loss 10 Other: Voiding Method Toilet Toilet # Voids 1 - Exam General: well nourished, well developed, NAD. Vitals reviewed Eyes: PERRL, EOMI, conjunctiva normal HENT: normocephalic, mucus membranes moist Neck: supple, no JVD Lungs: Unlabored normal respiratory effort, no wheezes or rales. Bilateral bases diminished CV: Tachycardic rate-improved, irregular rhythm, no murmur. Peripheral pulses 2+ Abdomen: soft, status post surgery, abdominal binder present. Skin: warm and dry. Neuro: A&Ox3, normal mood and affect - Labs CBC & Chem 7: 12/02/22 07:42 12/02/22 07:42 Labs: Abnormal Lab Results - Last 24 Hours (Table) 12/02/22 12/02/22 12/02/22 Range/Units 07:42 07:42 07:42 WBC 14.5 H (3.8-10.6) k/uL RBC 3.64 L (3.80-5.40) m/uL Plt Count 139 L (150-450) k/uL Neutrophils # 13.1 H (1.3-7.7) k/uL Lymphocytes # 0.8 L (1.0-4.8) k/uL PT 18.9 H (9.0-12.0) sec INR 1.9 H (<1.2) BUN 19 H (7-17) mg/dL Glucose 134 H (74-99) mg/dL AST 58 H (14-36) U/L ALT 47 H (4-34) U/L Total Protein 6.1 L (6.3-8.2) g/dL Microbiology - Last 24 Hours (Table) 12/01/22 04:05 Blood Culture - Preliminary Blood No Growth after 24 hours 12/01/22 04:20 Blood Culture - Preliminary Blood No Growth after 24 hours Assessment and Plan Assessment: Abdominal pain, acute gangrenous cholecystitis status post laparoscopic cholecystectomy Leukocytosis secondary to above Persistent atrial fibrillation with RVR in a patient with history of Chronic persistent A. fib. Bibasilar atelectasis Abdominal aortic aneurysm, increased in size, 3.4 cm, further follow-up outpatient vascular surgery Possible bladder outlet obstruction, urology following Urinary bladder retention, high PVRs, requiring sidhu cath. History of polyneuropathy, cervical [id number] right neural foraminal narrowing- Status post IVIG infusions. Anemia, hemolytic autioimmune, follows with hematology CAD, history of CABG,PCI Hypertension Hyperlipidemia Hypothyroidism Anxiety Plan: Continue on current medication regime ,monitoring and symptomatic treatment. Maintain PPI, Carafate and antibiotics. Coumadin remains on hold, resume pending surgery's clearance. Pending echo/antiarrhythmics as per cardiology. Magnesium level ordered. Aggressive pulmonary toileting with incentive spirometer reinforced. Close monitoring of hemoglobin, electrolytes, renal function with repeat labs ordered for a.m. The impression and plan of care has been dictated as directed. : I performed a history and examination of this patient, discussed the same with the dictator. I agree with the dictator's note ,documented as a scribe. Any additional findings or plans will be noted.
[2022-12-03] MEDS: PIPERACILLIN-TAZOBACTAM 3.375 GM in SODIUM CHLORIDE 0.9% 100 ML IVPB SCH ×3 (04:56→20:27)
[2022-12-03] MEDS: KETOROLAC 15 MG/ML 1 ML VIAL IVP SCH (04:57)
[2022-12-03] MEDS: SUCRALFATE 1 GM TAB PO SCH ×4 (06:55→20:27)
[2022-12-03 07:11] LABS: Basophils % (A) 0 %; Eosinophils # (A) 0.1 k/uL (0-0.7); Eosinophils % (A) 1 %; HCT 33.6 % (34.0-46.0); HGB 10.9 gm/dL (11.4-16.0); Lymphocytes # (A) 1.1 k/uL (1.0-4.8); Lymphocytes % (A) 10 %; MCH 31.5 pg (25.0-35.0); MCHC 32.4 g/dL (31.0-37.0); MCV 97.3 fL (80.0-100.0); Monocytes # (A) 0.4 k/uL (0-1.0); Monocytes % (A) 4 %; Neutrophils # (A) 9.6 k/uL (1.3-7.7); Neutrophils % (A) 85 %; Platelet Count 137 k/uL (150-450); RBC 3.45 m/uL (3.80-5.40); WBC 11.3 k/uL (3.8-10.6)
[2022-12-03 07:14] LABS: INR 1.4 (<1.2); Prothrombin Time 14.3 sec (9.0-12.0)
[2022-12-03 07:27] LABS: African American GFR (CKD) >90 (>60 ml/min/1.73 sqM); Anion Gap 5 mmol/L; Blood Urea Nitrogen 16 mg/dL (7-17); Calcium 8.5 mg/dL (8.4-10.2); Carbon Dioxide 23 mmol/L (22-30); Chloride 110 mmol/L (98-107); Glucose 104 mg/dL (74-99); Non-African American GFR(CKD) 85 (>60 ml/min/1.73 sqM); Potassium 3.6 mmol/L (3.5-5.1); Sodium 138 mmol/L (137-145)
--- NOTE | 2022-12-03 08:59 | P.PN ---
Subjective Progress Note Date: 12/03/22 HISTORY OF PRESENT ILLNESS: This is a 81-year-old female with a past medical history significant for coronary artery disease with previous stenting and three-vessel CABG in 1998, persistent atrial fibrillation, hypertension, and hyperlipidemia. Patient follows in the office with Dr. Miller. We have been asked to see the patient in consultation for A. fib with RVR. Patient examined at the bedside. Patient presented to the hospital yesterday with a chief complaint of back pain, abdominal pain, nausea and vomiting. The patient states she started having nausea yesterday and was vomiting frequently in the afternoon. She states she was having dark brown/black emesis. The patient is anticoagulated with Coumadin. Her INR is 1.9. Hemoglobin has been stable. She reports right upper quadrant and epigastric pain. The patient was found to be in A. fib with RVR on admission. She was started on IV Cardizem. She remains in atrial fibrillation this morning with a heart rate in the low 100s. She denies chest pain or pressure. She denies shortness of breath. * EKG reveals A. fib with RVR * Laboratory data: WBC 14.0. Hemoglobin 13.8. Platelet count 148. Sodium 140. Potassium 3.4. BUN 15. Creatinine 0.63. Troponin negative 1. * Current home cardiac medications include warfarin 5 mg at night, Imdur 30 mg daily, digoxin 125 g every 48 hours, metoprolol titrate 75 mg twice a day, lovastatin 40 mg daily, Cardizem 120 mg daily * Most recent echocardiogram obtained in January 2022 revealed ejection fraction 45-50%, mild aortic regurgitation, [id number] mitral regurgitation, mild tricuspid regurgitation 12/02/2022 Patient is status post laparoscopic cholecystectomy. She was found to have acute gangrenous cholecystitis. Postop day #1. Patient examined this morning at the bedside. Patient denies chest pain or pressure. She denies shortness of breath. She reports mild surgical discomfort. Telemetry reveals atrial fibrillation with a heart rate around 100-105. Her Coumadin remains on hold. 12/03/2022 Patient examined this morning at the bedside. Patient denies chest pain or pressure. Denies SOB. Vital signs are stable. Telemetry reveals atrial fibrillation with controlled ventricular rates in the 80s. INR 1.4. echocardiogram revealed EF 55-60%, mild MR, mild TR. PHYSICAL EXAM: VITAL SIGNS: Reviewed. GENERAL: Well-developed in no acute distress. HEENT: Head is normocephalic. Pupils are equal, round. Sclerae anicteric. Mucous membranes of the mouth are moist. Neck supple. No JVD or thyromegaly LUNGS: Respirations even and unlabored. Lungs essentially clear to auscultation bilaterally. HEART: Irregular rate and rhythm. S1 and S2 heard. ABDOMEN: Soft. Nondistended. EXTREMITIES: Normal range of motion. No clubbing or cyanosis. Peripheral pulses intact. No lower extremity edema NEUROLOGIC: Awake and alert. Oriented x 3. ASSESSMENT: Acute gangrenous cholecystitis, status post laparoscopic cholecystectomy Leukocytosis Persistent atrial fibrillation with RVR Coronary artery disease with previous stenting and CABG Hypertension Hyperlipidemia PLAN: Continue current cardiac medications Okay to resume Coumadin today per general surgery. Monitor INR Continue telemetry monitoring Stable for discharge from a cardiac standpoint Further recommendations pending patient's course Nurse practitioner note has been reviewed by physician. Signing provider agrees with the documented findings, assessment, and plan of care. Objective - Vital Signs Vital signs: Vital Signs Temp 97.7 F 12/03/22 04:40 Pulse 103 H 12/03/22 04:40 Resp 15 12/03/22 04:40 BP 123/73 12/03/22 04:40 Pulse Ox 93 L 12/03/22 04:40 FiO2 Intake & Output 12/02/22 12/03/22 12/03/22 18:59 06:59 18:59 Intake Total 358 Output Total 1025 1400 Balance -667 -1400 Intake: Oral 358 Output: Urine 500 1400 Straight 500 600 Post Void Residual 525 Other: Voiding Method Toilet Indwelling Catheter - Labs CBC & Chem 7: 12/03/22 06:41 12/03/22 06:41 Labs: Abnormal Lab Results - Last 24 Hours (Table) 12/02/22 12/02/22 12/03/22 Range/Units 07:42 07:42 06:41 WBC (3.8-10.6) k/uL RBC (3.80-5.40) m/uL Hgb (11.4-16.0) gm/dL Hct (34.0-46.0) % Plt Count (150-450) k/uL Neutrophils # (1.3-7.7) k/uL PT 18.9 H 14.3 H (9.0-12.0) sec INR 1.9 H 1.4 H (<1.2) Chloride (98-107) mmol/L BUN 19 H (7-17) mg/dL Glucose 134 H (74-99) mg/dL AST 58 H (14-36) U/L ALT 47 H (4-34) U/L Total Protein 6.1 L (6.3-8.2) g/dL 12/03/22 12/03/22 Range/Units 06:41 06:41 WBC 11.3 H (3.8-10.6) k/uL RBC 3.45 L (3.80-5.40) m/uL Hgb 10.9 L (11.4-16.0) gm/dL Hct 33.6 L (34.0-46.0) % Plt Count 137 L (150-450) k/uL Neutrophils # 9.6 H (1.3-7.7) k/uL PT (9.0-12.0) sec INR (<1.2) Chloride 110 H (98-107) mmol/L BUN (7-17) mg/dL Glucose 104 H (74-99) mg/dL AST (14-36) U/L ALT (4-34) U/L Total Protein (6.3-8.2) g/dL Microbiology - Last 24 Hours (Table) 12/01/22 04:05 Blood Culture - Preliminary Blood No Growth after 48 hours 12/01/22 04:20 Blood Culture - Preliminary Blood No Growth after 48 hours
[2022-12-03] MEDS: PANTOPRAZOLE 40 MG/10 ML VIAL IV SCH ×2 (09:09→20:27)
[2022-12-03] MEDS: DILTIAZEM CD 120 MG CAP.ER.24H PO SCH (09:10)
[2022-12-03] MEDS: SODIUM CHLORIDE 0.9% 1,000 ML IV SCH (09:10)
[2022-12-03] MEDS: DOCUSATE 100 MG CAP PO SCH ×2 (09:10→20:28)
[2022-12-03] MEDS: ISOSORBIDE MONONITRATE ER 30 MG TAB.ER.24H PO SCH (09:10)
[2022-12-03] MEDS: ATORVASTATIN 10 MG TAB PO SCH (09:10)
[2022-12-03] MEDS: METOPROLOL TARTRATE 50 MG TAB PO SCH ×2 (09:11→20:27)
[2022-12-03] MEDS ORDERED: polyethylene glycoL 3350 17 GM POWD.PACK PO STA (09:36)
[2022-12-03] MEDS ORDERED: TAMSULOSIN 0.4 MG CAP.ER.24H PO SCH (09:45)
[2022-12-03] MEDS ORDERED: Magnesium Replacement Protocol 1 EACH MISC MISCELLANE PRN (09:53)
--- NOTE | 2022-12-03 09:57 | P.PN ---
Subjective Progress Note Date: 12/03/22 H&P Date: 12/01/22 Chief Complaint: Abd. pain, dark black emesis This is a pleasant 81-year-old female with past medical history of atrial fibrillation-on Coumadin, CAD, history of CABG, PCI , anemia ,hypothyroidism,HLD, polyneuropathy, cervical spondylosis C4-5 with right neural foraminal narrowing and multiple other medical issues presented to the ER with complaints of significant abdominal pain, greatest in midepigastric and right upper quadrant, started last night approximately 2 hours after consuming meat loaf sandwich ,accompanied by nausea and one episode of vomiting "dark black "emesis. Otherwise hematuria, dysuria or change in voiding or bowel habits. CT of abdomen and pelvis reported evidence of a dilated gallbladder and mild thickening wall suggestive of acute cholecystitis, dilated urinary bladder consistent with bladder outlet obstruction, L2 compression fracture appears new, 3.4 cm abdominal aortic aneurysm, increased and bibasilar atelectasis. LFTs mildly elevated. Patient also was placed on Cardizem drip secondary to A. fib with RVR. Troponin negative. Afebrile, WBC 14. Lactic acid 1.9, Hemoglobin 13.8, platelets 148, INR 1.9. Potassium 3.4. Renal function stable. 12/02/22 evaluated by urology, recommendations noted and appreciated. Sidhu catheter inserted secondary to high PVRs. Status post laparoscopic jeet cystectomy with reported acute gangrenous cholecystitis, postop day #1. Post surgery, bleeding at the umbilicus incision site, resolved. Hemoglobin decreased to 11.4, platelets decreased to 139. AST 58, ALT 47, Maintained on antibiotics of Zosyn. Afebrile, WBC trending up to 14.5. Reports her diet was too advanced for her, she preferred to back down to full liquids, not quite ready for regular diet. Metoprolol increased yesterday ,remains in A. fib, tachycardic -better controlled. Coumadin remains on hold, resume once cleared as per surgery. Renal function stable, potassium 4.5. Denies chest pain, palpitations or shortness of breath. 12/03/2022 telemetry atrial fibrillation, rates better controlled. INR 1.4 , cleared to resume Coumadin as per surgery .Magnesium yesterday 1.7 ,level pending this morning. Echo reported normal LV function, biatrial enlargement. Denies any chest pain, palpitations. Reports mild shortness of breath, continues on 2 L nasal cannula maintaining O2 sats in the 90s. Tolerating full liquid diet, without nausea or vomiting. Reports no bowel movement since surgery. Passing flatus. Reports she was upset over requiring Sidhu catheter yesterday, reeducated and now understands related to her high post void residuals. Complains of abdominal cramping, spasms. Slept in chair. Minimal compliancy with incentive spirometer. Continues on Zosyn, afebrile, WBC trending down 11.3. Objective - Vital Signs Vital signs: Vital Signs Temp 97.7 F 12/03/22 04:40 Pulse 103 H 12/03/22 04:40 Resp 15 12/03/22 04:40 BP 123/73 12/03/22 04:40 Pulse Ox 96 12/03/22 08:19 FiO2 Intake & Output 12/02/22 12/03/22 12/03/22 18:59 06:59 18:59 Intake Total 358 236 Output Total 1025 1400 Balance -667 -1400 236 Intake: Oral 358 236 Output: Urine 500 1400 Straight 500 600 Post Void Residual 525 Other: Voiding Method Toilet Indwelling Catheter - Exam General: Alert and oriented 3 ,Sitting up in bed, NAD. Vitals reviewed Eyes: PERRL, EOMI, conjunctiva normal HENT: normocephalic, mucus membranes moist Neck: supple, no JVD Lungs: Unlabored normal respiratory effort,CTA, Bilateral bases diminished CV: irregular rhythm, no murmur. Peripheral pulses 2+ Abdomen: soft, status post surgery, abdominal binder present. Skin: warm and dry. Neuro: Cranial nerves II through XII grossly intact, no focal deficits - Labs CBC & Chem 7: 12/03/22 06:41 12/03/22 06:41 Labs: Abnormal Lab Results - Last 24 Hours (Table) 12/03/22 12/03/22 12/03/22 Range/Units 06:41 06:41 06:41 WBC 11.3 H (3.8-10.6) k/uL RBC 3.45 L (3.80-5.40) m/uL Hgb 10.9 L (11.4-16.0) gm/dL Hct 33.6 L (34.0-46.0) % Plt Count 137 L (150-450) k/uL Neutrophils # 9.6 H (1.3-7.7) k/uL PT 14.3 H (9.0-12.0) sec INR 1.4 H (<1.2) Chloride 110 H (98-107) mmol/L Glucose 104 H (74-99) mg/dL Microbiology - Last 24 Hours (Table) 12/01/22 04:05 Blood Culture - Preliminary Blood No Growth after 48 hours 12/01/22 04:20 Blood Culture - Preliminary Blood No Growth after 48 hours Assessment and Plan Assessment: Abdominal pain, acute gangrenous cholecystitis status post laparoscopic cholecystectomy Leukocytosis secondary to above Persistent atrial fibrillation with RVR in a patient with history of Chronic persistent A. fib. Bibasilar atelectasis, postop, expected outcome. Abdominal aortic aneurysm, increased in size, 3.4 cm, further follow-up outpatient vascular surgery Possible bladder outlet obstruction, urology following Urinary bladder retention, high PVRs, requiring sidhu cath. History of polyneuropathy, cervical [id number] right neural foraminal narrowing- Status post IVIG infusions. Anemia, hemolytic autioimmune, follows with hematology CAD, history of CABG,PCI Hypertension Hyperlipidemia Hypothyroidism Anxiety Plan: Continue on current medication regime ,monitoring and symptomatic treatment. Magnesium level ordered along with replacement protocol. No bowel mo vement yet, MiraLAX added to med regimen. Flomax initiated in addition to Sidhu catheter. Aggressive pulmonary toileting with incentive spirometer reinforced. Increase activity, continue weaning off oxygen, as tolerated. Diet advancement sinus pain management as per general surgery. Continue on PPI, Carafate and antibiotics.Coumadin has been resumed with close monitoring of INRs. Discharge planning in progress for tomorrow. The impression and plan of care has been dictated as directed. : I performed a history and examination of this patient, discussed the same with the dictator. I agree with the dictator's note ,documented as a scribe. Any additional findings or plans will be noted.
[2022-12-03] MEDS ORDERED: bisacodyL 10 MG SUPP RECTAL STA (12:20)
[2022-12-03] MEDS: LEVOTHYROXINE 112 MCG TAB PO SCH (13:00)
--- NOTE | 2022-12-03 14:04 | P.PN ---
Subjective Progress Note Date: 12/03/22 CHIEF COMPLAINT: Acute gangrenous cholecystitis HISTORY OF PRESENT ILLNESS: Patient is postop day #2 status post laparoscopic cholecystectomy. Patient complains of some abdominal cramping and spasming. S he is passing gas. No bowel movement. Denies any nausea or vomiting. Overall feeling better. She does have Phillips catheter placed for urinary retention. Patient would like to have a bowel movement. Afebrile. Heart rate 103. WBC is down from 14.5-11.3 hemoglobin 9.9 platelets 137 INR 1.4 sodium is 138 potassium 3.6 creatinine 0.62 magnesium 1.8 Patient seen and examined with Dr. Hernandez PHYSICAL EXAM: VITAL SIGNS: Reviewed. GENERAL: Well-developed in no acute distress. HEENT: No sclera icterus. Extraocular movements grossly intact. Moist buccal mucosa. Head is atraumatic, normocephalic. ABDOMEN: Soft. Nondistended. Incision sites clean dry and intact NEUROLOGIC: Alert and oriented. Cranial nerves II through XII grossly intact. ASSESSMENT: 1. Acute gangrenous cholecystitis status post laparoscopic cholecystectomy 2. A. fib RVR PLAN: -Patient can resume Coumadin tomorrow from surgical standpoint -Advance diet as tolerated -Continue antibiotics -Encourage patient to ambulate -Continue pain medication as needed -Encourage patient to use incentive spirometer -Anticipate discharge tomorrow Physician Parts Data Writer note has been reviewed by physician. Signing provider agrees with the documented findings, assessment, and plan of care. Objective - Vital Signs Vital signs: Vital Signs Temp 97.7 F 12/03/22 04:40 Pulse 103 H 12/03/22 04:40 Resp 15 12/03/22 04:40 BP 123/73 12/03/22 04:40 Pulse Ox 96 12/03/22 08:19 FiO2 Intake & Output 12/02/22 12/03/22 12/03/22 18:59 06:59 18:59 Intake Total 358 236 Output Total 1025 1400 Balance -667 -1400 236 Intake: Oral 358 236 Output: Urine 500 1400 Straight 500 600 Post Void Residual 525 Other: Voiding Method Toilet Indwelling Catheter - Labs CBC & Chem 7: 12/03/22 06:41 12/03/22 06:41 Labs: Abnormal Lab Results - Last 24 Hours (Table) 12/03/22 12/03/22 12/03/22 Range/Units 06:41 06:41 06:41 WBC 11.3 H (3.8-10.6) k/uL RBC 3.45 L (3.80-5.40) m/uL Hgb 10.9 L (11.4-16.0) gm/dL Hct 33.6 L (34.0-46.0) % Plt Count 137 L (150-450) k/uL Neutrophils # 9.6 H (1.3-7.7) k/uL PT 14.3 H (9.0-12.0) sec INR 1.4 H (<1.2) Chloride 110 H (98-107) mmol/L Glucose 104 H (74-99) mg/dL Microbiology - Last 24 Hours (Table) 12/01/22 04:05 Blood Culture - Preliminary Blood No Growth after 48 hours 12/01/22 04:20 Blood Culture - Preliminary Blood No Growth after 48 hours
[2022-12-03] MEDS: WARFARIN 5 MG TAB PO SCH (18:05)
[2022-12-03] MEDS ORDERED: DOXAZOSIN 2 MG TAB PO SCH (21:00)
[2022-12-04] MEDS: SODIUM CHLORIDE 0.9% 1,000 ML IV SCH ×2 (01:20→08:44)
[2022-12-04] MEDS: PIPERACILLIN-TAZOBACTAM 3.375 GM in SODIUM CHLORIDE 0.9% 100 ML IVPB SCH ×2 (04:56→11:02)
[2022-12-04] MEDS: SUCRALFATE 1 GM TAB PO SCH ×2 (05:55→11:02)
[2022-12-04] MEDS: LEVOTHYROXINE 112 MCG TAB PO SCH (05:55)
[2022-12-04 07:36] LABS: Basophils % (A) 0 %; Eosinophils # (A) 0.1 k/uL (0-0.7); Eosinophils % (A) 2 %; HCT 33.8 % (34.0-46.0); HGB 10.7 gm/dL (11.4-16.0); INR 1.2 (<1.2); Lymphocytes # (A) 0.9 k/uL (1.0-4.8); Lymphocytes % (A) 14 %; MCH 30.9 pg (25.0-35.0); MCHC 31.6 g/dL (31.0-37.0); Macrocytosis Slight; Mean Platelet Volume 8.6; Monocytes # (A) 0.4 k/uL (0-1.0); Monocytes % (A) 6 %; Neutrophils # (A) 5.3 k/uL (1.3-7.7); Neutrophils % (A) 76 %; Platelet Count 111 k/uL (150-450); Prothrombin Time 12.4 sec (9.0-12.0); RBC 3.45 m/uL (3.80-5.40); RDW 15.2 % (11.5-15.5); WBC 6.9 k/uL (3.8-10.6)
[2022-12-04 08:40] VITALS: BP 110/74; PULSE 108; RESP 16; TEMP 97.6
[2022-12-04] MEDS: PANTOPRAZOLE 40 MG/10 ML VIAL IV SCH (08:47)
[2022-12-04] MEDS: DIGOXIN 125 MCG TAB PO SCH (08:48)
[2022-12-04] MEDS: ATORVASTATIN 10 MG TAB PO SCH (08:48)
[2022-12-04] MEDS: DILTIAZEM CD 120 MG CAP.ER.24H PO SCH (08:48)
[2022-12-04] MEDS: ISOSORBIDE MONONITRATE ER 30 MG TAB.ER.24H PO SCH (08:48)
[2022-12-04] MEDS: DOCUSATE 100 MG CAP PO SCH (08:48)
[2022-12-04] MEDS: METOPROLOL TARTRATE 50 MG TAB PO SCH (08:48)
--- NOTE | 2022-12-04 09:59 | P.DS ---
Providers Date of admission: 12/01/22 04:20 Expected date of discharge: 12/04/22 Attending physician: Wilbert Mei MD Consults: 12/01/22 04:15 Consult Physician Urgent Consulting Provider: Tommy Hernandez Consult Reason/Comments: Cholecystitis Do you want consulting provider notified?: Yes 12/01/22 05:34 Consult Physician Routine Consulting Provider: Abdirashid Archer Consult Reason/Comments: atrial fibrillation with RVR. Do you want consulting provider notified?: Yes 12/01/22 13:49 Consult Physician Routine Consulting Provider: Bj Erwin Consult Reason/Comments: Bladder outlet obstruction Do you want consulting provider notified?: Yes Primary care physician: Wilbert Mei MD Hospital Course: Final Diagnoses: Abdominal pain, acute gangrenous cholecystitis status post laparoscopic cholecystectomy Leukocytosis secondary to above Persistent atrial fibrillation with RVR in a patient with history of Chronic persistent A. fib. Bibasilar atelectasis, postop, expected outcome. Abdominal aortic aneurysm, increased in size, 3.4 cm, further follow-up outpatient vascular surgery Possible bladder outlet obstruction, urology following Urinary bladder retention, high PVRs, requiring sidhu cath. History of polyneuropathy, cervical [id number] right neural foraminal narrowing- Status post IVIG infusions. Anemia, hemolytic autioimmune, follows with hematology CAD, history of CABG,PCI Hypertension Hyperlipidemia Hypothyroidism Anxiety Hospital course:This is a pleasant 81-year-old female with past medical history of atrial fibrillation-on Coumadin, CAD, history of CABG, PCI , anemia ,hypothyroidism,HLD, polyneuropathy, cervical spondylosis C4-5 with right neural foraminal narrowing and multiple other medical issues presented to the ER with complaints of significant abdominal pain, greatest in midepigastric and right upper quadrant, started last night approximately 2 hours after consuming meat loaf sandwich ,accompanied by nausea and one episode of vomiting "dark black "emesis. Otherwise hematuria, dysuria or change in voiding or bowel habits. CT of abdomen and pelvis reported evidence of a dilated gallbladder and mild thickening wall suggestive of acute cholecystitis, dilated urinary bladder consistent with bladder outlet obstruction, L2 compression fracture appears new, 3.4 cm abdominal aortic aneurysm, increased and bibasilar atelectasis. LFTs mildly elevated. Patient also was placed on Cardizem drip secondary to A. fib with RVR. Troponin negative. Afebrile, WBC 14. Lactic acid 1.9, Hemoglobin 13.8, platelets 148, INR 1.9. Potassium 3.4. Renal function stable. 12/02/22 evaluated by urology, recommendations noted and appreciated. Sidhu catheter inserted secondary to high PVRs. Status post laparoscopic cholecystectomy with reported acute gangrenous cholecystitis, postop day #1. Post surgery, bleeding at the umbilicus incision site, resolved. Hemoglobin decreased to 11.4, platelets decreased to 139. AST 58, ALT 47, Maintained on antibiotics of Zosyn. Afebrile, WBC trending up to 14.5. Reports her diet was too advanced for her, she preferred to back down to full liquids, not quite ready for regular diet. Metoprolol increased yesterday ,remains in A. fib, tachycardic -better controlled. Coumadin remains on hold, resume once cleared as per surgery. Renal function stable, potassium 4.5. Denies chest pain, p alpitations or shortness of breath. 12/03/2022 telemetry atrial fibrillation, rates better controlled. INR 1.4 , cleared to resume Coumadin as per surgery .Magnesium yesterday 1.7 ,level pending this morning. Echo reported normal LV function, biatrial enlargement. Denies any chest pain, palpitations. Reports mild shortness of breath, continues on 2 L nasal cannula maintaining O2 sats in the 90s. Tolerating full liquid diet, without nausea or vomiting. Reports no bowel movement since surgery. Passing flatus. Reports she was upset over requiring Sidhu catheter yesterday, reeducated and now understands related to her high post void residuals. Complains of abdominal cramping, spasms. Slept in chair. Minimal compliancy with incentive spirometer. Continues on Zosyn, afebrile, WBC trending down 11.3. Significant clinical improvement. Telemetry atrial fibrillation, rate better controlled, heart rate currently in the 90s.Maintaining O2 sats in the low 90s on room air, O2 sat on room air after ambulation pending. Pain controlled with current med regimen, reports mild surgical tenderness with exertion. Afebrile, normal WBC. Denies chest pain, palpitations or shortness of breath. Denies lightheadedness, dizziness or focal deficits. Cleared by surgery for discharge. Patient will be discharged home today in a stable condition with guarded prognosis. The impression and plan of care has been dictated as directed. : I performed a history and examination of this patient, discussed the same with the dictator. I agree with the dictator's note ,documented as a scribe. Any additional findings or plans will be noted. Patient Condition at Discharge: Stable Plan - Discharge Summary Discharge Rx Participant: Yes New Discharge Prescriptions: New HYDROcodone/APAP 5-325MG [[place] 5-325] 1 tab PO Q6HR PRN 3 Days #12 tab PRN Reason: Pain Amoxic-Pot Clav 875-125Mg [Augmentin 875-125] 1 tab PO BID 5 Days #10 tab Sucralfate [Carafate] 1 gm PO ACHS #60 tab Metoprolol Tartrate [Lopressor] 100 mg PO BID #60 tab polyethylene glycoL 3350 [Miralax] 17 gm PO DAILY #1 packet Continue allopurinoL [Zyloprim] 300 mg PO DAILY Warfarin [Coumadin] 5 mg PO HS Terazosin [Hytrin] 2 mg PO HS Pantoprazole [Protonix] 40 mg PO DAILY Digoxin [Lanoxin] 125 mcg PO Q48H #15 tab Zinc Sulfate [Orazinc] 220 mg PO DAILY #30 capsule Levothyroxine Sodium [Synthroid] 112 mcg PO DAILY Folic Acid 0.8 mg PO DAILY Calcium Citrate/Vitamin D3 [Citracal + D Maximum Caplet] 1 tab PO DAILY Lovastatin [Mevacor] 40 mg PO DAILY Isosorbide Mononitrate ER [Imdur] 30 mg PO DAILY Multivitamins, Thera [Multivitamin (formulary)] 1 tab PO DAILY dilTIAZem HCL [Cardizem CD] 120 mg PO DAILY Discontinued Metoprolol Tartrate 75 mg PO BID #180 tab Discharge Medication List allopurinoL [Zyloprim] 300 mg PO DAILY 07/30/19 [History] Isosorbide Mononitrate ER [Imdur] 30 mg PO DAILY 01/19/22 [History] Lovastatin [Mevacor] 40 mg PO DAILY 01/19/22 [History] Pantoprazole [Protonix] 40 mg PO DAILY 01/19/22 [History] Terazosin [Hytrin] 2 mg PO HS 01/19/22 [History] Warfarin [Coumadin] 5 mg PO HS 01/19/22 [History] Multivitamins, Thera [Multivitamin (formulary)] 1 tab PO DAILY 02/02/22 [History] Digoxin [Lanoxin] 125 mcg PO Q48H #15 tab 02/10/22 [Rx] Zinc Sulfate [Orazinc] 220 mg PO DAILY #30 capsule 02/10/22 [Rx] Calcium Citrate/Vitamin D3 [Citracal + D Maximum Caplet] 1 tab PO DAILY 12/01/22 [History] Folic Acid 0.8 mg PO DAILY 12/01/22 [History] Levothyroxine Sodium [Synthroid] 112 mcg PO DAILY 12/01/22 [History] dilTIAZem HCL [Cardizem CD] 120 mg PO DAILY 12/01/22 [History] Amoxic-Pot Clav 875-125Mg [Augmentin 875-125] 1 tab PO BID 5 Days #10 tab 12/04/22 [Rx] HYDROcodone/APAP 5-325MG [[place] 5-325] 1 tab PO Q6HR PRN 3 Days #12 tab 12/04/22 [Rx] Metoprolol Tartrate [Lopressor] 100 mg PO BID #60 tab 12/04/22 [Rx] Sucralfate [Carafate] 1 gm PO ACHS #60 tab 12/04/22 [Rx] polyethylene glycoL 3350 [Miralax] 17 gm PO DAILY #1 packet 12/04/22 [Rx] Follow up Appointment(s)/Referral(s): Wilbert Mei MD [Primary Care Provider] - 1 Week James Ames MD [STAFF PHYSICIAN] - 1 Week Santiago Maria [NON-STAFF] - Tommy Hernandez MD [STAFF PHYSICIAN] - 12/15/22 3:15 pm Ambulatory/Diagnostic Orders: Complete Blood Count w/diff [LAB.AMB] Time Frame: 12/07/22, Location: None Selected Activity/Diet/Wound Care/Special Instructions: O2 sat on room air after ambulation pending. Sidhu catheter to remain at DC with urology follow-up as advised outpatient. Diet: Low fat, low fiber x first 2 weeks Discharge Disposition: HOME WITH HOME HEALTH SERVICES
--- NOTE | 2022-12-04 10:15 | P.PN ---
Subjective Progress Note Date: 12/04/22 HISTORY OF PRESENT ILLNESS: This is a 81-year-old female with a past medical history significant for coronary artery disease with previous stenting and three-vessel CABG in 1998, persistent atrial fibrillation, hypertension, and hyperlipidemia. Patient follows in the office with Dr. Miller. We have been asked to see the patient in consultation for A. fib with RVR. Patient examined at the bedside. Patient presented to the hospital yesterday with a chief complaint of back pain, abdominal pain, nausea and vomiting. The patient states she started having nausea yesterday and was vomiting frequently in the afternoon. She states she was having dark brown/black emesis. The patient is anticoagulated with Coumadin. Her INR is 1.9. Hemoglobin has been stable. She reports right upper quadrant and epigastric pain. The patient was found to be in A. fib with RVR on admission. She was started on IV Cardizem. She remains in atrial fibrillation this morning with a heart rate in the low 100s. She denies chest pain or pressure. She denies shortness of breath. * EKG reveals A. fib with RVR * Laboratory data: WBC 14.0. Hemoglobin 13.8. Platelet count 148. Sodium 140. Potassium 3.4. BUN 15. Creatinine 0.63. Troponin negative 1. * Current home cardiac medications include warfarin 5 mg at night, Imdur 30 mg daily, digoxin 125 g every 48 hours, metoprolol titrate 75 mg twice a day, lovastatin 40 mg daily, Cardizem 120 mg daily * Most recent echocardiogram obtained in January 2022 revealed ejection fraction 45-50%, mild aortic regurgitation, [id number] mitral regurgitation, mild tricuspid regurgitation 12/02/2022 Patient is status post laparoscopic cholecystectomy. She was found to have acute gangrenous cholecystitis. Postop day #1. Patient examined this morning at the bedside. Patient denies chest pain or pressure. She denies shortness of breath. She reports mild surgical discomfort. Telemetry reveals atrial fibrillation with a heart rate around 100-105. Her Coumadin remains on hold. 12/03/2022 Patient examined this morning at the bedside. Patient denies chest pain or pressure. Denies SOB. Vital signs are stable. Telemetry reveals atrial fibrillation with controlled ventricular rates in the 80s. INR 1.4. echocardiogram revealed EF 55-60%, mild MR, mild TR. 12/04/2022 Patient examined this morning at the bedside. Patient denies chest pain or pressure. She denies shortness of breath. Vital signs are stable. Telemetry reveals atrial fibrillation with heart rates around [id number]. PHYSICAL EXAM: VITAL SIGNS: Reviewed. GENERAL: Well-developed in no acute distress. HEENT: Head is normocephalic. Pupils are equal, round. Sclerae anicteric. Mucous membranes of the mouth are moist. Neck supple. No JVD or thyromegaly LUNGS: Respirations even and unlabored. Lungs essentially clear to auscultation bilaterally. HEART: Irregular rate and rhythm. S1 and S2 heard. ABDOMEN: Soft. Nondistended. EXTREMITIES: Normal range of motion. No clubbing or cyanosis. Peripheral pulses intact. No lower extremity edema NEUROLOGIC: Awake and alert. Oriented x 3. ASSESSMENT: Acute gangrenous cholecystitis, status post laparoscopic cholecystectomy Leukocytosis Persistent atrial fibrillation with RVR Coronary artery disease with previous stenting and CABG Hypertension Hyperlipidemia PLAN: Continue current cardiac medications Continue Coumadin Continue telemetry monitoring Stable for discharge from a cardiac standpoint Further recommendations pending patient's course Nurse practitioner note has been reviewed by physician. Signing provider agrees with the documented findings, assessment, and plan of care. Objective - Vital Signs Vital signs: Vital Signs Temp 97.6 F 12/04/22 08:38 Pulse 108 H 12/04/22 08:38 Resp 16 12/04/22 08:38 BP 110/74 12/04/22 08:38 Pulse Ox 92 L 12/04/22 08:38 FiO2 Intake & Output 12/03/22 12/04/22 12/04/22 18:59 06:59 18:59 Intake Total 472 360 Output Total 600 1300 600 Balance -128 -1300 -240 Intake: Oral 472 360 Output: Urine 600 1300 600 Straight 200 600 Other: Voiding Method Indwelling Catheter Indwelling Catheter Indwelling Catheter - Labs CBC & Chem 7: 12/04/22 06:30 12/03/22 06:41 Labs: Abnormal Lab Results - Last 24 Hours (Table) 12/04/22 12/04/22 Range/Units 06:30 06:30 RBC 3.45 L (3.80-5.40) m/uL Hgb 10.7 L (11.4-16.0) gm/dL Hct 33.8 L (34.0-46.0) % Plt Count 111 L (150-450) k/uL Lymphocytes # 0.9 L (1.0-4.8) k/uL PT 12.4 H (9.0-12.0) sec INR 1.2 H (<1.2) Microbiology - Last 24 Hours (Table) 12/01/22 04:20 Blood Culture - Preliminary Blood No Growth after 72 hours 12/01/22 04:05 Blood Culture - Preliminary Blood No Growth after 72 hours
--- NOTE | 2022-12-04 10:45 | P.PN ---
Subjective Progress Note Date: 12/04/22 CHIEF COMPLAINT: Acute gangrenous cholecystitis HISTORY OF PRESENT ILLNESS: Patient is postop day #3 status post laparoscopic cholecystectomy. Patient sitting up in bed. Her pain is controlled. She's to lerating diet. She has been up and ambulating. She did have a bowel movement. Afebrile. White count is down from 11-6.9 Hgb 10.7 patient is been restarted on Coumadin. Patient seen and examined with Dr. Hernandez PHYSICAL EXAM: VITAL SIGNS: Reviewed. GENERAL: Well-developed in no acute distress. HEENT: No sclera icterus. Extraocular movements grossly intact. Moist buccal mucosa. Head is atraumatic, normocephalic. ABDOMEN: Soft. Nondistended. Incision sites clean dry and intact NEUROLOGIC: Alert and oriented. Cranial nerves II through XII grossly intact. ASSESSMENT: 1. Acute gangrenous cholecystitis status post laparoscopic cholecystectomy 2. A. fib RVR PLAN: -Patient is stable from surgical standpoint for discharge -Discharge Antibiotics per medicine service Physician Music Cataloguer note has been reviewed by physician. Signing provider agrees with the documented findings, assessment, and plan of care. Objective - Vital Signs Vital signs: Vital Signs Temp 97.6 F 12/04/22 08:38 Pulse 108 H 12/04/22 08:38 Resp 16 12/04/22 08:38 BP 110/74 12/04/22 08:38 Pulse Ox 92 L 12/04/22 08:38 FiO2 Intake & Output 12/03/22 12/04/22 12/04/22 18:59 06:59 18:59 Intake Total 472 360 Output Total 600 1300 600 Balance -128 -1300 -240 Intake: Oral 472 360 Output: Urine 600 1300 600 Straight 200 600 Other: Voiding Method Indwelling Catheter Indwelling Catheter Indwelling Catheter - Labs CBC & Chem 7: 12/04/22 06:30 12/03/22 06:41 Labs: Abnormal Lab Results - Last 24 Hours (Table) 12/04/22 12/04/22 Range/Units 06:30 06:30 RBC 3.45 L (3.80-5.40) m/uL Hgb 10.7 L (11.4-16.0) gm/dL Hct 33.8 L (34.0-46.0) % Plt Count 111 L (150-450) k/uL Lymphocytes # 0.9 L (1.0-4.8) k/uL PT 12.4 H (9.0-12.0) sec INR 1.2 H (<1.2) Microbiology - Last 24 Hours (Table) 12/01/22 04:20 Blood Culture - Preliminary Blood No Growth after 72 hours 12/01/22 04:05 Blood Culture - Preliminary Blood No Growth after 72 hours
[2022-12-04] MEDS: WARFARIN 5 MG TAB PO SCH (11:02)
== END 2022-12-04 11:31 | disposition home health service (06) | DRG 854 ==
LOC: EC 02:02 → 3SCARD 04:20
PROVIDERS: ADMIT Family Medicine; ATTEND Family Medicine
PROC: 0FT44ZZ Resection of Gallbladder, Percutaneous Endoscopic Approach (ICD-10-PCS; principal; 2022-12-01 11:55)
DX: A41.9 Sepsis, unspecified organism (principal); D59.10 Autoimmune hemolytic anemia, unspecified; K81.0 Acute cholecystitis; I48.19 Other persistent atrial fibrillation; J98.11 Atelectasis; M48.56XA Collapsed vertebra, not elsewhere classified, lumbar region, initial encounter for fracture; K82.A1 Gangrene of gallbladder in cholecystitis; R15.9 Full incontinence of feces; R32 Unspecified urinary incontinence; K59.00 Constipation, unspecified; I71.40 Abdominal aortic aneurysm, without rupture, unspecified; I25.10 Atherosclerotic heart disease of native coronary artery without angina pectoris; G62.9 Polyneuropathy, unspecified; M48.02 Spinal stenosis, cervical region; R74.01 Elevation of levels of liver transaminase levels; R33.9 Retention of urine, unspecified; M47.812 Spondylosis without myelopathy or radiculopathy, cervical region; N32.0 Bladder-neck obstruction; I11.9 Hypertensive heart disease without heart failure; F41.9 Anxiety disorder, unspecified; E87.6 Hypokalemia; E78.5 Hyperlipidemia, unspecified; E03.9 Hypothyroidism, unspecified; Z96.652 Presence of left artificial knee joint; Z79.01 Long term (current) use of anticoagulants; Z95.5 Presence of coronary angioplasty implant and graft; Z95.1 Presence of aortocoronary bypass graft; Z79.899 Other long term (current) drug therapy; Z79.890 Hormone replacement therapy; Z88.5 Allergy status to narcotic agent
CPT/HCPCS: 36415; 74177; 80048; 80053; 82150; 83605; 83690; 83735; 84484; 85025; 85610; 85730; 86850; 86900; 86901; 87040; 88304; 93005; 93306; 94760; 96361; 96365; 96375; 96376; 99285

== ENCOUNTER → 2023-12-21 | Outpatient (CLI) | payer MEDICARE ==
[2023-12-21 11:18] LABS: African American GFR (CKD) >90 (>60 ml/min/1.73 sqM); Blood Urea Nitrogen 19 mg/dL (7-17); Non-African American GFR(CKD) 83 (>60 ml/min/1.73 sqM)
--- NOTE | 2023-12-23 21:23 | CT ---
EXAMINATION TYPE: CT angio abdomen DATE OF EXAM: 12/21/2023 COMPARISON: CT abdomen and pelvis 12/01/2022 HISTORY: hx of AAA CT DLP: 952 mGycm Automated exposure control for dose reduction was used. Contrast: None Technique: Axial images 2 mm thick sections. Reconstructed images in the coronal and sagittal plane. Three-D reconstructed images are reviewed on the computer. FINDINGS: Calcifications through the aorta. The celiac axis and superior mesenteric artery origins appear sally l. Atheromatous plaque is at the left renal artery origin. Right renal artery origin appears patent. Below the level of the renal arteries there is an abdominal aortic fusiform prominence with an AP dim ension of 3.4 cm. Previous measurement 3.3 cm, within measurement error. This terminates above the bi furcation. Common iliac vessels internal and external iliac vessels are patent. Liver spleen adrenal glands and pancreas appear unremarkable. Gallbladder is not clearly identified. There is a renal cyst in the posterior lateral right mid kidney measuring 1.8 cm. no renal stones are identified. Loops of bowel without contrast. Unremarkable. IMPRESSION: 1. FUSIFORM PROMINENCE MID ABDOMINAL AORTA BELOW THE RENAL ARTERIES AND TERMINATING ABOVE THE BIFURCA TION MEASURING 3.4 CM. 2. RIGHT RENAL CYST
== END | disposition home or self-care (01) ==
LOC: RADCTMAIN 10:15
PROVIDERS: ATTEND Internal Medicine Interventional Cardiology
DX: N28.1 Cyst of kidney, acquired (principal); I71.40 Abdominal aortic aneurysm, without rupture, unspecified
CPT/HCPCS: 82565; 84520; 74175; 36415; Q9967

== ENCOUNTER → 2024-07-12 | Outpatient (CLI) | payer MEDICARE ==
--- NOTE | 2024-07-16 11:31 | MM ---
Reason for Exam: Screening (asymptomatic). Last mammogram was performed 1 year(s) and 9 month(s) ago. Patient History: Menarche at age 16. First Full-Term at age 18. Left ovary removed at age 29. Right ovary removed at age 29. Hysterectomy at age 29. Postmenopausal. Estrogen for 6 months starting at age 29. Hormonal Contraceptives, starting at age 20 for 3 years. Paternal cousin had breast cancer, age 45. Paternal aunt had breast cancer, age 60. Sister had ovarian cancer under age 50. Sister had ovarian cancer at or over age 50. Risk Values: Jihan 5 year model risk: 1.0%. NCI Lifetime model risk: 1.2%. Prior Study Comparison: 01/24/2013 Bilateral Screening Mammogram, [facility]. 03/07/2018 Bilateral Screening Mammogram, [facility]. 03/17/2019 Bilateral Screening Mammogram, [facility]. 07/10/2021 Bilateral Screening Mammogram, [facility]. 10/14/2022 Bilateral MG 3D screening mammo w/cad, [facility]. Tissue Density: The breasts are almost entirely fatty. Findings: Analyzed By CAD. Right breast: There is no suspicious group of microcalcifications or new suspicious mass. Left breast: There is no suspicious group of microcalcifications or new suspicious mass. Overall Assessment: Negative, BI-RAD 1 Management: Screening Mammogram of both breasts in [address] [facility] will attempt to contact patient to return for supplemental views and ultrasound if indicated. Patient should continue monthly self-breast exams. A clinical breast exam by your physician is recommended on an annual basis. This exam should not preclude additional follow-up of suspicious palpable abnormalities. Note on Jihan scores and lifetime risk: 1. A Jihan score greater than 3% is considered moderate risk. If this is the case, consider specialist referral to assess eligibility for a risk reducing agent. 2. If overall lifetime risk for the development of breast cancer is 20% or higher, the patient may qualify for future screening with alternating mammogram and breast MRI. Electronically signed and approved by: Topher Silva DO
== END | disposition home or self-care (01) ==
LOC: RADMAMWWP 11:03
PROVIDERS: ATTEND Family Medicine
DX: Z12.31 Encounter for screening mammogram for malignant neoplasm of breast
CPT/HCPCS: 77063; 77067

== ENCOUNTER → 2024-07-21 | Outpatient (CLI) | payer MEDICARE ==
--- NOTE | 2024-07-21 11:50 | CT ---
EXAMINATION TYPE: CT abdomen pelvis wo con CT DLP: 716 mGycm, Automated exposure control for dose reduction was used. DATE OF EXAM: 07/21/2024 11:22 AM COMPARISON: 12/21/2023 CLINICAL INDICATION: Female, 83 years old with history of K52.9 COLITIS K29.50 GASTRITIS W/O BLEEDIN G; abdominal pain, constipation TECHNIQUE: Axial CT abdomen pelvis wo con;Sagittal and coronal reformats were created on a separate workstation. Contrast used: mL of , (none if empty) Oral contrast used: without Oral Contrast (none if empty) FINDINGS: LOWER CHEST: Scarring changes in the lung bases. Heart is mildly enlarged. Aortic valve consultations . Severe coronary artery calcific patient's. ABDOMEN LIVER: Unremarkable GALLBLADDER AND BILE DUCTS: Unremarkable. PANCREAS: Unremarkable. SPLEEN: Unremarkable. ADRENAL GLANDS: Unremarkable. KIDNEYS AND URETERS: No evidence of hydronephrosis or renal calculus. The ureters are unremarkable. P robable simple right renal cyst. PELVIS BLADDER: Unremarkable REPRODUCTIVE: Unremarkable. ABDOMEN & PELVIS STOMACH AND BOWEL: Small hiatal hernia, duodenum is unremarkable. The stomach is relatively normal in its appearance without contrast. Scattered diverticula are noted throughout the colon. No evidence o f bowel obstruction. PERITONEUM/RETROPERITONEUM: No evidence of pneumoperitoneum or free fluid. VASCULATURE: Mild atherosclerotic calcifications are present throughout the abdominal aorta and its b ranches. infrarenal abdominal aorta fusiform dilation up to 3.4 cm. MUSCULOSKELETAL: No acute osseous abnormalities. Moderate disc degeneration changes are present throu ghout the thoracolumbar spine. LYMPH NODES: No gross evidence for lymphadenopathy. SOFT TISSUE/ABDOMINAL WALL: Fat-containing umbilical hernia. IMPRESSION: 1. Small to moderate amount stool in the colon. 2. Normal appearance of the stomach without IV or oral contrast. 3. Colonic diverticula. 4. Infrarenal abdominal aortic aneurysm measuring up to 3.4 cm.
== END | disposition home or self-care (01) ==
LOC: RADCTMAIN 11:02
PROVIDERS: ATTEND Family Medicine
DX: I71.43 Infrarenal abdominal aortic aneurysm, without rupture (principal); K57.30 Diverticulosis of large intestine without perforation or abscess without bleeding; K59.00 Constipation, unspecified; K52.9 Noninfective gastroenteritis and colitis, unspecified; K29.50 Unspecified chronic gastritis without bleeding; Z87.19 Personal history of other diseases of the digestive system
CPT/HCPCS: 74176